=== PATIENT | female | born 1945 | race African-American/Black ===

== ENCOUNTER 2023-12-18 10:58 | Outpatient (AMB) | payer MEDICARE, MEDICAID, SELFPAY ==
--- NOTE | 2023-12-18 09:50 | HO.NEPHOV_ITS ---
Vital Signs 12/18/23 11:03 Height 5 ft 5 in Weight 140 lb BMI 23.3 BP 142/60 H Blood Pressure Location Lt brachial Position Sitting Pulse 60 Pulse Source Pulse Oximeter Pulse Oximetry (%) 96 Oxygen Delivery Method Room Air Intake Visit Reasons: CKD/ LVM Bottle Filler Required: No Accompanied by: Son Allergies No Known Allergies Allergy (Verified 12/18/23 11:06) HPI Comments Details: I had the pleasure of seeing Delaney in consultation and management of her history of hypokalemia and hypertension. She has had CVA with right hemiparesis. She has history of seizures and has been on Keppra. She has history of aortic stenosis and was evaluated for TAVR. She was deemed not to be a candidate for TAVR in the past. She regularly follows up cardiology. She has history of congestive heart failure. She is on multiple antihypertensive medications along with statins. She has history of adrenal hyperplasia seen on MRI and is going to be followed by an associate material handler. She has history of hemorrhagic shock with hemothorax. She has history of anemia and pancreatic cy st. She has had colonic polyps and is due colonoscopy in 2024. She also has history of to pancreatic cyst his which was deemed not to be high risk for malignancy and Gastroenterology is closely following it up. She denies any chest pain, shortness of breath, proximal nocturnal dyspnea, orthopnea or orthostatic symptoms. Her last serum creatinine has been normal. Her BP is not consistently at goal. [facility] Medical History (Updated 12/18/23 @ 09:57 by Marc Canales MD) Polyp of colon Aortic stenosis Essential (primary) hypertension History of radioactive iodine thyroid ablation DM (diabetes mellitus), type 2 with renal complications Chronic pain of both knees Stasis dermatitis of both legs Goiter Carpal tunnel syndrome, bilateral DM (diabetes mellitus), type 2 with neurological complications Microalbuminuria Hyperlipidemia CHF (congestive heart failure) Insomnia Aphasia Hemiparesis History of CVA with residual deficit Chronic kidney disease (CKD) Nonischemic cardiomyopathy History of [place] (myocardial infarction) Epileptic disorder Adrenal hyperplasia High plasma von Willebrand factor (vWF) Surgical History S/P cardiac cath Family History Son Hypertension Review of Systems Const All systems reviewed & are unremarkable except as noted in HPI and below Physical Exam Vital Signs: Last Vital Signs Pulse 60 12/18/23 11:03 BP 142/60 H 12/18/23 11:03 Pulse Ox 96 12/18/23 11:03 Oxygen Delivery Method Room Air 12/18/23 11:03 BMI result Body Mass Index 23.3 Const General: comfortable and no acute distress Orientation/consciousness: patient oriented x3 HEENT Head: Yes normocephalic Mouth: Normal oral and palatal mucosa present Eyes EOM: EOMs intact bilaterally Neck Neck: Yes supple Resp Auscultation: clear to auscultation bilaterally Cardio Jugular venous distension: no JVD Rate: regular rate Heart sounds: Murmur heart sound present GI Palpation (GI): Soft to palpation Auscultation: normal bowel sounds General: Yes no CVA tenderness Back/Spine/Pelvis Back: no CVA tenderness Skin General skin exam: no rashes or lesions noted Neuro General: patient oriented x3 Extrem General: Yes no pedal edema Results Reviewed Nephrology Results: No Data to Display Assessment & Plan Assessment & Plan (1) Hypokalemia: Code(s): E87.6 - Hypokalemia Category: Medical (2) Essential (primary) hypertension: Code(s): I10 - Essential (primary) hypertension Category: Medical (3) Adrenal hyperplasia: Code(s): E27.8 - Other specified disorders of adrenal gland Category: Medical (4) Cardiomyopathy: Code(s): I42.9 - Cardiomyopathy, unspecified Category: Medical Qualifiers: Cardiomyopathy type: other Qualified Code(s): I42.8 - Other cardiomyopathies (5) Hemiparesis affecting right side as late effect of cerebrovascular accident: Code(s): I69.351 - Hemiplegia and hemiparesis following cerebral infarction affecting right dominant side Category: Medical Plan Delaney has longstanding hypertension with cardiomyopathy and history of CVA with a residual right hemiparesis. She has a diabetic. She has history of hypokalemia. I reduced her amlodipine to 5 mg daily and started on spironolactone 12.5 mg daily which should control her serum potassium and blood pressure especially given history of cardiomyopathy. I shall maximize Spironolactone and D/C Amlodipine if her K permits. If her clinical status permits we need to explore whether she is a candidate for TAVR with a 2nd opinion in [place] ( if already turned down locally). She needs to follow-up with her associate material handler and needs labs to check for her adrenal issues. Her blood sugar needs to be maintained at goal. She needs to maintain good hydration and minimize salt in the diet. She should not take any nonsteroidal anti-inflammatories. All these have been discussed in detail. Time taken to review or her medical records from [place], patient encounter and documentation 61 minutes. Answered all questions. Follow-up appointment given. Orders: Orders Blood Urea Nitrogen Today E87.6 - Hypokalemia, I10 - Essential (primary) hypertension, I42.8 - Other cardiomyopathies Electrolytes Today E87.6 - Hypokalemia, I10 - Essential (primary) hypertension, I42.8 - Other cardiomyopathies Creatinine Today E87.6 - Hypokalemia, I10 - Essential (primary) hypertension, I42.8 - Other cardiomyopathies Medications: New spironolactone 12.5 mg (1/2 x 25 mg) PO DAILY 30 tabs 1RF Coding Level of Care Code New Pt Level 5 (78850) Diagnoses Hypokalemia E87.6 Essential (primary) hypertension I10 Adrenal hyperplasia E27.8 Other cardiomyopathy I42.8 Cardiomyopathy type: other Hemiparesis affecting right side as late effect of cerebrovascular accident I69.351
[2023-12-18 11:03] VITALS: BP 142/60; PULSE 60; O2SAT 96; BMI 23.3
== END 2023-12-18 11:34 | disposition home or self-care (01) ==
PROVIDERS: PCP Internal Medicine; Referring Provider Internal Medicine; Visit Provider Internal Medicine Nephrology
DX: E87.6 Hypokalemia (principal); I10 Essential (primary) hypertension; E27.8 Other specified disorders of adrenal gland; I42.8 Other cardiomyopathies; I69.351 Hemiplegia and hemiparesis following cerebral infarction affecting right dominant side
CPT/HCPCS: 99205; 99215

== ENCOUNTER → 2023-12-18 10:58 | Outpatient (BNVA) | payer MEDICARE, MEDICAID, SELFPAY | PROVIDERS: PCP Internal Medicine; Referring Provider Internal Medicine; Visit Provider Internal Medicine Nephrology | DX: E87.6 Hypokalemia (principal); E27.8 Other specified disorders of adrenal gland; I10 Essential (primary) hypertension; I69.351 Hemiplegia and hemiparesis following cerebral infarction affecting right dominant side; I42.8 Other cardiomyopathies | CPT/HCPCS: 99202 ==

== ENCOUNTER 2024-02-05 10:37 | Outpatient (REF) | payer MEDICARE, MEDICAID, SELFPAY ==
[2024-02-05 17:53] LABS: Anion Gap 14 (12-20); Blood Urea Nitrogen 15 mg/dL (9-16); Carbon Dioxide 25 mmol/L (22-29); Chloride 107 mmol/L (96-108); Estimated Glomerular Filt Rate 53; Potassium 3.1 mmol/L (3.3-5.1); Sodium 143 mmol/L (135-145)
== END 2024-02-05 10:38 | disposition home or self-care (01) ==
LOC: HO.HKASLDS 10:37
PROVIDERS: Visit Provider Internal Medicine Nephrology
DX: I42.8 Other cardiomyopathies (principal); E87.6 Hypokalemia; I10 Essential (primary) hypertension
CPT/HCPCS: 36415; 80051; 82565; 84520

== ENCOUNTER 2024-03-12 10:41 | Outpatient (AMB) | payer MEDICARE, MEDICAID, SELFPAY ==
--- NOTE | 2024-03-12 10:45 | MHC.OFFVIS ---
Vital Signs 03/12/24 10:49 Height 5 ft 5 in BP 138/70 Blood Pressure Location Lt brachial Position Sitting Pulse 56 Pulse Source Pulse Oximeter Pulse Oximetry (%) 98 Oxygen Delivery Method Room Air Intake Visit Reasons: ENP-Seizure and cva Intake Note: Patient presents in office for a new patient evaluation for seizures/stroke. Pt was being seen by [facility] neurology but was discharged 1 yr ago. Compression Molding Machine Setter Required: No Accompanied by: Son Allergies No Known Allergies Allergy (Verified 03/12/24 10:46) Medication List - Last Reconciled 03/12/24 by Cindy Bush MD amlodipine 5 mg PO DAILY aspirin-dipyridamole 25-200 mg 1 cap PO BID atorvastatin 80 mg PO DAILY hydralazine 100 mg PO TID labetalol mg PO TID levetiracetam 500 mg PO BID spironolactone 12.5 mg (1/2 x 25 mg) PO DAILY valsartan 160 mg PO DAILY HPI Comments Details: 78y/o Right handed female comes for further management of seizures. she is accompanied by her son who helps with history.Some history was also obtained from her PCP Dr. Harley's note.she had a CVA ( Hemorrhagic stroke )in November of 2021 when she presented with Right hemiparesis and aphasia. According to her son she was started on Aspirin /dipyridamol 25/200 and levetiracetam 500mg bid He has not witnessed a seizure but was told that her seizures were due to stroke and needs it life long. She is home , wheelchair and bed bound with 24 hr help. she has some speech and swallowing issues and weakness Right UE and LE. she denies any side effects form medications I don't have reports from her stroke admission she has sleep issues with snoring and hypersomnia. [facility] Medical History Seizure Hypersomnia Snoring Polyp of colon Aortic stenosis Essential (primary) hypertension History of radioactive iodine thyroid ablation DM (diabetes mellitus), type 2 with renal complications Chronic pain of both knees Stasis dermatitis of both legs Goiter Carpal tunnel syndrome, bilateral DM (diabetes mellitus), type 2 with neurological complications Microalbuminuria Hyperlipidemia CHF (congestive heart failure) Insomnia Aphasia Hemiparesis History of CVA with residual deficit Chronic kidney disease (CKD) Nonischemic cardiomyopathy History of [place] (myocardial infarction) Epileptic disorder Adrenal hyperplasia High plasma von Willebrand factor (vWF) Surgical History S/P cardiac cath Family History Son Hypertension Physical Exam Vital Signs: Last Vital Signs Pulse 56 03/12/24 10:49 BP 138/70 03/12/24 10:49 Pulse Ox 98 03/12/24 10:49 Oxygen Delivery Method Room Air 03/12/24 10:49 Const General: cooperative and comfortable Nutritional Appearance: overweight Orientation/consciousness: patient oriented x3 Eyes Pupils: Equal, round and reactive pupils present Neuro Other: Mild right facial weakness Speech- able to name , repeat , comprehend, dysarthria Mallampatti grade 4 Facial sensation - normal Motor- Left UE and LE 5/5 Tone - normal Right UE- 2-3/5 -spasticity in Right shoulder elbow wrist and fingers Left LE- 2-3/5 with increased tone wheel chair bound General: patient oriented x3 and Unable to assess gait Cranial nerves: Yes Equal, round and reactive pupils present, Yes Bilaterally intact EOM present, Yes Nystagmus not present and Yes Midline tongue present Cognition (Neuro): normal cognition Gait exam (Neuro): Unable to assess gait Deep tendon reflexes (DTR's): Right triceps reflex intensity grade: 3+, Left triceps reflex intensity grade: 2+, Rt Biceps (C5, C6): 3+, Left biceps reflex intensity grade: 2+, Right brachioradialis reflex intensity grade: 3+, Left brachioradialis reflex intensity grade: 2+, Right patellar reflex intensity grade: 3+ and Left patellar reflex intensity grade: 2+ Assessment & Plan Assessment & Plan (1) Seizure: Code(s): R56.9 - Unspecified convulsions Category: Medical (2) Hemiparesis affecting right side as late effect of cerebrovascular accident: Code(s): I69.351 - Hemiplegia and hemiparesis following cerebral infarction affecting right dominant side Category: Medical Plan Reviewed MRI brain from [place] Will repeat EEG Continue levetiracetam 500mg bid ASA/Dipyridamol 25/200 qd Risk factor reduction Home sleep test to r/o sleep apnea Will refer to Physiatry for treatment of spasticty with Botox. Orders: Orders RT home sleep study 03/12/24 G47.10 - Hypersomnia, unspecified, R06.83 - Snoring EEG electroencephalogram 03/12/24 R56.9 - Unspecified convulsions Referrals Physiatry Referral I69.351 - Hemiplegia and hemiparesis following cerebral infarction affecting right dominant side Medications: New levetiracetam 500 mg PO BID 60 tabs 6RF Coding Level of Care Code New Pt Level 4 (00109) Complex EM visit Add On G2211 Diagnoses Seizure R56.9 Hemiparesis affecting right side as late effect of cerebrovascular accident I69.351
[2024-03-12 10:49] VITALS: BP 138/70; PULSE 56; O2SAT 98
== END 2024-03-12 11:13 | disposition home or self-care (01) ==
PROVIDERS: PCP Internal Medicine; Visit Provider Psychiatry & Neurology Neurology
DX: R56.9 Unspecified convulsions (principal); I69.351 Hemiplegia and hemiparesis following cerebral infarction affecting right dominant side
CPT/HCPCS: 99204; G2211

== ENCOUNTER → 2024-03-12 10:41 | Outpatient (BNVA) | payer MEDICARE, MEDICAID, SELFPAY | PROVIDERS: PCP Internal Medicine; Visit Provider Psychiatry & Neurology Neurology | DX: I69.351 Hemiplegia and hemiparesis following cerebral infarction affecting right dominant side (principal); R56.9 Unspecified convulsions | CPT/HCPCS: 99202 ==

== ENCOUNTER 2024-03-18 10:38 | Outpatient (AMB) | payer MEDICARE, MEDICAID, SELFPAY ==
[2024-03-18 10:41] VITALS: BP 164/64; PULSE 65; O2SAT 99
--- NOTE | 2024-03-18 10:41 | HO.NEPHOV ---
Vital Signs 03/18/24 10:41 Height 5 ft 5 in BMI Reason not done Patient refused/unable BP 164/64 H Blood Pressure Location Lt brachial Position Sitting Pulse 65 Pulse Source Pulse Oximeter Pulse Oximetry (%) 99 Oxygen Delivery Method Room Air Intake Visit Reasons: 3 mon follow up-[facility] Rental Car Ferry Driver Required: No Accompanied by: Son Allergies No Known Allergies Allergy (Verified 03/18/24 10:43) HPI Comments Details: Delaney was seen for management of her history of CKD, hypokalemia and hypertension. She has had CVA with right hemiparesis. She has history of seizures and has been on Keppra. She has history of aortic stenosis and was evaluated for TAVR. She was deemed not to be a candidate for TAVR in the past. She regularly follows up cardiology. She has history of congestive heart failure. She is on multiple antihypertensive medications along with statins. She has history of adrenal hyperplasia seen on MRI and is going to be followed by an log inspector. She has history of anemia and pancreatic cyst. She has had colonic polyps and is due colonoscopy in 2024. She also has history of to pancreatic cyst his which was deemed not to be high risk for malignancy and Gastroenterology is closely following it up. She denies any chest pain, shortness of breath, proximal nocturnal dyspnea, orthopnea or orthostatic symptoms. Her last serum creatinine has been stable. Her BP is not consistently at goal. [facility] Medical History Seizure Hypersomnia Snoring Polyp of colon Aortic stenosis Essential (primary) hypertension History of radioactive iodine thyroid ablation DM (diabetes mellitus), type 2 with renal complications Chronic pain of both knees Stasis dermatitis of both legs Goiter Carpal tunnel syndrome, bilateral DM (diabetes mellitus), type 2 with neurological complications Microalbuminuria Hyperlipidemia CHF (congestive heart failure) Insomnia Aphasia Hemiparesis History of CVA with residual deficit Chronic kidney disease (CKD) Nonischemic cardiomyopathy History of MN (myocardial infarction) Epileptic disorder Adrenal hyperplasia High plasma von Willebrand factor (vWF) Surgical History S/P cardiac cath Family History Son Hypertension Review of Systems Const All systems reviewed & are unremarkable except as noted in HPI and below Physical Exam Vital Signs: Last Vital Signs Pulse 65 03/18/24 10:41 BP 164/64 H 03/18/24 10:41 Pulse Ox 99 03/18/24 10:41 Oxygen Delivery Method Room Air 03/18/24 10:41 Const General: comfortable and no acute distress Orientation/consciousness: patient oriented x3 HEENT Head: Yes normocephalic Mouth: Normal oral and palatal mucosa present Eyes EOM: EOMs intact bilaterally Neck Neck: Yes supple Resp Auscultation: clear to auscultation bilaterally Cardio Jugular venous distension: no JVD Rate: regular rate Heart sounds: Murmur heart sound present GI Palpation (GI): Soft to palpation Auscultation: normal bowel sounds General: Yes no CVA tenderness Back/Spine/Pelvis Back: no CVA tenderness Skin General skin exam: no rashes or lesions noted Neuro General: patient oriented x3 Extrem General: Yes no pedal edema Results Reviewed Nephrology Results: Sodium 143 mmol/L (135-145) 02/05/24 Potassium 3.1 mmol/L (3.3-5.1) L 02/05/24 Chloride 107 mmol/L (96-108) 02/05/24 Carbon Dioxide 25 mmol/L (22-29) 02/05/24 BUN 15 mg/dL (9-16) 02/05/24 Creatinine 1.02 mg/dL (0.5-1.4) 02/05/24 Assessment & Plan Assessment & Plan (1) Essential (primary) hypertension: Code(s): I10 - Essential (primary) hypertension Category: Medical (2) Hypokalemia: Code(s): E87.6 - Hypokalemia Category: Medical (3) CKD stage 3a, GFR 45-59 ml/min: Code(s): N18.31 - Chronic kidney disease, stage 3a Category: Medical Plan Delaney has longstanding hypertension with cardiomyopathy and history of CVA with a residual right hemiparesis. She has a diabetic. She has history of hypokalemia. I rincreased her spironolactone to 25 mg daily which should control her serum potassium and blood pressure especially given history of cardiomyopathy. I shall maximize Spironolactone and D/C Amlodipine if her K permits. If her clinical status permits we need to explore whether she is a candidate for TAVR with a 2nd opinion in [place] ( if already turned down locally). She needs to follow-up with her log inspector and needs labs to check for her adrenal issues. Her blood sugar needs to be maintained at goal. She needs to maintain good hydration and minimize salt in the diet. She should not take any nonsteroidal anti-inflammatories. All these have been discussed in detail. Answered all questions. Follow-up appointment given Orders: Orders Creatinine 6 Weeks E87.6 - Hypokalemia, I10 - Essential (primary) hypertension, N18.31 - Chronic kidney disease, stage 3a Electrolytes 6 Weeks E87.6 - Hypokalemia, I10 - Essential (primary) hypertension, N18.31 - Chronic kidney disease, stage 3a Blood Urea Nitrogen 6 Weeks E87.6 - Hypokalemia, I10 - Essential (primary) hypertension, N18.31 - Chronic kidney disease, stage 3a Medications: Changed From spironolactone 12.5 mg (1/2 x 25 mg) PO DAILY 30 tabs 1RF To spironolactone 25 mg PO DAILY 30 days 30 tabs 3RF Coding Level of Care Code Est Pt Level 4 (12337) Diagnoses Essential (primary) hypertension I10 Hypokalemia E87.6 CKD stage 3a, GFR 45-59 ml/min N18.31
== END 2024-03-18 11:08 | disposition home or self-care (01) ==
LOC: HO.HKAS 10:39
PROVIDERS: PCP Internal Medicine; Visit Provider Internal Medicine Nephrology
DX: I10 Essential (primary) hypertension (principal); E87.6 Hypokalemia; N18.31 Chronic kidney disease, stage 3a
CPT/HCPCS: 99214

== ENCOUNTER → 2024-03-18 10:38 | Outpatient (BNVA) | payer MEDICARE, MEDICAID, SELFPAY | PROVIDERS: PCP Internal Medicine; Visit Provider Internal Medicine Nephrology | DX: I12.9 Hypertensive chronic kidney disease with stage 1 through stage 4 chronic kidney disease, or unspecified chronic kidney disease (principal); E87.6 Hypokalemia; N18.31 Chronic kidney disease, stage 3a; I69.351 Hemiplegia and hemiparesis following cerebral infarction affecting right dominant side | CPT/HCPCS: 99212 ==

== ENCOUNTER 2024-04-29 10:37 | Outpatient (AMB) | payer MEDICARE, MEDICAID, SELFPAY ==
--- NOTE | 2024-04-29 10:56 | HO.NEPHOV_ITS ---
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 She has had CVA with right hemiparesis. She has history of seizures and has been on Keppra. She has history of aortic stenosis and was evaluated for TAVR. She was deemed not to be a candidate for TAVR in the past. She regularly follows up cardiology. She has history of congestive heart failure. She is on multiple antihypertensive medications along with statins. She has history of adrenal hyperplasia seen on MRI and is going to be followed by an coordinator of health services. She has history of anemia and pancreatic cyst. She has had colonic polyps and is due colonoscopy in 2024. She also has history of to pancreatic cyst his which was deemed not to be high risk for malignancy and Gastroenterology is closely following it up. She denies any chest pain, shortness of breath, proximal nocturnal dyspnea, orthopnea or orthostatic symptoms. Her last serum creatinine has been stable. Her BP is not consistently at goal, but better. [facility] Medical History (Updated 04/02/24 @ 14:57 by Marc Canales MD) Seizure Hypersomnia Snoring Polyp of colon Aortic stenosis Essential (primary) hypertension History of radioactive iodine thyroid ablation DM (diabetes mellitus), type 2 with renal complications Chronic pain of both knees Stasis dermatitis of both legs Goiter Carpal tunnel syndrome, bilateral DM (diabetes mellitus), type 2 with neurological complications Microalbuminuria Hyperlipidemia CHF (congestive heart failure) Insomnia Aphasia Hemiparesis History of CVA with residual deficit Chronic kidney disease (CKD) Nonischemic cardiomyopathy History of [place] (myocardial infarction) Epileptic disorder Adrenal hyperplasia High plasma von Willebrand factor (vWF) Surgical History S/P cardiac cath Family History Son Hypertension Review of Systems Const All systems reviewed & are unremarkable except as noted in HPI and below Physical Exam Vital Signs: Last Vital Signs Pulse 65 04/29/24 10:57 BP 150/62 H 04/29/24 10:57 Pulse Ox 99 04/29/24 10:57 Oxygen Delivery Method Room Air 04/29/24 10:57 Const General: comfortable and no acute distress Orientation/consciousness: patient oriented x3 HEENT Head: Yes normocephalic Mouth: Normal oral and palatal mucosa present Eyes EOM: EOMs intact bilaterally Neck Neck: Yes supple Resp Auscultation: clear to auscultation bilaterally Cardio Jugular venous distension: no JVD Rate: regular rate Heart sounds: Murmur heart sound present GI Palpation (GI): Soft to palpation Auscultation: normal bowel sounds General: Yes no CVA tenderness Back/Spine/Pelvis Back: no CVA tenderness Skin General skin exam: no rashes or lesions noted Neuro General: patient oriented x3 Extrem General: Yes no pedal edema Assessment & Plan Assessment & Plan (1) CKD stage 3a, GFR 45-59 ml/min: Code(s): N18.31 - Chronic kidney disease, stage 3a Category: Medical (2) Hypokalemia: Code(s): E87.6 - Hypokalemia Category: Medical (3) Essential (primary) hypertension: Code(s): I10 - Essential (primary) hypertension Category: Medical (4) Adrenal hyperplasia: Code(s): E27.8 - Other specified disorders of adrenal gland Category: Medical Plan Delaney has longstanding hypertension with cardiomyopathy and history of CVA with a residual right hemiparesis. She has a diabetic. She has history of hypokalemia. I increased her spironolactone to 50 mg daily which should control her serum potassium and blood pressure especially given history of cardiomyopathy. I shall maximize Spironolactone and D/C Amlodipine if her K permits. If her clinical status permits we need to explore whether she is a candidate for TAVR with a 2nd opinion in [place] ( if already turned down locally). She needs to follow-up with her coordinator of health services and needs labs to check for her adrenal issues. Her blood sugar needs to be maintained at goal. She needs to maintain good hydration and minimize salt in the diet. She should not take any nonsteroidal anti-inflammatories. All these have been discussed in detail. Answered all questions. Follow-up appointment given Orders: Orders Creatinine 4 Months N18.31 - Chronic kidney disease, stage 3a Electrolytes 4 Months N18.31 - Chronic kidney disease, stage 3a Blood Urea Nitrogen 4 Months N18.31 - Chronic kidney disease, stage 3a Medications: Changed From amlodipine 5 mg PO DAILY 90 tabs 1RF To amlodipine 10 mg PO DAILY 90 tabs 3RF 90 days From spironolactone 25 mg PO DAILY 30 days 30 tabs 3RF To spironolactone 50 mg PO DAILY 90 tabs 3RF 90 days Coding Level of Care Code Est Pt Level 4 (19657) Diagnoses CKD stage 3a, GFR 45-59 ml/min N18.31 Hypokalemia E87.6 Essential (primary) hypertension I10 Adrenal hyperplasia E27.8
[2024-04-29 10:57] VITALS: BP 150/62; PULSE 65; O2SAT 99
== END 2024-04-29 11:18 | disposition home or self-care (01) ==
PROVIDERS: PCP Internal Medicine; Visit Provider Internal Medicine Nephrology
DX: N18.31 Chronic kidney disease, stage 3a (principal); E87.6 Hypokalemia; I10 Essential (primary) hypertension; E27.8 Other specified disorders of adrenal gland
CPT/HCPCS: 99214

== ENCOUNTER → 2024-04-29 10:37 | Outpatient (BNVA) | payer MEDICARE, MEDICAID, SELFPAY | PROVIDERS: PCP Internal Medicine; Visit Provider Internal Medicine Nephrology | DX: I12.9 Hypertensive chronic kidney disease with stage 1 through stage 4 chronic kidney disease, or unspecified chronic kidney disease (principal); E27.8 Other specified disorders of adrenal gland; N18.31 Chronic kidney disease, stage 3a; E87.6 Hypokalemia | CPT/HCPCS: 99212 ==

== ENCOUNTER 2024-05-30 10:43 | Outpatient (AMB) | payer MEDICARE, MEDICAID, SELFPAY ==
--- NOTE | 2024-05-30 10:45 | MHC.OFFVIS ---
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 Bush. Allergies No Known Allergies Allergy (Verified 05/30/24 10:46) HPI Comments Details: Patient referred from Neurology Dr. Bush for spasticity management, possible botulinum toxin injection. Here with Davie, son. History of hemorrhagic stroke 08/2020 with residual right hemiparesis. History of CKD 3, aortic stenosis, adrenal hyperplasia, CHF, HTN, anemia and pancreatic cyst. Patient is on aspirin and Plavix. No oral spasticity medication listed on record. Son aware about spasticity. PT has been working on it. Tight on the elbow and wrist flexor, some on the right knee flexion. Has not tried baclofen. She had Botox once to right leg while she was in short term rehab but none since. Aphasia has improved since stroke. WC level, aliya transfer. Assistance with dressing, meal prep, dressing. Uses left hand to eat. Uses briefs, does not use toilet or commode. Bed baths only. Reports pain on right hand and right knee pain. History of right knee xray, had CT done for right knee. Does not complain of shoulder pain. Just started outpatient PT at [facility]. ON LICENSE OF [facility] Medical History (Updated 05/30/24 @ 11:48 by Ashley Contreras MD) Seizure Hypersomnia Snoring Polyp of colon Aortic stenosis Essential (primary) hypertension History of radioactive iodine thyroid ablation DM (diabetes mellitus), type 2 with renal complications Chronic pain of both knees Stasis dermatitis of both legs Goiter Carpal tunnel syndrome, bilateral DM (diabetes mellitus), type 2 with neurological complications Microalbuminuria Hyperlipidemia CHF (congestive heart failure) Insomnia Aphasia Hemiparesis History of CVA with residual deficit Chronic kidney disease (CKD) Nonischemic cardiomyopathy History of [place] (myocardial infarction) Epileptic disorder Adrenal hyperplasia High plasma von Willebrand factor (vWF) Surgical History S/P cardiac cath Family History Son Hypertension Social History Current occupational status: disabled Current occupation: rt handed Review of Systems Const All systems reviewed & are unremarkable except as noted in HPI and below Physical Exam Vital Signs: BMI result Body Mass Index 23.3 Constitutional: Patient appears to be in no acute distress, well nourished and well developed. Able to appropriately respond to questions. Neurological: Right elbow flexion Tio 2 only, but has cogwheeling at end range towards full extension Right wrist flexion Tio 3 Fingers are not flex, straight on IP but slightly flexed on MCP joints Right knee flexion Tio 1-2 Right dorsiflexion Tio 0, foot not inverted Results Reviewed Results Reviewed: I reviewed records from the following: Neurology Nephrology Assessment & Plan Assessment & Plan (1) Spastic hemiparesis affecting dominant side: Code(s): G81.10 - Spastic hemiplegia affecting unspecified side Category: Medical (2) Hemiparesis affecting right side as late effect of cerebrovascular accident: Code(s): I69.351 - Hemiplegia and hemiparesis following cerebral infarction affecting right dominant side Category: Medical Plan Patient?s abnormal muscle tone in the setting of right spastic hemiparesis secondary stroke is interfering with functional ability, and is expected to result in joint contracture without adequate intervention. Standard medical treatments such as PT have failed. Surgical intervention is considered to be the last option. Therefore chemodenervation using botulinum is deemed necessary to enhance function and allow additional therapeutic modalities to be employed. After a long discussion with the patient and son, we have decided to go ahead and do botulinum toxin injection into right upper and lower extremities. A total of 300 units of Botox is anticipated. The procedure will being scheduled after prior authorization. Muscles to be injected: Right brachialis 50 units Right brachioradialis 50 units Right biceps or FCU 50 units? Right FCR 50 units Right medial hamstrings 50 units Right lateral hamstrings 50 units Aiming for injection on June 25, Sunday. Assessment and plan discussed with patient, and patient was agreeable. All questions were answered thoroughly. Ashley Contreras MD, BIRDIE Board Certified, [place] Board [employer] and Rehabilitation (ABPMR) Board Certified, [place] Board [employer] Electrodiagnostic Medicine (ABEM) Coding Level of Care Code New Pt Level 4 (58872) Complex EM visit Add On G2211 Diagnoses Spastic hemiparesis affecting dominant side G81.10 Hemiparesis affecting right side as late effect of cerebrovascular accident I69.351
[2024-05-30 10:46] VITALS: BMI 23.3
--- OUTSIDE RECORDS SUMMARY | 2024-05-30 10:55 | XMS_ITS | Continuity of Care Document ---
Author Organization [facility] Address [address] [place] [id number]- Care Team Providers Care Director Of Patient Safety Name Role Phone Cricket SOLIS, Isaiah Primary Care Physician ( [phone] Encounter [facility] Date(s): 04/11/24 - 05/11/24 [facility] [address] [place] [id number] Encounter Type: Triage Allergies, Adverse Reactions, Alerts No Known Allergies Immunizations Given and Recorded Vaccine Date Status Refusal Reason SARS-CoV-2 (COVID-19) Ad26 vaccine 09/14/21 Given Medications acetaminophen 325 mg oral tablet 650 mg, By Mouth, Every 4 hours, PRN, Temperature Greater than 100.5, Refills 0, Maintenance, Pain , Mild, 09/14/21 9:33:00 AM EDT, Partial fill upon patient request if the prescription is for a schedule II opioid drug. Start Date: 09/14/21 Status: Ordered Repeat number: 1 Aggrenox ER Capsule 1 capsule, By Mouth, 2 times a day, 0 Refills, Maintenance, 11/12/22 12:31:00 PM EDT, ER Capsule, Partial fill upon patient request if the prescription is for a schedule II opioid drug. Start Date: 11/12/22 Status: Ordered Repeat number: 1 amLODIPine 10 mg oral tablet 10 mg, By Mouth, Daily, # 30 tablet, Refills 0, Tot. Refills 0, Soft Stop, 04/23/23 2:13:00 PM EST, Route to Pharmacy Electronically, [facility]/pharmacy #[id number], Partial fill upon patient request if the prescription is for a schedule II opioid drug., 164, cm, 11/12/22 11:29:00 EDT, Height, 65.9, kg, 11/09/22 5:22:00 EDT, Dry Weight Start Date: 04/23/23 Stop Date: 05/23/23 Status: Ordered Quantity: 30.0 Unit: tablet Repeat number: 1 atorvastatin 80 mg oral tablet 1 tablet = 80 mg, By Mouth, Daily, # 90 tablet, 0 Refills, Maintenance, 08/24/21 3:10:00 PM EDT, Tablet, Partial fill upon patient request if the prescription is for a schedule II opioid drug. Start Date: 08/24/21 Status: Ordered Quantity: 90.0 Unit: tablet Repeat number: 1 bisacodyl 10 mg rectal suppository 1 supp = 10 mg, Rectally, 2 times a day, PRN Constipation, 0 Refills, Maintenance, 11/12/22 12:31:00PM EDT, Suppository, Partial fill upon patient request if the prescription is for a schedule II opioid drug. Start Date: 11/12/22 Status: Ordered Repeat number: 1 hydrALAZINE 25 mg oral tablet 100 mg, 4, tablet, By Mouth, 3 times a day, Refills 0, Maintenance, 11/25/21 12:59:00 PM EDT, Partialfill upon patient request if the prescription is for a schedule II opioid drug. Start Date: 11/25/21 Status: Ordered Repeat number: 1 labetalol 100 mg oral tablet 3 tablet = 300 mg, By Mouth, Every 8 hours, 0 Refills, Maintenance, 11/25/21 1:00:00 PM EDT, Tablet, Partial fill upon patient request if the prescription is for a schedule II opioid drug. Start Date: 11/25/21 Status: Ordered Repeat number: 1 levETIRAcetam 500 mg oral tablet 1 tablet, By Mouth, 2 times a day, # 180 tablet, 0 Refills, Maintenance, 07/30/23 9:13:00 AM EDT, [facility], 178, cm, 05/17/23 3:27:00 EST, Height, 64, kg, 05/17/23 3:27:00 EST, Dry Weight Start Date: 07/30/23 Status: Ordered Quantity: 180.0 Unit: tablet Repeat number: 1 lidocaine 5% topical film Topically, Daily, 0 Refills, Maintenance, 11/11/22 12:45:00 PM EDT, Patch, Partial fill upon patientrequest if the prescription is for a schedule II opioid drug. Start Date: 11/11/22 Status: Ordered Repeat number: 1 magnesium oxide 400 mg oral tablet = 400 mg, By Mouth, 2 times a day, 0 Refills, Maintenance, 11/11/22 12:59:00 PM EDT, Tablet, Partialfill upon patient request if the prescription is for a schedule II opioid drug. Start Date: 11/11/22 Status: Ordered Repeat number: 1 metFORMIN 500 mg oral tablet 1 tablet = 500 mg, By Mouth, 2 times a day, with meals Start Date: 10/29/22 Status: Ordered Repeat number: 1 metFORMIN 500 mg oral tablet 0 Refills, Maintenance, 05/17/23 3:21:00 AM EST, Partial fill upon patient request if the prescription is for a schedule II opioid drug. Start Date: 05/17/23 Status: Ordered Repeat number: 1 MiraLax Powder 1 pack/packet = 17 Gm, By Mouth, Daily, PRN Constipation, 0 Refills, Maintenance, 11/11/22 12:45:00 PM EDT, Powder, Partial fill upon patient request if the prescription is for a schedule II opioid drug. Start Date: 11/11/22 Status: Ordered Repeat number: 1 omeprazole 20 mg oral enteric coated capsule 1 capsule = 20 mg, By Mouth, Daily Start Date: 10/29/22 Status: Ordered Repeat number: 1 valsartan 160 mg oral tablet 160 mg, 1, tablet, By Mouth, Daily Start Date: 10/29/22 Status: Ordered Repeat number: 1 Patient Care team information Care Team Personnel Name: Joshua Schmid Position: [facility] Associate Professional Member Role: Lifetime Consulting Provider Address: [address] [place], [place] [id number] [facility] [place], [place] [address] Telecom: Name: Yanique Carrero RN Position: [facility] RN Member Role: Primary Care Nurse Name: Tito Guido MD Position: [facility] Physician - Oncology Member Role: Lifetime Consulting Physician Address: [address] [place] [address] Hem/Onc [place], [place] [address] Telecom: Name: Janet Durham RN Position: [facility] RN Supv Member Role: Primary Care Nurse Name: Cathy Quesada RN Position: [facility] RN Member Role: Primary Care Nurse Name: Aliza Martinez RN Position: S RN Member Role: Primary Care Nurse Name: Isaiah Harley MD Position: [facility] Outreach Member Role: PCP Address: [address] [place] [address]- Telecom: Name: Linda Gonzalez RN Position: S RN Member Role: Primary Care Nurse Name: Kylee Do RN Position: [facility] RN Member Role: Primary Care Nurse Name: Yanelis Cabrera RN Position: [facility] RN Supv Member Role: Primary Care Nurse Name: Kayleigh Rojo RN Position: [facility] RN Member Role: Primary Care Nurse Name: Jina Donald RN Position: [facility] RN Member Role: Primary Care Nurse Name: Pinky Knisey RN Position: [facility] RN Member Role: Primary Care Nurse Name: Malena Fajardo RN Position: [facility] RN Member Role: Primary Care Nurse Name: Jeff James MD Position: [facility] Outreach Member Role: Lifetime Consulting Physician Address: [address] [facility] [address] [facility] [place] [address]- Telecom: Name: Yoseph Faye RN Position: [facility] RN Member Role: Primary Care Nurse Name: Zuleika Ruelas RN Position: [facility] RN Member Role: Primary Care Nurse Name: Lore Cabrera RN Position: [facility] RN Member Role: Primary Care Nurse Name: Noman Avitia Position: S RN Member Role: Primary Care Nurse Care Team Related Persons Name: NERISSA NELSON Insurance Providers Guarantor name: LUCIANO NELSON Health Plan Information #: 1 Payer: MEDICARE PART B OUTPT Member Number: NA Policy Number: NA Group Number: NA Health Plan Information #: 2 Payer: [place] Member Number: NA Policy Number: NA Group Number: NA
== END 2024-05-30 15:24 | disposition home or self-care (01) ==
PROVIDERS: PCP Internal Medicine; Visit Provider Physical Medicine & Rehabilitation
DX: I69.351 Hemiplegia and hemiparesis following cerebral infarction affecting right dominant side (principal)
CPT/HCPCS: 99204; G2211

== ENCOUNTER → 2024-05-30 10:43 | Outpatient (BNVA) | payer MEDICARE, MEDICAID, SELFPAY | PROVIDERS: PCP Internal Medicine; Visit Provider Physical Medicine & Rehabilitation | DX: I69.351 Hemiplegia and hemiparesis following cerebral infarction affecting right dominant side (principal); Z79.01 Long term (current) use of anticoagulants; Z79.82 Long term (current) use of aspirin | CPT/HCPCS: 99202 ==

== ENCOUNTER → 2024-06-04 11:22 | Outpatient (BNV) | payer MEDICARE, MEDICAID, SELFPAY | PROVIDERS: PCP Internal Medicine; Visit Provider Psychiatry & Neurology Neurology | DX: R06.83 Snoring (principal); G47.10 Hypersomnia, unspecified | CPT/HCPCS: 95806 ==

== ENCOUNTER → 2024-07-23 12:30 | Outpatient (BNV) | payer MEDICARE, MEDICAID, SELFPAY | PROVIDERS: PCP Internal Medicine; Visit Provider Physical Medicine & Rehabilitation | DX: G81.10 Spastic hemiplegia affecting unspecified side (principal) | CPT/HCPCS: 64642; 64643; 95874 ==

== ENCOUNTER 2024-07-23 14:33 | Outpatient (REF) | payer MEDICARE, MEDICAID, SELFPAY ==
--- NOTE | 2024-07-23 12:30 | EMG_ITS ---
PROCEDURE PERFORMED: Botulinum toxin chemodenervation DIAGNOSIS:? Spastic hemiparesis affecting dominant side? G81.10 Hemiparesis affecting right side as late effect of cerebrovascular accident? I69.351 INDICATION: spastic muscles? PREVIOUS TREATMENT AND RESPONSE: Oral antispasticity medications and physical therapy without response EXAM ON DAY OF PROCEDURE: 05/30/24 Right elbow flexion Tio 2 only, but has cogwheeling at end range towards full extension Right wrist flexion Tio 3 Fingers are not flex, straight on IP but slightly flexed on MCP joints Right knee flexion Tio 1-2 Right dorsiflexion Tio 0, foot not inverted TOXIN USED: Botox PROCEDURE: The procedure was explained to the patient/caregiver, and informed consent was obtained. The patient laid down on bed. Right arm and leg were cleansed with betadine in the usual sterile manner. A 2 inch 25 gauge needle electrode was used.? Muscle Units per site Number of sites Units per muscle Right brachialis 50 1 50 Right brachioradialis 50 1 50 Right biceps 50 1 50 Right FCR 50 1 50 Right MH 25 2 50 Right LH 25 2 50 ? EMG-guidance was used during the injection. A total of 300 units injected.? 0 units wastage. Vial size: 100 units per vial 1 200 units per vial 1 Dilution: 100 units per 1 ml of preservative free saline for RUE; 100 units per 1 ml for RLE The patient tolerated the procedure well without complications. The patient was observed for 30 minutes, before being discharged with post procedure instructions. CODING: CPT code: 16406 1 ext, 1-4 muscles? 39483 each add?l limb, 1-4 muscles Wastage: none Guidance code: 46384 EMG guidance for chemodenervation J code: Botox J0585? [facility] code: 0341-6727-90 and [id number] Lot #: [id number], [id number] Expiration date: [facility]
--- OUTSIDE RECORDS SUMMARY | 2024-07-23 17:34 | XMS_ITS | Clinical Summary ---
Author Organization [facility] Address [address] [place] [address] Care Team Providers Care Rv Service Technician Name Role Phone Isaiah Harley MD Primary Care Provider [phone] Allergies No known active allergies Medications Medication Sig Dispensed Refills Start Date End Date Status amLODIPine (NORVASC) tablet 10 mg Take 1 tablet (10 mg total) by mouth daily. 0 05/24/2023 Active dipyridamole-aspirin (AGGRENOX) 200-25 MG per 12 hr capsule Take 1 capsule by mouth 2 (two) times a day. 0 06/22/2023 Active atorvastatin (LIPITOR) tablet 80 mg Take 1 tablet (80 mg total) by mouth daily. 0 02/28/2023 Active hydrALAZINE (APRESOLINE) 100 MG tablet Take 1 tablet (100 mg total) by mouth 3 (three) times a day. 0 07/06/2023 Active labetalol (NORMODYNE) 300 MG tablet Take 1 tablet (300 mg total) by mouth 3 (three) times a day. 0 07/14/2013 Active levETIRAcetam (KEPPRA) 500 MG tablet Take 1 tablet (500 mg total) by mouth. 0 Active metFORMIN (GLUCOPHAGE) tablet 1000 mg Take 1 tablet (1,000 mg total) by mouth. 0 06/19/2021 Active Klor-Con M20 20 MEQ tablet Take 1 tablet (20 mEq total) by mouth 2 (two) times a day. for 7 days 0 06/26/2023 Active valsartan (DIOVAN) tablet 160 mg Take 1 tablet (160 mg total) by mouth daily. 0 07/31/2023 Active Active Problems No known active problems Social History Tobacco Use Types Packs/Day Years Used Date Smoking Tobacco: Never Smokeless Tobacco: Never Tobacco Cessation:Counseling Given: Not Answered Alcohol Use Standard Drinks/Week Comments Never 0 (1 standard drink = 0.6 oz pur e alcohol) Sex and Gender Information Value Date Recorded Sex Assigned at Not on file Gender Identity Not on file Sexual Orientation Not on file Job Start Date Occupation Industry Not on file Not on file Not on file Last Filed Vital Signs Vital Sign Reading Time Taken Comments Blood Pressure 159/50 03/21/2024 10:56 AM EDT Pulse 65 03/21/2024 10:56 AM EDT Temperature 37.1 ??C (98.7 ??F) 03/21/2024 10:56 AM E DT Respiratory Rate - - Oxygen Saturation 100% 03/21/2024 10:56 AM EDT Inhaled Oxygen Concentration - - Weight - - Height - - Body Mass Index - - Plan of Treatment Health Maintenance Due Date Last Done Comments Hepatitis C Screening 1946 Depression Screening 1958 Preventative Health Evaluation 1964 DTap / Tdap / Td (1 - Tdap) 1965 Shingrix-Zoster Vaccine (1 of 2) 1996 Fall Risk Assessment 2011 Osteoporosis Screening (DEXA Scan) 2011 Pneumococcal Vaccine (1 of 1 - PCV) 2011 RSV Adult > 60+ Yrs or (1 - 1-dose 75+ series) 2021 COVID-19 Vaccine ( season) 2024 03/27/2022, 09/14/2021, 10/09/2020, Additional history exists Influenza Vaccine (#1) 2024 Hepatitis B Vaccines Aged Out No long er eligible based on patient's age to complete this topic RSV Ped < 20 months Aged Out No longe r eligible based on patient's age to complete this topic Care Teams Rv Service Technician Relationship Specialty Start Date End Date Isaiah Harley MD [address] [place] [id number] PCP - General Internal Medicine 07/27/23
--- OUTSIDE RECORDS SUMMARY | 2024-07-23 17:34 | XMS_ITS | Clinical Summary ---
Author Organization [facility] Address [address] [address] Phone Care Team Providers Care Industrial Retrofit Designer Name Role Phone Isaiah Bradley Primary Care Provider [phone] Allergies No known active allergies Medications benazepril (LOTENSIN) 40 MG tablet TAKE 1 TABLET BY MOUTH EVERY DAY 90 tablet 1 1 Active labetalol (NORMODYNE) 200 MG tablet TAKE 3 TABLETS (600 MG TOTAL) BY MOUTH 3 (THREE) TIMES A DAY 810 tablet 1 1 Active Additional Information Patient taking differently: 300 mgOral 3 times daily, Reported on 03/06/2023 glipiZIDE (GLUCOTROL) 5 MG tablet Take 5 mg by mouth 1 (one) time each day 2 Active metFORMIN (GLUCOPHAGE) 1000 MG tablet Take 1,000 mg by mouth in the morning and 1,000 mg in the evening. 2 Active atorvastatin (LIPITOR) 80 MG tablet Take 80 mg by mouth 1 (one) time each day Active levETIRAcetam (KEPPRA) 500 MG tablet Take 500 mg by mouth in the morning and 500 mg in the evening. Active Aspirin Buf,AlHyd-MgHyd -CaCar, (ASPIRIN AD/ANTACID PO) Take by mouth A ctive hydrALAZINE 100 MG tablet Take 100 mg by mouth in the morning and 100 mg in the evening. Active valsartan (DIOVAN) 160 MG tablet Take 160 mg by mouth 1 (one) time each day Active Active Problems Problem Noted Date Diagnosed Date Chronic kidney disease, stage 2 (mild) 3 Chronic kidney disease, stage 2 (mild) 3 Dysphagia following cerebral infarction 12/20/19 23 03/06/2023 Stage 3 pressure ulcer of sacral region 11/29/19 23 03/06/2023 Stage 3 chronic kidney disease 11/13/2022 1 Diastolic congestive heart failure 11/12/2022 03/06/2023 Anemia 11/12/2022 03/06/2023 Abnormal posture 11/12/2022 03/06/2023 Generalized muscle weakness 11/12/202202/18 Hemiplegia and hemiparesis f ollowing cerebral infarction affecting right dominant side 11/12/2022 03/06/2023 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 03/06/2023 Other lack of coordination 11/12/202203/06 Presence of other specified functional implant 0 11/12/2022 03/06/2023 Elevation of levels of liver transaminase levels 11/11/2022 03/06/2023 Cerebral infarction 11/11/2022 03/06/2023 Hemiplegia affecting right dominant side 023 03/06/2023 Pleural effusion 11/11/2022 03/06/2023 Hyperlipidemia 11/11/2022 03/06/2023 Nonrheumatic aortic valve stenosis 11/11/2022 03/06/2023 Metabolic encephalopathy 11/11/2022 023 Pain in right knee 11/11/2022 03/06/2023 Type 2 diabetes mellitus without complication 03/06/2023 Hypertension 08/02/2021 Edema 08/01/2021 Proteinuria 08/01/2021 Renal disorder due to type 2 diabetes mellitus 0 08/01/2021 Diabetes mellitus 01/15/2013 Essential hypertension 01/15/2013 Vitamin D deficiency 01/15/2013 Resolved Problems Problem Noted Date Diagnosed Date Resolved Date Dyslipidemia 05/19/2013 08/01/2021 Low back pain 04/04/2013 08/01/2021 Multinodular goiter 01/16/2013 08/02/19 22 Screening for unspecified malignant neoplasms 01/17/20 13 08/01/2021 Arthritis 01/15/2013 08/01/2021 Immunizations Name Administration Dates Next Due Nethub SARS-COV-2 09/14/2021 Pfizer SARS-COV-2 03/27/2022,10/09/2020,09/19/19 21 Family History Medical History Relation Comments Diabetes Father Cancer Mother Relation Status Comments Father Mother Social History Tobacco Use Types Packs/Day Years Used Date Smoking Tobacco: Never Smokeless Tobacco: Never Tobacco Cessation:Counseling Given: No Alcohol Use Standard Drinks/Week Comments No 0 (1 standard drink = 0.6 oz pur e alcohol) Comments Unknown Sex and Gender Information Value Date Recorded Sex Assigned at Not on file Legal Sex Female 5:01 PM EST Gender Identity Not on file Sexual Orientation Not on file Last Filed Vital Signs Vital Sign Reading Time Taken Comments Blood Pressure 113/59 03/06/2023 2:06 PM EDT Pulse 62 03/06/2023 2:06 PM EDT Temperature - - Respiratory Rate - - Oxygen Saturation 98% 03/06/2023 2:06 PM EDT Inhaled Oxygen Concentration - - Weight 55.3 kg (122 lb) 03/06/2023 2:06 PM EDT Height 162.6 cm (5' 4 ) 09/11/2019 12:00 PM EDT Body Mass Index 20.94 09/11/2019 12:00 PM EDT Plan of Treatment Health Maintenance Due Date Last Done Comments Pneumococcal Vaccine: 65+ Years (1 of 2 - PCV) 1951 Diabetes: Ophthalmology Exam 06/18/2020 Diabetes: Pedal Pulse Checked 06/18/2020 Diabetes: Sensory Foot Exam 06/18/2020 Diabetes: Visual Foot Exam 06/18/2020 Influenza Vaccine (#1) 2024 Diabetes: Hemoglobin A1C 08/20/2024 025, 09/05/2023, 11/12/2020, Additional history exists Hepatitis B Vaccine Aged Out No longe r eligible based on patient's age to complete this topic Procedures Procedure Name Priority Date/Time Associated Diagnosis Comments EXT RESULT ENTRY Routine 11/12/2020 from Last 3 Months or Most Recently Relevant to Health Maintenance Results * (ABNORMAL) EXT RESULT ENTRY (11/12/2020) Sodium 143 137 - 147 Potassium 3.5 3.4 - 5.5 Chloride 107 99 - 108 Bicarbonate (CO2) 31(A) 22 - 30 mmol/L Anion Gap 5 <=30 MMOL/L Glucose 130 60 - 200 BUN 19 4 - 21 mg/dL Creatinine 0.92 0.50 - 1.10 mg/dL Calcium 9.2 8.7 - 10.7 mg/dL eGFR Non-Afr Marshallese 60 Hemoglobin A1C 7.6(A) 4.0 - 6.0 Triglycerides 75 40 - 160 Cholesterol 218(A) 0 - 200 HDL 75(A) 35 - 70 MG/DL LDL Calculated 128 0 - 160 mg/dL 11/12/2020 Historical Provider LAB BLOOD ORDERABLES Dorothea l Result from Last 3 Months or Most Recently Relevant to Health Maintenance [place] Care Teams Industrial Retrofit Designer Relationship Specialty Start Date End Date Isaiah Bradley [address] [place] [id number] PCP - General Internal Medicine 08/02/21
--- OUTSIDE RECORDS SUMMARY | 2024-07-23 17:34 | XMS_ITS | Encounter Summary ---
Author Organization [facility] Address [address] [place] [address] Care Team Providers Care Rehabilitation Program Manager Name Role Phone Unavailable Primary Care Provider Unavailabl e Encounter Details Date Type Department Care Team (Late st Contact Info) Description 02/06/2020 Pharmacist Visit [facility] [address] [place] [id number] Katia Thapa, JAC [address] [place] [address] Tooth infection (Primary Dx); Gingival swelling Social History Tobacco Use Types Packs/Day Years Used Date Smoking Tobacco: Never Smokeless Tobacco: Never Alcohol Use Standard Drinks/Week Comments No 0 (1 standard drink = 0.6 oz pur e alcohol) Social Connections Answer Date Recorded Social Connections and Isolation 0 02/04/2020 Financial Resource Strain Answer Date R ecorded Financial Resource Strain 0 2019 Stress Answer Date Recorded Stress 0 02/04/2020 Physical Activity Answer Date Recorded Physical Activity 0 02/04/2020 Food Insecurity Answer Date Recorded Food 0 02/04/2020 Transportation Needs Answer Date Record ed Transportation 0 02/04/2020 Housing Stability Answer Date Recorded Housing 0 02/04/2020 Safety and Environment Answer Date Melo rded Safety 0 02/04/2020 Utilities Answer Date Recorded Utilities 0 02/04/2020 Employment Answer Date Recorded Employment 0 02/04/2020 Comments No Sex and Gender Information Value Date Recorded Sex Assigned at Not on file Legal Sex Female 11:36 AM PDT Gender Identity Not on file Sexual Orientation Not on file COVID-19 Exposure Response Date Recorded In the last month, have you been in contact with someone who was confirmed or suspected to have Coronavirus / COVID-19? No / Unsure 02/04/2020 9:13 AM PDT documented as of this encounter Plan of Treatment Not on file documented as of this encounter Visit Diagnoses Diagnosis Tooth infection- Primary Acute apical periodontitis of pulpal origin Gingival swelling Swelling, mass, or lump in head and neck documented in this encounter
--- OUTSIDE RECORDS SUMMARY | 2024-07-23 17:34 | XMS_ITS | Encounter Summary ---
Author Organization [facility] Address [address] [place] [address] Care Team Providers Care Corporate Legal Secretary Name Role Phone Isaiah Harley MD Primary Care Provider [phone] Reason for Referral * Consultation (Routine) - Authorized Specialty Diagnoses / Procedures Referred By Contact Referred To Contact Occupational Therapy Diagnoses Hemiparesis, right (CMS/HCC) Isaiah Harley MD [address] [place] [phone] Phone: tel: fax: [facility] [address] [place] [address], Floor [address] [place], [place] Referral ID Status Reason Start Date Expiration Date Visits Requested Visits Authorized [id number] Authorized Specialty Services Required 06/24/2024 06/24/2025 1 1 Reason for Visit * Reason Onset Date Comments Referral 06/23/2024 Encounter Details Date Type Department Care Team (Late st Contact Info) Description 06/23/2024 Telephone [facility] [address] [place] [address] Isaiah Harley MD [address] [place] [phone] Referral Social History Tobacco Use Types Packs/Day Years [...] for your loved ones. For example, children's book author or elderly care for an older adult? [...] on file documented as of this encounter Progress Notes * Gloria Trinh MA - 06/25/2024 3:52 PM EST Spoke to meme Broderick ( VR) and relayed message. He had no questions at this time. * George Marin - 06/25/2024 12:17 PM EST Pt returning call * Fermin Castillo - 06/24/2024 2:47 PM EST Pt Son Davie calling back. Pls call [phone] * Trisha Dobbins MA - 06/24/2024 10:14 AM EST Lmtcb. Please transfer call to ext : [phone] thanks . MATTHEW RMA * Isaiah Harley MD - 06/24/2024 6:39 AM EST Referral to OT signed. * Pinky Zambrano RN - 06/23/2024 12:14 PM EST Okay to wait until PCP's returns to the office tomorrow Last appt 05/26/24 with PCP * Abiola Vargas - 06/23/2024 11:14 AM EST Referral Request: What insurance does the patient have today? Medicare and medicaid Referrals cannot be processed if the insurance is not accurate. If the insurance listed above in red is NO BILLING INFORMATION FOUND FOR THIS ENCOUTNER The patients correct insurance must be obtained and registered in [facility] or their referral can not be processed. Is this a retro request? no. If yes for what date of service do you need the retro referral? not applicable Who is calling to request this referral? Davie hinton If the caller is not the patient, what is their name? Her son Ask the patient WHO referred them to this specialty: Patient saw at [facility] for the problem and was told if symptoms did not resolve or worsen they would refer them to this specialty FIRST and LAST NAME [facility] SPECIALIST [facility] What specialty is this? occupational therapy DIAGNOSIS Patient is being seen for (Not a body part or a procedure): stroke. Motor function and help with daily tasks Have you seen this SPECIALIST for this PROBLEM/DX before? If YES, when? Yes. Last fall Have you checked REVIEW or the APPT DESK to see if this referral has already been done or has visits left? yes Is this visit: Follow Up Address of Specialist: [address] [place] Phone # of Specialist: [phone] Fax #: (if applicable): [phone] Does patient have an appointment scheduled?: no Date of appointment- (including a retro-request): Is this appointment related to: Not MVA, worker compensation, or surgery related documented in this encounter Plan of Treatment Upcoming Encounters Date Type Department Care Team (Late st Contact Info) Description 08/01/2024 10:30 AM EDT Office Visit Internal Medicine - [address] [phone] Isaiah Harley MD [address] [place] [phone] 10/07/2024 10:30 AM EDT Office Visit Orthopedic Surgery - [place] [address] [place] [address] [address] [place] [address] Andreas Smith DPM [address] [facility] [address] [place] [address] Scheduled Referrals Name Type Priority Associated Diagnoses Order Schedule Ambulatory referral to Occupational Therapy Outpatient Referral Routine Hemiparesis, right (CMS/HCC) 1 Occurrences starting 06/24/2024 until 06/23/2025 documented as of this encounter Visit Diagnoses Diagnosis Hemiparesis, right (CMS/HCC)- Primary Unspecified hemiplegia affecting unspecified side documented in this encounter Additional Health Concerns Assessment Noted Time PHQ-9 Depression Total Score: 0 05/05/20 24 10:44 AM EST documented as of this encounter Care Teams Corporate Legal Secretary Relationship Specialty Start Date End Date Isaiah Harley MD [address] [place] [id number] PCP - General Internal Medicine 05/03/20 documented as of this encounter
--- OUTSIDE RECORDS SUMMARY | 2024-07-23 17:34 | XMS_ITS | Clinical Summary ---
Author Organization [address] Address [address] [place] [phone] Phone Care Team Providers Care Dog Food Dough Mixer Name Role Phone Isaiah Harley MD Primary Care Provider [phone] Allergies No known active allergies Medications levETIRAcetam (KEPPRA) 500 mg tablet Take 1 tablet (500 mg total) by mouth 2 (two) times a day. 07/30/19 24 Active atorvastatin (LIPITOR) 80 mg tablet Take 1 tablet (80 mg total) by mouth 1 (one) time each day. 08/25/19 22 Active amLODIPine (NORVASC) 10 mg tablet Take 1 tablet (10 mg total) by mouth 1 (one) time each day. 05/24/19 24 Active valsartan (DIOVAN) 160 mg tablet Take 1 tablet (160 mg total) by mouth 1 (one) time each day. 10/30/19 23 Active protectives, O.U. (SKIN PROTECTANTS, MISC. TOP) Apply 1 Film topically daily. 03/07/20 24 Active nutren 2.0 liquid Take 1 Each by mouth 2 times daily as needed (as needed for nutrition). 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), 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] CKD (chronic kidney disease) [N18.9] History of CVA with residual deficit [I69.30] Hemiparesis, right (HCC) [G81.91] Aphasia [R47.01] CHF (congestive heart failure) (HCC) [I50.9] Epileptic disorder (HCC) [G40.909] History of NC (myocardial infarction) [I25.2] 06/11/19 24 Active incontinence pad, liner, disp pad Bed Liners #240 with 11 refills Indefinite Use Dx: Incontinence [R32] DM (diabetes mellitus), 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 Active hydrALAZINE (APRESOLINE) 100 mg tabletIndication s:Essential (primary) hypertension TAKE 1 TABLET BY MOUTH THREE TIMES A DAY 270 tablet 1 05/23/19 25 Active spironolactone (ALDACTONE) 50 mg tablet Take 1.5 tablets (75 mg total) by mouth 1 (one) time each day. 05/26/19 25 Active aspirin-dipyrida mole (AGGRENOX) 25-200 mg per 12 hr capsule Take 1 capsule by mouth 2 (two) times a day. 180 capsule 1 06/06/19 25 Active Active Problems Problem Noted Date Diagnosed Date Non-proliferative diabetic retinopathy, mild, deven th eyes 09/13/2023 Overview (03/31/2024): Dr. Gamez Type 2 diabetes mellitus with eye manifestations 09/13/2023 Adrenal hyperplasia 09/05/2023 Assessment & Plan (05/05/2024 10:51 AM EST): She is scheduled to see with her secretarial stenographer for adrenal hyperplasia and multinodular goiter. High plasma von Willebrand factor (vWF) 09/05/19 24 Chronic kidney disease, stage 2 (mild) 3 History of NC (myocardial infarction) 02/08/2023 Overview (01/03/2024): 2/2 hemorrhagic shock 10/2022 Epileptic disorder 02/08/2023 Overview (03/31/2024): EEG with epileptiform changes after CVA 08/2021. Keppra 500 mg bid per [facility] neurology lifelong Dysphagia following cerebral infarction 12/20/19 23 Pressure ulcer of sacral region, stage 3 023 Stage 3 chronic kidney disease 11/13/2022 Abnormal posture 11/12/2022 Anemia 11/12/2022 Diastolic congestive heart failure 11/12/2022 Generalized muscle weakness 11/12/2022 Hemiplegia and hemiparesis f ollowing cerebral infarction affecting right dominant side 11/12/2022 Assessment & Plan (05/05/2024 10:51 AM EST): She followed up with her neurologist, . She is currently on Aggrenox and atorvastatin. She is also on Keppra for seizures. No recent seizure episodes. 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 Diagnostic coronary angiogram in the past did show 50% RCA lesion. Currently she denies any clinical symptoms of heart failure and appears euvolemic on physical examination. No changes to present medical therapies. Continue with medications as prescribed. Patient advised to seek emergency medical attention by calling 911 if they were to develop severe dyspnea, chest pain that did not resolve with rest or nitroglycerin, or if they were to faint. I've asked the patient to call if they develop worsening symptoms of heart failure such as increased shortness of breath, new or worsening cough, increased swelling in the legs or ankles, or weight gain of more than 2 pounds in one day or 4 pounds in one week. Aphasia 10/06/2021 CHF (congestive heart failure) 10/06/2021 CKD (chronic kidney disease) 10/06/2021 Hemiparesis, right 10/06/2021 History of CVA with residual deficit 10/06/2021 Overview (01/03/2024): 08/2021; Aphasia, right hemiparesis Multiple acute and subacute bilateral anterior and posterior embolic strokes Last Assessment & Plan: Patient is off of Eliquis now even though there was an indication that this was an embolic stroke in the past. She is off the Eliquis because of the hemothorax. Which was spontaneous from what I can tell. She is on Aggrenox now which unfortunately is probably not therapeutic enough to stop a stroke. This was a decision made during her last hospitalization. Insomnia 10/06/2021 Edema 08/01/2021 Diabetic nephropathy associa jason with type 2 diabetes mellitus 08/01/2021 Assessment & Plan (05/05/2024 10:51 AM EST): Will monitor A1c levels. Diabetic diet discussed. She will continue follow-up with nephrology for her CKD. Orders: Hemoglobin A1c; Future Proteinuria 08/01/2021 Hyperlipidemia 07/21/2021 Overview (01/03/2024): Last Assessment & Plan: Last LDL cholesterol was 15. This is at goal. Continue with atorvastatin 80 mg once a day as prescribed. Assessment & Plan (05/05/2024 10:51 AM EST): Will monitor lipid panel, AST, ALT. Continue atorvastatin 80 mg daily. Orders: Aspartate aminotransferase; Future Alanine aminotransferase; Future Lipid panel with reflex to direct LDL; Future Carpal tunnel syndrome, bilateral 05/03/2020 Goiter 05/03/2020 Microalbuminuria 05/03/2020 Overview (01/03/2024): [facility] Stasis dermatitis of both legs 05/03/2020 Pain in right knee 11/17/2019 Nonrheumatic aortic valve stenosis 03/20/2017 Overview (01/03/2024): Severe, ? TAVR not a candidate for open surgery Last Assessment & Plan: Patient has history of severe aortic stenosis and TAVR has been discussed in the past and it was felt that she was not a candidate for TAVR at that time. Patient is wheelchair-bound and suffered a significant stroke. She is at home with her family and is not active or complaining of any symptoms of heart failure. Assessment & Plan (05/05/2024 10:51 AM EST): She is seeing [facility] cardiology and is scheduled to see them in July for her aortic stenosis. Polyp of colon 03/20/2017 Dyslipidemia 05/19/2013 Low back pain 04/04/2013 Multinodular goiter 01/16/2013 Assessment & Plan (05/05/2024 10:51 AM EST): We will follow-up on thyroid levels. Continue follow-up with endocrinology. Orders: Thyroid stimulating hormone with reflex to free t4 and free t3; Future Arthritis 01/15/2013 Essential hypertension 01/15/2013 Overview (01/03/2024): Last Assessment & Plan: Blood pressure under excellent control with a reading today of 112/70. Continue with amlodipine, valsartan, hydralazine and labetalol as prescribed. Assessment & Plan (07/01/2024 11:21 AM EST): Blood pressure stable today. She will follow low-sodium diet. Continue regimen of amlodipine, hydralazine, labetalol, spironolactone, valsartan. Potassium levels are normal now. She will follow-up with nephrology as well. Assessment & Plan (05/05/2024 10:51 AM EST): Her blood pressure is not controlled at all but patient has not taking any of her blood pressure medication today. Patient's son will monitor blood pressure daily as he does have let me know what her blood pressure readings at home. In the meantime, she will continue her current regimen of amlodipine 10 mg daily, hydralazine 100 mg 3 times a day, labetalol 300 mg 3 times a day, spironolactone 50 mg daily and valsartan 160 mg daily. If blood pressure still elevated in 1 week, he will let her cosmetic sales advisor know but we could increase her spironolactone dose to 100 mg daily or valsartan dose to 320 mg daily. Will monitor patient's electrolytes. Orders: Basic metabolic panel; Future Diabetes mellitus 01/15/2013 Type 2 diabetes mellitus without complication Vitamin D deficiency 01/15/2013 Encounters Date Type Department Care Team Description 07/[facility]2024 [facility] [place] [phone] Isaiah Harley MD provider call back (Copy of referral) 07/01/2024 10:30 AM EST [facility] [place] [phone] Isaiah Harley MD Essential hypertension (Primary Dx) 06/23/2024 [facility] [address] [place], [place] [address] [phone] Isaiah Harley MD Referral 05/26/2024 9:45 AM EST [facility] [address] [facility] [place] [phone] Isaiah Harley MD Hypertension, unspecified type (Primary Dx); Hypokalemia 05/16/2024 Telephone Internal Medicine - [address] [phone] Isaiah Harley MD DME Request ([employer] ) 05/07/2024 10:15 AM EST Office Visit Orthopedic Surgery - [place] [address] [facility] [address] [place] [phone] Andreas Smith DPM Primary osteoarthritis of both feet (Primary Dx); Foot pain, bilateral; Dermatophytosis of nail; Pain in toe of right foot; Pain in toe of left foot; Type II diabetes mellitus with peripheral circulatory disorder (CMS/HCC) 05/05/2024 10:00 AM EST Clinical Support Aviation Technician[address] [phone] Medicare annual wellness visit, subsequent (Primary Dx) 05/05/2024 9:45 AM EST Office Visit Internal Medicine [address] [phone] Isaiah Harley MD Essential hypertension (Primary Dx); Hyperlipidemia, unspecified hyperlipidemia type; Hemiplegia and hemiparesis following cerebral infarction affecting right dominant side (CMS/HCC); Adrenal hyperplasia (CMS/HCC); Multinodular goiter; Nonrheumatic aortic valve stenosis; Diabetic nephropathy associated with type 2 diabetes mellitus ([facility]/HCC) 05/01/2024 Telephone Aviation Technician [address] [phone] Abiola Jang, RN Medicare Annual Wellness Visit Subsequent from Last 3 Months Immunizations Name Administration Dates Next Due [employer] SARS-CoV-2 COVID -19, vector-nr, [id number], preservative free 09/14/2021,09/11/2021 Pfizer (ages 12 & older) Bivalent, COVID-19 0 11/2021 Pfizer SARS-CoV-2 COVID-19, mRNA, LNP-S, preservative free 10/09/2020,09/18/2020 Medical History Medical History Date Comments Polyp of colon 03/20/2017 DX:Polyp of colo n Obesity (BMI 30-39.9) 03/20/2017 DX:Obesity (BMI 30-39.9) DM (diabetes mellitus), type 2 with renal complications (CMS/HCC) 03/20/2017 DX:DM (diabetes mellitus ), type 2 with renal complications (HCC) DM (diabetes mellitus), type 2 with neurological complications (CMS/HCC) 05/03/2020 DX:DM (diabetes m ellitus), type 2 with neurological complications (HCC) Carpal tunnel syndrome, bilateral 05/03/2020 DX:Carpal tunnel syndrome, bilateral Goiter 05/03/2020 DX:Goiter Stasis dermatitis of both legs 05/03/2020 D X:Stasis dermatitis of both legs Epileptic disorder (CMS/HCC) 02/08/2023 DX: Epileptic disorder ([facility]); COMMENT: EEG with epileptiform changes after CVA 08/2021. Keppra 500 mg bid per [facility] neurology lifelong Stroke ([facility]) DX:Stroke (HCC) Adrenal hyperplasia ([facility]/HCC) 09/05/2023 DX :Adrenal hyperplasia (HCC) Non-proliferative diabetic retinopathy, mild, both eyes (CMS/HCC) 09/13/2023 DX:Non-proliferative diabeti c retinopathy, mild, both eyes ([facility]); COMMENT: Dr. Gamez Type 2 diabetes mellitus wit h eye manifestations ([facility]) 09/13/2023 DX: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[facility]) Family History Medical History Relation Name Comments No Known Problems Brother x2 1deceased No Known Problems Father No Known Problems Mother Hypertension Son Relation Name Status Comments Brother x2 1deceased Alive Father Mother Son Alive Social History Tobacco Use Types Packs/Day Years [...] your loved ones. For example, child care development specialist or elderly care for an older adult? [...] on file Sexual Orientation Not on file Obstetrics History Last Filed Vital Signs Vital Sign Reading Time Taken Comments Blood Pressure 136/54 07/01/2024 10:35 AM EST Pulse 56 07/01/2024 10:35 AM EST Temperature - - Respiratory Rate - - Oxygen Saturation - - Inhaled Oxygen Concentration - - Weight 76.7 kg (169 lb) 07/01/2024 10:35 AM EST Height 170.2 cm (5' 7 ) 07/01/2024 10:35 AM EST Body Mass Index 26.47 07/01/2024 10:35 AM EST Plan of Treatment Upcoming Encounters Date Type Department Care Team (Late st Contact Info) Description 08/01/2024 10:30 AM EDT Office Visit Internal Medicine - [facility] [address] [place] [phone] Isaiah Harley MD [address] [place] [phone] 10/07/2024 10:30 AM EDT Office Visit Orthopedic Surgery - [place] [address] [phone] Andreas Smith, DPM [address] [address] Health Maintenance Due Date Last Done Comments Diabetes: Annual Foot Exam 1955 DTaP,Tdap,and Td Vaccines (1 - Tdap) 1965 Pneumococcal Vaccine: 50+ Years (1 of 2 - PCV) 1965 Zoster Vaccines (1 of 2) 1996 RSV Immunization Patients 60+ Years Old (1 - 1-dose 75+ series) 2021 Diabetes: Annual Urine Albumin-Creatinine Ratio (uACR) 05/05/2022 Colorectal Cancer Screening: Colonoscopy 12/03/2023 12/02/2013 COVID-19 Vaccine ( season) 2024 03/27/2022, 09/14/2021, 09/11/2021, Additional history exists Influenza Vaccine (#1) 2024 Diabetes: Annual Retina Eye Exam 09/11/2024 09/12/2023 Diabetes: Blood Sugar Control Test (HGBA1C) 11/19/2024 2024, 09/05/2023 Depression Screening 05/05/2025 05/05/2024, 03/01/20 Falls Risk Assessment 05/05/2025 05/05/2024 Medicare Annual Wellness Visit 05/05/2025 05/05/2024 Social Influencers of Health Screening 05/05/2025 05/05/2024 Diabetes: Annual GFR (Glomerular Filtration Rate) 2025 2024, 09/05/2023 Hypertension/CHF/CAD Annual BMP Blood Test 2025 2024, 09/05/2023 Osteoporosis Screening (Bone Density Screening) 05/17/2027 05/17/2017 Cholesterol Screening (Lipid Panel) 2029 2024, 02/13/2023 Hepatitis C Screening Completed 02/13/2023 HIB Vaccines Aged Out No longer eligi ble based on patient's age to complete this topic HPV Vaccines Aged Out No longer eligi ble based on patient's age to complete this topic Hepatitis A Vaccines Aged Out No long er eligible based on patient's age to complete this topic Hepatitis B Vaccines Aged Out No long er eligible based on patient's age to complete this topic IPV Vaccines Aged Out No longer eligi ble based on patient's age to complete this topic MMR Vaccines Aged Out No longer eligi ble based on patient's age to complete this topic Meningococcal ACWY Vaccine Aged Out N o longer eligible based on patient's age to complete this topic Meningococcal B Vacine Aged Out No lo nger eligible based on patient's age to complete this topic RSV Immunization Patients Under 20 months Aged Out No longer eligible based on patient's age to complete this topic Varicella Vaccines Aged Out No longer eligible based on patient's age to complete this topic Procedures Procedure Name Priority Date/Time Associated Diagnosis Comments POTASSIUM Routine 06/18/2024 11:13 AM EST Hypokalemia TRIIODOTHYRONINE FREE Routine 2024 10:49 AM EST Multinodular goiter FREE THYROXINE WITH REFLEX TO FREE TRIIODOTHYRONINE Routine 2024 10:49 AM EST Multinodular goiter HEMOGLOBIN A1C Routine 2024 10:49 AM EST Diabetic nephropathy associated with type 2 diabetes mellitus (CMS/HCC) THYROID STIMULATING HORMONE WITH REFLEX TO FREE T4 AND FREE T3 Routine 2024 10:49 AM EST Multinodular goiter BASIC METABOLIC PANEL Routine 2024 10:49 AM EST Essential hypertension ASPARTATE AMINOTRANSFERASE Routine 2024 10:49 AM EST Hyperlipidemia, unspecified hyperlipidemia type ALANINE AMINOTRANSFERASE Routine 2024 10:49 AM EST Hyperlipidemia, unspecified hyperlipidemia type LIPID PANEL WITH REFLEX TO DIRECT LDL Routine 2024 10:49 AM EST Hyperlipidemia, unspecified hyperlipidemia type XR FOOT 3+ VIEWS BILAT Routine 10:32 AM EST Foot pain, bilateral DIABETES EYE EXAM Routine 09/12/2023 DEPRESSION SCREENING Routine 03/01/2023 HEPATITIS C SCREENING Routine 02/13/2023 DXA BONE DENSITY STUDY 1+ SITS AXIAL SKEL Routine 05/17/2017 9:20 AM EST Asymptomatic menopausal state COLONOSCOPY Routine 12/02/2013 from Last 3 Months or Most Recently Relevant to Health Maintenance Results * Potassium (06/18/2024 11:13 AM EST) Potassium 3.8 3.5 - 5.5 mmol/L LAB CHEMISTRY METHOD 06/18/2024 2:26 PM EST [facility] Blood Venous blood specimen / Unknown Venipuncture / Unknown 06/18/2024 11:13 AM EST 06/18/2024 11:13 AM EST us Isaiah Harley MD LAB BLOOD ORDERABLES Dorothea l Result [facility] [address] [place] [address], [place] [phone] * (ABNORMAL) Thyroid stimulating hormone with reflex to free t4 and free t3 (2024 10:49 AM EST) Pathologist [facility] TSH 4.46(H) 0.40 - 4.00 mcIU/mL LAB CHEMISTRY METHOD 2024 3:05 PM EST [facility] Blood Venous blood specimen / Unknown Venipuncture / Unknown 2024 10:49 AM EST 2024 10:49 AM EST Isaiah Harley MD LAB BLOOD ORDERABLES Dorothea l Result Performing Organization Address City/[facility]/ZIP Co de Phone Number [facility] [address] [place] [address], [place] [phone] * Free thyroxine with reflex to free triiodothyronine (2024 10:49 AM EST) [facility] Free T4 1.13 0.70 - 1.80 ng/dL LAB CHEMISTRY METHOD 2024 3:31 PM EST [facility] Blood Venous blood specimen / Unknown Venipuncture / Unknown 2024 10:49 AM EST 2024 10:49 AM EST Isaiah Harley MD LAB BLOOD ORDERABLES Dorothea l Result [facility] [address] [place] [address], [place] [phone] * Lipid panel with reflex to direct LDL (2024 10:49 AM EST) [facility] Cholesterol 180 0 - 200 mg/dL LAB CHEMISTRY METHOD 2024 3:03 PM [facility] Triglycerides 73 0 - 150 mg/dL LAB CHEMISTRY METHOD 2024 3:03 PM [facility] HDL 65 >=40 mg/dL LAB CHEMISTRY METHOD 2024 3:03 PM [facility] LDL Calculated 100 0 - 100 mg/dL LAB CHEMISTRY METHOD 2024 3:03 PM [facility] VLDL Cholesterol Pavel 14.6 mg/dL LAB CHEMISTRY METHOD 2024 3:03 PM [facility] Non HDL Chol. (LDL+VLDL) 115 <145 mg/dL LAB CHEMISTRY METHOD 2024 3:03 PM [facility] Chol/HDL Ratio 2.8 0.0 - 4.4 LAB CHEMISTRY METHOD 2024 3:03 PM [facility] Blood Venous blood specimen / Unknown Venipuncture / Unknown 2024 10:49 AM EST 2024 10:49 AM EST Isaiah Harley MD LAB BLOOD ORDERABLES Dorothea l Result Performing Organization Address City/[facility]/ZIP Co de Phone Number [facility] [address] [place] [address], [place] [phone] * Triiodothyronine free (2024 10:49 AM EST) Pathologist [facility] T3, Free 250 230 - 420 pcg/dL LAB CHEMISTRY METHOD 2024 3:57 PM [facility] Blood Venous blood specimen / Unknown Venipuncture / Unknown 2024 10:49 AM EST 2024 10:49 AM EST us Isaiah Harley MD LAB BLOOD ORDERABLES Dorothea l Result [facility] [address] [place] [address], [place] [phone] * Alanine aminotransferase (2024 10:49 AM EST) ALT (SGPT) 14 10 - 60 unit/L LAB CHEMISTRY METHOD 2024 2:58 PM EST [facility] Blood Venous blood specimen / Unknown Venipuncture / Unknown 2024 10:49 AM EST 2024 10:49 AM EST Isaiah Harley MD LAB BLOOD ORDERABLES Dorothea l Result Performing Organization Address City/[facility]/ZIP Co de Phone Number [facility] [address] [place] [address], [place] [phone] * Aspartate aminotransferase (2024 10:49 AM EST) [facility] AST (SGOT) 15 10 - 42 unit/L LAB CHEMISTRY METHOD 2024 2:58 PM EST [facility] Blood Venous blood specimen / Unknown Venipuncture / Unknown 2024 10:49 AM EST 2024 10:49 AM EST Isaiah Harley MD LAB BLOOD ORDERABLES Dorothea l Result Performing Organization Address City/[facility]/ZIP Co de Phone Number [facility] [address] [place] [address], [place] [phone] * Hemoglobin A1c (2024 10:49 AM EST) [facility] Hemoglobin A1C 5.9 <6.5 % LAB CHEMISTRY METHOD 2024 9:17 PM EST [facility] Mean Bld Glu Estim. 123 mg/dL LAB CHEMISTRY METHOD 2024 9:17 PM EST [facility] Blood Venous blood specimen / Unknown Venipuncture / Unknown 2024 10:49 AM EST 2024 10:49 AM EST Isaiah Harley MD LAB BLOOD ORDERABLES Dorothea l Result [facility] [address] [place] [address], * (ABNORMAL) Basic metabolic panel (2024 10:49 AM EST) Sodium 140 133 - 145 mmol/L LAB CHEMISTRY METHOD 2024 2:58 PM [facility] Potassium 3.2(L) 3.5 - 5.5 mmol/L LAB CHEMISTRY METHOD 2024 2:58 PM [facility] Chloride 107 96 - 110 mmol/L LAB CHEMISTRY METHOD 2024 2:58 PM [facility] CO2 28 21 - 32 mmol/L LAB CHEMISTRY METHOD 2024 2:58 PM [facility] Anion Gap 5 3 - 11 LAB CHEMISTRY METHOD 2024 2:58 PM [facility] Glucose 140(H) 70 - 100 mg/dL LAB CHEMISTRY METHOD 2024 2:58 PM [facility] BUN 13 5 - 25 mg/dL LAB CHEMISTRY METHOD 2024 2:58 PM [facility] Creatinine 1.07 0.50 - 1.10 mg/dL LAB CHEMISTRY METHOD 2024 2:58 PM [facility] eGFR 53(L) >=60 mL/min/1. 73m2 LAB CHEMISTRY METHOD 2024 2:58 PM [facility] Comment:Calculation based on the??Chronic Kidney Disease Epidemiology Collaboration (CKD-EPI) equation refit??without adjustment for race. BUN/Creatinine Ratio 12.1 LAB CHEMISTRY METHOD 2024 2:58 PM [facility] Calcium 8.8 8.5 - 10.5 mg/dL LAB CHEMISTRY METHOD 2024 2:58 PM EST [facility] Blood Venous blood specimen / Unknown Venipuncture / Unknown 2024 10:49 AM EST 2024 10:49 AM EST Isaiah Harley MD LAB BLOOD ORDERABLES Dorothea l Result [facility] [address] [place] [address], * XR Foot 3+ Views bilat (05/07/2024 10:32 AM EST) Anatomical Region Laterality Modality Lower Extremities, Foot Bilateral Computed Radiography Narrative 05/07/2024 12:11 PM EST Left foot 3 views Diffuse osteoporosis osteopenia and osteoarthritis without acute findings Right ??foot 3 views Diffuse osteoporosis osteopenia and osteoarthritis without acute findings Andreas Smith DPM IMG XR PROCEDURES Final R esult * Diabetes Eye Exam (09/12/2023) [facility] Diabetes: Annual Retina Eye Exam abstracted Historical Provider HEALTH MAINTENANCE Final Result * Depression Screening (03/01/2023) [facility] Depression Screening completed Historical Provider HEALTH MAINTENANCE Final Result * Hepatitis C Screening (02/13/2023) [facility] Hepatitis C Screening negatibve Historical Provider HEALTH MAINTENANCE Final Result * DXA BONE DENSITY STUDY 1+ SITS AXIAL SKEL (05/17/2017 9:20 AM EST) Anatomical Region Laterality Modality Bone Densitometr y 03/20/2017 4:12 PM EDT Narrative 05/17/2017 2:52 PM EST BONE DENSITY ? Lumbar Spine T-score is +2.0 ?? (SD relative to 20-29 y/o adult) Z-score is +3.4 ??(SD relative to age matched peers) This is normal by criteria defined by the WHO. Left Hip T-score is -1.8 Z-score is -0.6 This is consistent with osteopenia by criteria defined by the WHO. Impression: Based on the World Health Organization criteria, Delaney Hinton should be classified as having osteopenia. This patient has a 4.4% risk of major osteoporotic fracture and a 0.7% risk of hip fracture over the next 10 years. (World Health Organization Fracture Risk Assessment) [facility] Department of Internal Medicine recommends using National Osteoporosis Foundation (NOF) guidelines in treatment decisions related to osteoporosis. NOF guidelines suggest considering treatment for postmenopausal women and men aged 50 or older presenting with the following: History of hip or vertebral fracture. T-score less than or equal to -2.5 (DXA) at the femoral neck, total hip, or spine, after appropriate evaluation to exclude secondary causes. Low bone mass (T-score between -1.0 and -2.5 at the femoral neck or spine) AND a 10-year probability of a hip fracture greater than or equal to 3% OR a 10-year probability of a major osteoporosis-related fracture greater than or equal to 20% based on the [place]-adapted WHO algorithm Please note that all treatment decisions require clinical judgment and consideration of individual patient factors, including patient preferences, co-morbidities, previous drug use, risk factors not captured in the FRAX model (e.g., frailty, falls, vitamin D deficiency, increased bone turnover, interval significant decline in bone density) and possible under- or over-estimation of fracture risk by FRAX. Procedure Note Clari Hatfield MD - 06/22/2023 BONE DENSITY Lumbar Spine T-score is +2.0 (SD relative to 20-29 y/o adult) Z-score is +3.4 (SD relative to age matched peers) This is normal by criteria defined by the WHO. Left Hip T-score is -1.8 Z-score is -0.6 This is consistent with osteopenia by criteria defined by the WHO. Impression: Based on the World Health Organization criteria, Delaney Hinton shouldbe classified as having osteopenia. This patient has a 4.4% risk of majorosteoporotic fracture and a 0.7% risk of hip fracture over the next 10years. (World Health Organization Fracture Risk Assessment) [facility] Department of Internal Medicine recommendsusing National Osteoporosis Foundation (NOF) guidelines in treatmentdecisions related to osteoporosis. NOF guidelines suggest consideringtreatment for postmenopausal women and men aged 50 or older presentingwith the following: History of hip or vertebral fracture. T-score less than or equal to -2.5 (DXA) at the femoral neck, total hip,or spine, after appropriate evaluation to exclude secondary causes. Low bone mass (T-score between -1.0 and -2.5 at the femoral neck or spine)AND a 10-year probability of a hip fracture greater than or equal to 3% ORa 10-year probability of a major osteoporosis-related fracture greaterthan or equal to 20% based on the [place]-adapted WHO algorithm Please note that all treatment decisions require clinical judgment andconsideration of individual patient factors, including patientpreferences, co-morbidities, previous drug use, risk factors not capturedin the FRAX model (e.g., frailty, falls, vitamin D deficiency, increasedbone turnover, interval significant decline in bone density) and possibleunder- or over-estimation of fracture risk by FRAX. Simona Vega MD IM DXA PROCEDURES Final Re sult * Colonoscopy (12/02/2013) Colonoscopy abnormal Anatomical Region Laterality Modality Other Historical Provider HEALTH MAINTENANCE Final Result from Last 3 Months or Most Recently Relevant to Health Maintenance Insurance [place] - [place] MEDIC[place] Advance Directives Documents on File Type Date Recorded Patient Hyperion Developer Expl anation Health Care Decision (hx) 09/14/2021 AD COFFMAN DIRECTIVE Health Care Decision (hx) 09/14/2021 AD COFFMAN DIRECTIVE Health Care Decision (hx) 09/14/2021 AD COFFMAN DIRECTIVE Health Care Decision (hx) 09/14/2021 AD COFFMAN DIRECTIVE Health Care Decision (hx) 09/14/2021 AD COFFMAN DIRECTIVE Health Care Decision (hx) 09/14/2021 AD COFFMAN DIRECTIVE Health Care Decision (hx) 08/19/2021 AD COFFMAN DIRECTIVE Health Care Decision (hx) 08/19/2021 AD COFFMAN DIRECTIVE Health Care Decision (hx) 08/19/2021 AD COFFMAN DIRECTIVE Health Care Decision (hx) 08/19/2021 AD COFFMAN DIRECTIVE Health Care Decision (hx) 08/19/2021 AD COFFMAN DIRECTIVE Health Care Decision (hx) 08/19/2021 AD COFFMAN DIRECTIVE Health Care Decision (hx) 08/19/2021 AD COFFMAN DIRECTIVE Health Care Decision (hx) 08/19/2021 AD COFFMAN DIRECTIVE Care Teams Dog Food Dough Mixer Relationship Specialty Start Date End Date Isaiah Harley MD [address] [place] [id number] PCP - General Internal Medicine 05/03/20
--- OUTSIDE RECORDS SUMMARY | 2024-07-23 17:34 | XMS_ITS | Encounter Summary ---
Author Organization [facility] Address [address] [place] [address] Care Team Providers Care Oil Operator Name Role Phone Isaiah Harley MD Primary Care Provider [phone] Reason for Visit * Reason Onset Date Comments provider call back 07/15/2024 Copy of refer ral Encounter Details Date Type Department Care Team (Late st Contact Info) Description 07/15/2024 Telephone Internal Medicine - [facility] [address] [place] [address] Isaiah Harley MD [address] [place] [phone] provider call back (Copy of referral) Social History Tobacco Use Types Packs/Day Years [...] for your loved ones. For example, child welfare social worker or elderly care for an older [...] as of this encounter Progress Notes * Gabriela Padilla MA - 07/15/2024 1:28 PM EST Order printed and placed in pt pepper picker. Son informed. * Rubina Kaur - 07/15/2024 11:15 AM EST Pt's son requesting a copy of referral for OT for pt. He would like to pick it up and requesting a call when it's ready for pepper picker. Any questions, he can be reached at [phone]. Thank you. documented in this encounter Plan of Treatment Upcoming Encounters Date Type Department Care Team (Late st Contact Info) Description 08/01/2024 10:30 AM EDT Office Visit Internal Medicine - [address] [phone] Isaiah Harley MD [address] [place] [address] 10/07/2024 10:30 AM EDT Office Visit Orthopedic Surgery - [place] [address] [phone] Andreas Smith DPM [address] [address] documented as of this encounter Visit Diagnoses Not on filedocumented in this encounter Additional Health Concerns Assessment Noted Time PHQ-9 Depression Total Score: 0 05/05/20 24 10:44 AM EST documented as of this encounter Care Teams Oil Operator Relationship Specialty Start Date End Date Isaiah Harley MD [address] [place] [address] PCP - General Internal Medicine 05/03/20 documented as of this encounter
--- OUTSIDE RECORDS SUMMARY | 2024-07-23 17:34 | XMS_ITS | Encounter Summary ---
Author Organization [facility] Address [address] [place] [address] Care Team Providers Care Sheet Rock Layer Name Role Phone Isaiah Harley MD Primary Care Provider [phone] Reason for Visit * Reason Comments Follow-up Encounter Details Date Type Department Care Team (Late st Contact Info) Description 07/01/2024 10:30 AM EST [facility] [address] [place] [phone] Isaiah Harley MD [address] [place] [phone] Essential hypertension (Primary Dx) Social History Tobacco Use Types Packs/Day Years [...] care for your loved ones. For example, special needs child caregiver or elderly care for an older adult? [...] Mass Index 26.47 07/01/2024 10:35 AM EST documented in this encounter Progress Notes * Isaiah Harley MD - 07/01/2024 10:30 AM ESTAssociated Problem(s): Essential hypertension Blood pressure stable today. She will follow low-sodium diet. Continue regimen of amlodipine, hydralazine, labetalol, spironolactone, valsartan. Potassium levels are normal now. She will follow-up with nephrology as well. * Isaiah Harley MD - 07/01/2024 10:30 AM EST CHIEF COMPLAINT: Chief Complaint Patient presents with Follow-up IDENTIFIER: Delaney Hinton is a 79 y.o. old female. HPI Patient is a 79-year-old woman who presents to the office today for blood pressure follow-up. Please see my last note from 05/26/2024. She is compliant with her blood pressure regimen now. She denies any blurry vision double vision, dizziness. She has been seen by her health outreach worker on 04/29/2024 for her history of CKD, hypokalemia, hypertension, adrenal hyperplasia. Her spironolactone dose was increased to 50 mg daily due to her hypokalemia. The plan is to maximize spironolactone and eventually amlodipine if potassium permits. She is advised to follow-up with room service clerk to check her adrenal issues. She has follow-up appointments scheduled with cardiology, nephrology, neurology plan in the next few months. ROS: GENERAL: No malaise, significant weight loss or fever HEENT: No changes in hearing or vision, nose bleeds or other nasal problems RESPIRATORY: No cough, wheezing or shortness of breath CARDIOVASCULAR: No chest pain, leg swelling or palpitations GI: No abdominal discomfort, blood in stools or black stools NECK: No lumps, goiter, pain or significant neck swelling : No dysuria, frequency or incontinence MUSCULOSKELETAL: Right side hemiplegia SKIN: No lesions, rash or itching NEURO: Right-sided hemiplegia PAST MEDICAL HISTORY: Patient Active Problem List Diagnosis Date Noted Non-proliferative diabetic retinopathy, mild, both eyes (CMS/HCC) 09/13/2023 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[facility]) 09/13/2023 Adrenal hyperplasia ([facility]) 09/05/2023 High plasma von Willebrand factor (vWF) 09/05/2023 Chronic kidney disease, stage 2 (mild) 03/06/2023 History of ME (myocardial infarction) 02/08/2023 Epileptic disorder ([facility]) 02/08/2023 Dysphagia following cerebral infarction 12/19/2022 Pressure ulcer of sacral region, stage 3 ([facility]) 11/28/2022 Stage 3 chronic kidney disease ([facility]) 11/13/2022 Abnormal posture 11/12/2022 Anemia 11/12/2022 Diastolic congestive heart failure ([facility]) 11/12/2022 Generalized muscle weakness 11/12/2022 Hemiplegia and hemiparesis following cerebral infarction affecting right dominant side ([facility]) 11/12/2022 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 Other lack of coordination 11/12/2022 Presence of other specified functional implants 11/12/2022 Cerebral infarction ([facility]) 11/11/2022 Hemiplegia affecting right dominant side ([facility]) 11/11/2022 Elevation of levels of liver transaminase levels 11/11/2022 Metabolic encephalopathy 11/11/2022 Pleural effusion 11/11/2022 Nonischemic cardiomyopathy ([facility]) 03/02/2022 Aphasia 10/06/2021 CHF (congestive heart failure) ([facility]) 10/06/2021 CKD (chronic kidney disease) 10/06/2021 Hemiparesis, right ([facility]) 10/06/2021 History of CVA with residual deficit 10/06/2021 Insomnia 10/06/2021 Edema 08/01/2021 Diabetic nephropathy associated with type 2 diabetes mellitus ([facility]) 08/01/2021 Proteinuria 08/01/2021 Hyperlipidemia 07/21/2021 Carpal tunnel syndrome, bilateral 05/03/2020 Goiter 05/03/2020 Microalbuminuria 05/03/2020 Stasis dermatitis of both legs 05/03/2020 Pain in right knee 11/17/2019 Nonrheumatic aortic valve stenosis 03/20/2017 Polyp of colon 03/20/2017 Dyslipidemia 05/19/2013 Low back pain 04/04/2013 Multinodular goiter 01/16/2013 Arthritis 01/15/2013 Essential hypertension 01/15/2013 Diabetes mellitus ([facility]) 01/15/2013 Type 2 diabetes mellitus without complication ([facility]) 01/15/2013 Vitamin D deficiency 01/15/2013 No past surgical history on file. SOCIAL HISTORY: Social History Tobacco Use Smoking status: Never Smokeless tobacco: Never Substance Use Topics Alcohol use: Never FAMILY HISTORY: Family History Problem Relation Name Age of Onset No Known Problems Father No Known Problems Mother Hypertension Son No Known Problems Brother x2 1deceased Family Status Relation Name Status Father Mother Son Alive Brother x2 1deceased Alive No partnership data on file MEDICATIONS DISCONTINUED/REORDERED: There are no discontinued medications. ACTIVE MEDICATIONS: Outpatient Medications Marked as Taking for the 07/01/24 encounter (Office Visit) with Isaiah Harley MD Medication Sig Dispense Refill amLODIPine (NORVASC) 10 mg tablet Take 1 tablet (10 mg total) by mouth 1 (one) time each day. aspirin-dipyridamole (AGGRENOX) 25-200 mg per 12 hr capsule Take 1 capsule by mouth 2 (two) times aday. 180 capsule 1 atorvastatin (LIPITOR) 80 mg tablet Take 1 tablet (80 mg total) by mouth 1 (one) time each day. diaper,brief,adult, disposable (FITTED BRIEFS LARGE MISC) Large Briefs with Tabs #240/ month 11 refills Dx: Incontinence [R32] DM (diabetes mellitus), type 2 with renal complications ([facility]) [E11.29] DM (diabetes mellitus), type 2 with neurological complications ([facility]) [E11.49] CKD (chronic kidney disease) [N18.9] History of CVA with residual deficit [I69.30] Hemiparesis, right ([facility]) [G81.91] Aphasia [R47.01] CHF (congestive heart failure) ([facility]) [I50.9] Epileptic disorder ([facility]) [G40.909] History of ME (myocardial infarction) [I25.2] hydrALAZINE (APRESOLINE) 100 mg tablet TAKE 1 TABLET BY MOUTH THREE TIMES A DAY 270 tablet 1 incontinence pad, liner, disp pad Bed Liners [...] [I42.8] Epileptic disorder (HCC) [G40.909] History of ME (myocardial infarction) [I25.2] labetaloL (NORMODYNE) 300 mg tablet TAKE 1 TABLET BY MOUTH THREE TIMES A DAY levETIRAcetam (KEPPRA) 500 mg tablet Take 1 tablet (500 mg total) by mouth 2 (two) times a day. nutren 2.0 liquid Take 1 Each by mouth 2 times daily as needed (as needed for nutrition). #60 / month , 11 refills Indefinite Use Dx: I69.30, G81.91, I50.9, R47.01, E11.29, E11.49, N18.90 protectives, O.U. (SKIN PROTECTANTS, MISC. TOP) Apply 1 Film topically daily. spironolactone (ALDACTONE) 50 mg tablet Take 1.5 tablets (75 mg total) by mouth 1 (one) time each day. valsartan (DIOVAN) 160 mg tablet Take 1 tablet (160 mg total) by mouth 1 (one) time each day. wound dressings (Triad Wound Dressing) paste Apply topically. ALLERGIES: No Known Allergies PHYSICAL EXAM: Visit Vitals BP 136/54 Pulse 56 Ht 1.702 m (67 ) Wt 76.7 kg (169 lb) BMI 26.47 kg/m?? OB Status Postmenopausal Smoking Status Never BSA 1.88 m?? EYES: PERRL, conjunctiva and sclera normal NOSE/SINUS: negative MOUTH/THROAT: no erythema or exudates NECK: negative HEART: regular rate, regular rhythm and no murmur LUNG: clear to auscultation LYMPH NODES: grossly normal ABDOMEN: Bowel sounds normoactive, no bruits, soft, non-tender, without organomegaly or palpable masses EXTREMITIES: No edema bilaterally. NEURO: Awake, alert and oriented x 3 SKIN: negative Assessment & Plan Essential hypertension Blood pressure stable today. She will follow low-sodium diet. Continue regimen of amlodipine, hydralazine, labetalol, spironolactone, valsartan. Potassium levels are normal now. She will follow-up with nephrology as well. Today's documentation was made using voice recognition software.This note may contain grammatical errors secondary to this software. documented in this encounter Plan of Treatment Upcoming Encounters Date Type Department Care Team (Late st Contact Info) Description 08/01/2024 10:30 AM EDT Office Visit Internal Medicine - [address] [phone] Isaiah Harley MD [address] [place] [address] 10/07/2024 10:30 AM EDT Office Visit Orthopedic Surgery - [place] [address] [phone] Andreas Smith, DPM [address] [address] documented as of this encounter Visit Diagnoses Diagnosis Essential hypertension- Primary Unspecified essential hypertension documented in this encounter Additional Health Concerns Assessment Noted Time PHQ-9 Depression Total Score: 0 05/05/20 24 10:44 AM EST documented as of this encounter Care Teams Sheet Rock Layer Relationship Specialty Start Date End Date Isaiah Harley MD [address] [place] [address] PCP - General Internal Medicine 05/03/20 documented as of this encounter
--- OUTSIDE RECORDS SUMMARY | 2024-07-23 17:34 | XMS_ITS | Clinical Summary ---
Author Organization [facility] Address [address] [place] [address] Care Team Providers Care Tile And Marble Installer Name Role Phone Unavailable Primary Care Provider Unavailabl e Source Comments PLEASE NOTE, if this patient is a minor, it may be UNLAWFUL to discuss sensitive information that is contained in these records (such as FAMILY PLANNING, MENTAL HEALTH or SUBSTANCE ABUSE) with the minor patient's parent or other person without the patient's specific authorization.[facility] Allergies No known active allergies Medications amLODIPine (NORVASC) 10 mg tabletIndicatio ns:hypertension Take 10 mg by mouth once daily. Indications: Hypertension Active metFORMIN (GLUCOPHAGE) 500 mg tabletIndicatio ns:type 2 diabetes mellitus Take 1,000 mg by mouth 2 (two) times daily with a meal. Indications: Type 2 Diabetes Mellitus Active glyBURIDE (DIABETA) 5 mg tabletIndicatio ns:type 2 diabetes mellitus Take 10 mg by mouth 2 (two) times daily with a meal. Indications: Type 2 Diabetes Mellitus Active calcitRIOL (ROCALTROL) 0.25 mcg capsuleIndicati ons:Vitamin D deficiency Take 1 Cap by mouth once daily. 30 Cap 1 3 Active traMADol (ULTRAM) 50 mg tabletIndicatio ns:Back pain Take 1 Tab by mouth 3 (three) times daily as needed for pain. 30 Tab 2 3 Active baclofen (LIORESAL) 10 mg tabletIndicatio ns:Back pain Take 1 Tab by mouth nightly at bedtime. 30 Tab 0 3 Active furosemide (LASIX) 20 mg tablet Take 1 Tab by mouth once daily. 60 Tab 0 3 Active braceIndication s:Low back pain Dx- low back pain use with standing,walking and activity 1 Each 0 3 Active linagliptin (TRADJENTA) 5 mg tabIndications: Diabetes mellitus Take 1 Tab by mouth once daily before lunch. 30 Tab 2 3 Active simvastatin (ZOCOR) 10 mg tabletIndicatio ns:Dyslipidemia Take 1 Tab by mouth nightly at bedtime. 30 Tab 2 3 Active labetalol (NORMODYNE) 300 mg tablet TAKE 1 TABLET BY MOUTH TWICE DAILY 60 Tab 0 4 Active benazepril (LOTENSIN) 40 mg tablet TAKE 1 TABLET BY MOUTH EVERY DAY 30 Tab 0 5 Active amoxicillin (AMOXIL) 500 mg capsuleIndicati ons:Tooth infection Take 1 Cap by mouth 3 (three) times daily 21 Cap 0 Active chlorhexidine gluconate (PERIDEX) 0.12 % solutionIndicat ions:Gingival swelling Swish and spit 15 mL 2 (two) times daily 473 mL 2 0 Active Active Problems Problem Noted Date Diagnosed Date Dyslipidemia 05/19/2013 Low back pain 04/04/2013 Multinodular goiter 01/16/2013 Cancer screening 01/16/2013 HTN (hypertension) 01/15/2013 Diabetes mellitus 01/15/2013 Arthritis 01/15/2013 Vitamin D deficiency 01/15/2013 Resolved Problems Problem Noted Date Diagnosed Date Resolved Date Back pain 04/03/2013 04/04/2013 Nontoxic multinodular goiter 01/16/2013 01/16/2013 Social History Tobacco Use Types Packs/Day Years [...] Sign Reading Time Taken Comments Blood Pressure 158/100 04/10/2013 3:51 PM EST Pulse 82 04/10/2013 3:51 PM EST Temperature 37.1 ??C (98.8 ??F) 04/10/2013 3:51 PM ES T Respiratory Rate 20 04/10/2013 3:51 PM EST Oxygen Saturation - - Inhaled Oxygen Concentration - - Weight 92.1 kg (203 lb) 04/10/2013 3:51 PM EST Height 160 cm (5' 3 ) 04/10/2013 3:51 PM EST Body Mass Index 35.96 04/10/2013 3:51 PM EST Plan of Treatment [place] on file [place] [facility]
--- OUTSIDE RECORDS SUMMARY | 2024-07-23 17:34 | XMS_ITS | Encounter Summary ---
Author Organization [facility] Address [address] [place] [address] Care Team Providers Care Mental Health Nurse Name Role Phone Isaiah Harley MD Primary Care Provider [phone] [phone] Encounter Details Date Type Department Care Team (Late st Contact Info) Description 02/20/2024 10:49 AM EDT Hospital Encounter TH HISTORIC ENCOUNTERS [facility] CONVERSION ONLY Katherine Moya MD [address] [place] [phone] Social History Tobacco Use Types Packs/Day Years [...] for your loved ones. For example, children's librarian or elderly care for an older adult? [...] is a 78 y.o. female. HPI: 78-year-old -Bulgar[place] female who has multiple medical issues, I [...] unspecified type ANEMIA Patient is a 78-year-old -Bulgarian female who has multiple medical issues, I [...] AM EDT Office Visit Internal Medicine - [facility] [address] [place] [address] Isaiah Harley MD [address] [place] [address] 10/07/2024 10:30 AM EDT Office Visit Orthopedic Surgery - [place] [address] [phone] Andreas Smith DPChau [address] [address] documented as of this encounter Visit Diagnoses Not on filedocumented in this encounter Care Teams Mental Health Nurse Relationship Specialty Start Date End Date Isaiah Harley MD [address] [place] [phone] PCP - General Internal Medicine 05/03/20 documented as of this encounter
--- OUTSIDE RECORDS SUMMARY | 2024-07-23 17:34 | XMS_ITS | Encounter Summary ---
Author Organization [facility] [address] Address [address] [place] [address] Care Team Providers Care Check Viewer Name Role Phone Isaiah Harley MD Primary Care Provider [phone] [phone] Encounter Details Date Type Department Care Team (Late st Contact Info) Description 03/21/2024 10:21 AM EDT Hospital Encounter TH HISTORIC ENCOUNTERS EASTERN CONVERSION ONLY Katherine Moya MD [address] [place] [phone] Social History Tobacco Use Types Packs/Day Years [...] your loved ones. For example, early childhood worker or elderly care for an older [...] HPI: Patient is a very pleasant 78-year-old -Trinid[place] female who has multiple medical problem including [...] history physical laboratory data this 78-year-old - Trinidadian female does not have any significant hematological [...] AM EDT Office Visit Internal Medicine - [address] [phone] Isaiah Harley MD [address] [place] [address] 10/07/2024 10:30 AM EDT Office Visit Orthopedic Surgery - [place] 250 [address] [facility] [address] [place] [phone] Andreas Smith DPM 175 [facility] [address] [place] [address] documented as of this encounter Procedures Procedure [...] on filedocumented in this encounter Care Teams Check Viewer Relationship Specialty Start Date End Date Isaiah Harley MD [address] [place] [address] PCP - General Internal Medicine 05/03/20 documented as of this encounter
== END 2024-07-23 14:34 | disposition home or self-care (01) ==
LOC: HO.NEURO 14:33
PROVIDERS: PCP Internal Medicine; Visit Provider Physical Medicine & Rehabilitation
DX: G81.11 Spastic hemiplegia affecting right dominant side (principal)
CPT/HCPCS: 64642; 64643; 95874; J0585

== ENCOUNTER 2024-08-19 10:33 | Outpatient (REF) | payer MEDICARE, MEDICAID, SELFPAY ==
--- OUTSIDE RECORDS SUMMARY | 2024-08-19 12:34 | XMS_ITS ---
Author Organization [facility] Care Team Providers Care Transport Aide Name Role Phone Megha Ng Unavailable Unavailable Jenny Fraire Unavailable Unavailable Sandra Ugalde Unavailable Unavailable Jackson Dangelo Unavailable Unavailable Josie Yu Unavailable Unavailable Allergies and adverse reactions No Known Allergies Care Team Name Role Address Phone Organization Dates Jenny Fraire PCP [address] [facility] [address], [place], [address], [facility] (Office): [facility] 11/12/2022 - 01/31/2023 Megha Ng Attending Physician [address] [place] [address], [address], [place] (Office): [facility] 11/12/2022 - 01/31/2023 Sandra Ugalde Attending Physician [address], [address], [place] (Office): [facility] 11/12/2022 - 01/31/2023 Jackson Dangelo Attending Physician [address] [place], [address], [facility] (Office): [facility] 11/12/2022 - 01/31/2023 Josie Yu Attending Physician [address] [place], [address], [place] (Office): [facility] 11/12/2022 - 01/31/2023 Immunizations Immunization Status Vaccine Details Vaccine Code CodeSystem Date Notes TDAP( Tetanus/Diptheria /Perutssis) completed SARS-COV-2 (COVID-19) vaccine, mRNA, spike protein, LNP, bivalent, preservative free, 30 mcg/0.3 mL dose, fara-sucrose formulation Mfg: [employer] Bivalent Booster 300 CVX created date: 11/13/2022 administere d date: 03/27/2022 SARS-COV-2 (COVID-19) completed SARS-COV-2 (COVID-19) vaccine, mRNA, spike protein, LNP, preservative free, 30 mcg/0.3mL dose Mfg: [employer] Step 2 of Multi-step with next step required 208 CVX created date: 11/13/2022 administere d date: 10/09/2020 SARS-COV-2 (COVID-19) completed SARS-COV-2 (COVID-19) vaccine, mRNA, spike protein, LNP, preservative free, 30 mcg/0.3mL dose Mfg: [employer] Step 1 of Multi-step with next step required 208 CVX created date: 11/13/2022 administere d date: 09/18/2020 SARS-COV-2 (COVID-19 BOOSTER) completed SARS-COV-2 (COVID-19) vaccine, vector non-replicating, recombinant spike protein-Ad26, preservative free, 0.5 mL Mfg: [employer] 212 CVX created date: 11/13/2022 administere d date: 09/14/2021 per [facility] Mental Status Section Date Assessment Total Score Description 01/31/2023 CAM 0 No delirium ind icated 11/16/2022 BIMS 08 moderate cognit shara impairment CAM 0 No delirium ind icated PHQ-9 03 minimal depress ion Problems Problem # Description Date of onset Resolved Date Code CodeSystem Concern Status 1 DYSPHAGIA FOLLOWING CEREBRAL INFARCTION 12/20/[address] active 2 PRESSURE ULCER OF SACRAL REGION, STAGE 3 11/29/[address] active 3 CHRONIC KIDNEY DISEASE, STAGE 3 UNSPECIFIED 11/14/[address] active 4 ABNORMAL POSTURE 11/13/[address] active 5 ANEMIA, UNSPECIFIED 11/13/[address] active 6 DYSPHAGIA, ORAL PHASE 11/13/[address] active 7 HEMIPLEGIA AND HEMIPARESIS FOLLOWING CEREBRAL INFARCTION AFFECTING RIGHT DOMINANT SIDE 11/13/[address] active 8 LYMPHOID INTERSTITIAL PNEUMONIA 11/13/[address] active 9 MUSCLE WEAKNESS (GENERALIZED) 11/13/[address] active 10 OTHER LACK OF COORDINATION 11/13/[address] active 11 OTHER SHOCK 11/13/19 23 12/19/[address] completed 12 PRESENCE OF OTHER SPECIFIED FUNCTIONAL IMPLANTS 11/13/[address] active 13 SEVERE SEPSIS WITH SEPTIC SHOCK 11/13/19 23 12/19/[address] completed 14 UNSPECIFIED DIASTOLIC (CONGESTIVE) HEART FAILURE 11/13/[address] active 15 CEREBRAL INFARCTION, UNSPECIFIED 11/12/[address] active 16 DISEASE OF PANCREAS, UNSPECIFIED 11/12/[address] active 17 ELEVATION OF LEVELS OF LIVER TRANSAMINASE LEVELS 11/12/[address] active 18 ESSENTIAL (PRIMARY) HYPERTENSION 11/12/[address] active 19 HEMIPLEGIA, UNSPECIFIED AFFECTING RIGHT DOMINANT SIDE 11/12/[address] active 20 HEMOTHORAX 11/12/[address] active 21 HYPERLIPIDEMIA, UNSPECIFIED 11/12/[address] active 22 METABOLIC ENCEPHALOPATHY 11/12/[address] active 23 NON-ST ELEVATION (NSTEMI) MYOCARDIAL INFARCTION 11/12/[address] active 24 NONRHEUMATIC AORTIC (VALVE) STENOSIS 11/12/[address] active 25 PAIN IN RIGHT KNEE 11/12/[address] active 26 PLEURAL EFFUSION, NOT ELSEWHERE CLASSIFIED 11/12/[address] active 27 TYPE 2 DIABETES MELLITUS WITHOUT COMPLICATIONS 11/12/[address] active Reason for Referral No Reasons for Referral Entered Social History Social History Observation Description Start Date End Date Code Code System Current Smoking Status Tobacco smoking consumption unknown 918522833 SNOMED CT Sex Assigned At Female 1945 [address]-6 [facility] Vital Signs Code Code System Vitals Name Values and Units Timing Information 93766-5 [facility] Pain Level Value=0.0 01/31/2023 2339-0 [facility] Blood Sugar Value=90.0 Units=mg/dL 01/31/2023 9279-1 [facility] Respiratory Rate Value=18.0 Units=/m in 01/31/2023 8462-4 [facility] Blood Pressure-Diastolic Value=66 Un its=mmHg 01/31/2023 8480-6 [facility] Blood Pressure-Systolic Yjueh=297 Un its=mmHg 01/31/2023 8310-5 [facility] Body Temperature Value=98.2 Units=?? F 01/31/2023 8867-4 [facility] Heart rate Value=72.0 Units=/min 49233-7 [facility] O2 % BldC Oximetry Value=98.0 Units= % 01/31/2023 79535-0 [facility] Weight Dofem=752.2 Units=Lbs 03/2023 8302-2 [facility] Height Value=67.0 Units=Inches 11/14/2022
--- OUTSIDE RECORDS SUMMARY | 2024-08-19 12:34 | XMS_ITS | Encounter Summary ---
Author Organization [facility] Address [address] [place] [address] Care Team Providers Care Transportation Dispatcher Name Role Phone Unavailable Primary Care Provider Unavailabl e Encounter Details Date Type Department Care Team (Late st Contact Info) Description 02/06/2020 Pharmacist Visit Dental [address] [place] [phone] Katia Thapa, JAC [address] [place] [address] Tooth infection (Primary Dx); Gingival swelling Social [...]
--- OUTSIDE RECORDS SUMMARY | 2024-08-19 12:34 | XMS_ITS | Clinical Summary ---
Author Organization [address] [facility] Address [address] [place] [phone] Phone Care Team Providers Care Machine Staker Name Role Phone Isaiah Harley MD Primary Care Provider [phone] [phone] Allergies No known active allergies Medications levETIRAcetam (KEPPRA) 500 mg tablet Take 1 tablet (500 mg total) by mouth 2 (two) times a day. 024 Active atorvastatin (LIPITOR) 80 mg tablet Take 1 tablet (80 mg total) by mouth 1 (one) time each day. 022 Active amLODIPine (NORVASC) 10 mg tablet Take 1 tablet (10 mg total) by mouth 1 (one) time each day. 024 Active protectives, O.U. (SKIN PROTECTANTS, MISC. TOP) Apply 1 Film topically daily. 024 Active nutren 2.0 liquid Take 1 Each by mouth 2 times daily as needed (as needed for nutrition). #60 / month , 11 refills Indefinite Use Dx: I69.30, G81.91, I50.9, R47.01, E11.29, E11.49, N18.90 024 Active diaper,brief,ad ult, disposable (FITTED BRIEFS LARGE MISC) Large Briefs [...] [I50.9] Epileptic disorder (HCC) [G40.909] History of IN (myocardial infarction) [I25.2] 024 Active incontinence pad, liner, disp pad Bed [...] [I42.8] Epileptic disorder (HCC) [G40.909] History of IN (myocardial infarction) [I25.2] 023 Active wound dressings (Triad Wound Dressing) paste Apply topically. Active hydrALAZINE (APRESOLINE) 100 mg tabletIndicatio ns:Essential (primary) hypertension TAKE 1 TABLET BY MOUTH THREE TIMES A DAY 270 tablet 1 025 Active spironolactone (ALDACTONE) 50 mg tablet Take 1.5 tablets (75 mg total) by mouth 1 (one) time each day. 025 Active aspirin-dipyrid amole (AGGRENOX) 25-200 mg per 12 hr capsule Take 1 capsule by mouth 2 (two) times a day. 180 capsule 1 025 Active valsartan (DIOVAN) 160 mg tablet Take 1 tablet (160 mg total) by mouth 1 (one) time each day. 90 tablet 1 025 Active labetaloL (NORMODYNE) 300 mg tabletIndicatio ns:Essential (primary) hypertension TAKE 1 TABLET BY MOUTH THREE TIMES A DAY 270 tablet 1 025 Active valsartan (DIOVAN) 160 mg tablet Take 1 tablet (160 mg total) by mouth 1 (one) time each day. 023 2024 Discontinued(R eorder) labetaloL (NORMODYNE) 300 mg tablet TAKE 1 TABLET BY MOUTH THREE TIMES A DAY 024 2024 Discontinued Active Problems Problem Noted Date Diagnosed Date Non-proliferative diabetic retinopathy, mild, deven th eyes 09/13/2023 Overview (03/31/2024): Dr. Gamez Type 2 diabetes mellitus with eye manifestations 09/13/2023 Adrenal hyperplasia 09/05/2023 Assessment & Plan (05/05/2024 10:51 AM EST): She is scheduled to see with her clerical specialist for adrenal hyperplasia and multinodular goiter. High plasma von Willebrand factor (vWF) 09/05/19 24 Chronic kidney disease, stage 2 (mild) 3 History of IN (myocardial infarction) 02/08/2023 Overview (01/03/2024): 2/2 hemorrhagic shock 10/2022 Epileptic disorder 02/08/2023 Overview (03/31/2024): EEG with epileptiform changes after CVA 08/2021. Keppra 500 mg bid per [facility] neurology lifelong Dysphagia following cerebral infarction 12/20/19 [...] (05/05/2024 10:51 AM EST): She is seeing [facility] cardiology and is scheduled to see [...] in 1 week, he will let her supervisor wood crew know but we could increase her spironolactone dose to 100 mg daily or valsartan dose to 320 mg daily. Will monitor patient's electrolytes. Orders: Basic metabolic panel; Future Diabetes mellitus 01/15/2013 Type 2 diabetes mellitus without complication Vitamin D deficiency 01/15/2013 Encounters Date Type Department Care Team Description 07/31/2024 Telephone [facility] [address] [facility] [address] [place] [address] Jose C Coles MD 07/15/2024 Telephone Internal Medicine - [facility] [address] [place] [address] Isaiah Harley MD provider call back (Copy of referral) 07/01/2024 10:30 AM EST Office Visit Internal Medicine - [place] [address] [place], [place] [phone] Isaiah Harley MD Essential hypertension (Primary Dx) 06/23/2024 Telephone Internal Medicine - [address] [place] [phone] Isaiah Harley MD Referral 05/26/2024 9:45 AM EST Office Visit Internal Medicine - [address] [place] [place] [phone] Isaiah Harley MD Hypertension, unspecified type (Primary Dx); Hypokalemia from Last 3 Months Immunizations Name Administration Dates Next Due [address] [employer] SARS-CoV-2 COVID -19, vector-nr, rS-Ad26, preservative free 09/14/2021,09/11/2021 Pfizer (ages 12 & older) Bivalent, COVID-19 11/0 11/2021 Pfizer SARS-CoV-2 COVID-19, mRNA, LNP-S, preservative [...] X:Stasis dermatitis of both legs Epileptic disorder 02/08/2023 DX:Epileptic disorder (HCC); COMMENT: EEG with epileptiform changes after CVA 08/2021. Keppra 500 mg bid per [facility] neurology lifelong Stroke (CMS/HCC) DX:Stroke (HCC) Adrenal hyperplasia (CMS/HCC) 09/05/2023 DX :Adrenal hyperplasia (HCC) Non-proliferative diabetic retinopathy, mild, both eyes 09/13/2023 DX:Non-proliferative diab etic retinopathy, mild, both eyes (HCC); COMMENT: Dr. Gamez Type 2 diabetes mellitus wit h eye manifestations (CMS/HCC) 09/13/2023 DX: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HCC) Family History Medical History Relation Name Comments [...] for your loved ones. For example, child custody evaluator or elderly care for an older adult? [...] Care Team (Late st Contact Info) Description 10/07/2024 10:30 AM EDT Office Visit Orthopedic Surgery - [place] [address] [phone] Andreas Smith, DPM [address] [address] Health Maintenance Due Date Last Done Comments [...] 10:49 AM EST Hyperlipidemia, unspecified hyperlipidemia type DIABETES EYE EXAM Routine 09/12/2023 DEPRESSION SCREENING Routine 03/01/2023 HEPATITIS C SCREENING Routine 02/13/2023 DXA BONE DENSITY STUDY 1+ SITS AXIAL SKEL Routine 05/17/2017 9:20 AM EST Asymptomatic menopausal state COLONOSCOPY Routine 12/02/2013 from Last 3 Months or Most Recently Relevant to Health Maintenance Results * Potassium (06/18/2024 11:13 AM EST) [facility] Potassium 3.8 3.5 - 5.5 mmol/L LAB CHEMISTRY METHOD 06/18/2024 2:26 PM EST [facility] Blood Venous blood specimen / Unknown Venipuncture / Unknown 06/18/2024 11:13 AM EST 06/18/2024 11:13 AM EST Isaiah Harley MD LAB BLOOD ORDERABLES Dorothea l Result Performing Organization Address City/[facility]/ZIP Co de Phone Number [facility] [address] [place] [address], [place] [phone] * (ABNORMAL) Thyroid stimulating hormone with reflex to free t4 and free t3 (2024 10:49 AM EST) TSH 4.46(H) 0.40 - 4.00 mcIU/mL LAB CHEMISTRY METHOD 2024 3:05 PM EST [facility] Blood Venous blood specimen / Unknown Venipuncture / Unknown 2024 10:49 AM EST 2024 10:49 AM EST Isaiah Harley MD LAB BLOOD ORDERABLES Dorothea l Result Performing Organization Address [facility]/ZIP Co de Phone Number [facility] [address] [place] [address], [place] [phone] * Free thyroxine with reflex to free triiodothyronine (2024 10:49 AM EST) Free T4 1.13 0.70 - 1.80 ng/dL LAB CHEMISTRY METHOD 2024 3:31 PM EST [facility] Blood Venous blood specimen / Unknown Venipuncture / Unknown 2024 10:49 AM EST 2024 10:49 AM EST us Isaiah Harley MD LAB BLOOD ORDERABLES Dorothea l Result [facility] [address] [place] [address], [place] [phone] * Lipid panel with reflex to direct LDL (2024 10:49 AM EST) Cholesterol 180 0 - 200 mg/dL LAB CHEMISTRY METHOD 2024 3:[address] [facility] Triglycerides 73 0 - 150 mg/dL LAB CHEMISTRY METHOD 2024 3:[address] [facility] HDL 65 >=40 mg/dL LAB CHEMISTRY METHOD 2024 3:[address] [facility] LDL Calculated 100 0 - 100 mg/dL LAB CHEMISTRY METHOD 2024 3:[address] [facility] VLDL Cholesterol Pavel 14.6 mg/dL LAB CHEMISTRY METHOD 2024 3:[address] [facility] Non HDL Chol. (LDL+VLDL) 115 <145 mg/dL LAB CHEMISTRY METHOD 2024 3:[address] [facility] Chol/HDL Ratio 2.8 0.0 - 4.4 LAB CHEMISTRY METHOD 2024 3:[address] [facility] Blood Venous blood specimen / Unknown Venipuncture / Unknown 2024 10:49 AM EST 2024 10:49 AM EST Isaiah Harley MD LAB BLOOD ORDERABLES Dorothea l Result [facility] [address] [place] [address], [place] [phone] * Triiodothyronine free (2024 10:49 AM EST) T3, Free 250 230 - 420 pcg/dL LAB CHEMISTRY METHOD 2024 3:[address] [facility] Blood Venous blood specimen / Unknown Venipuncture / Unknown 2024 10:49 AM EST 2024 10:49 AM EST Isaiah Harley MD LAB BLOOD ORDERABLES Dorothea l Result Performing Organization Address [facility]/ZIP Co de Phone Number [facility] [address] [place] [address], [place] [phone] * Alanine aminotransferase (2024 10:49 AM EST) ALT (SGPT) 14 10 - 60 unit/L LAB CHEMISTRY METHOD 2024 2:58 PM EST [facility] Blood Venous blood specimen / Unknown Venipuncture / Unknown 2024 10:49 AM EST 2024 10:49 AM EST Isaiah Harlye MD LAB BLOOD ORDERABLES Dorothea l Result Performing Organization Address [facility]/ZIP Co de Phone Number [facility] [address] [place] [address], [place] [phone] * Aspartate aminotransferase (2024 10:49 AM EST) AST (SGOT) 15 10 - 42 unit/L LAB CHEMISTRY METHOD 2024 2:58 PM EST [facility] Blood Venous blood specimen / Unknown Venipuncture / Unknown 2024 10:49 AM EST 2024 10:49 AM EST us Isaiah Harley MD LAB BLOOD ORDERABLES Dorothea l Result [facility] [address] [place] [address], [place] [phone] * Hemoglobin A1c (2024 10:49 AM EST) Hemoglobin A1C 5.9 <6.5 % LAB CHEMISTRY METHOD 2024 9:[address] [facility] Mean Bld Glu Estim. 123 mg/dL LAB CHEMISTRY METHOD 2024 9:[address] [facility] Blood Venous blood specimen / Unknown Venipuncture / Unknown 2024 10:49 AM EST 2024 10:49 AM EST us Isaiah Harley MD LAB BLOOD ORDERABLES Dorothea l Result [facility] [address] [place] [address], [place] [phone] * (ABNORMAL) Basic metabolic panel (2024 10:49 AM EST) Pathologist [facility] Sodium 140 133 - 145 mmol/L LAB CHEMISTRY METHOD 2024 2:[address] [facility] Potassium 3.2(L) 3.5 - 5.5 mmol/L LAB CHEMISTRY METHOD 2024 2:[address] [facility] Chloride 107 96 - 110 mmol/L LAB CHEMISTRY METHOD 2024 2:[address] [facility] CO2 28 21 - 32 mmol/L LAB CHEMISTRY METHOD 2024 2:[address] [facility] Anion Gap 5 3 - 11 LAB CHEMISTRY METHOD 2024 2:[address] [facility] Glucose 140(H) 70 - 100 mg/dL LAB CHEMISTRY METHOD 2024 2:[address] [facility] BUN 13 5 - 25 mg/dL LAB CHEMISTRY METHOD 2024 2:[address] [facility] Creatinine 1.07 0.50 - 1.10 mg/dL LAB CHEMISTRY METHOD 2024 2:58 PM EST [facility] eGFR 53(L) >=60 mL/min/1. 73m2 LAB CHEMISTRY METHOD 2024 2:58 PM EST [facility] Comment:Calculation based on the??Chronic Kidney Disease Epidemiology Collaboration (CKD-EPI) equation refit??without adjustment for race. BUN/Creatinine Ratio 12.1 LAB CHEMISTRY METHOD 2024 2:58 PM EST [facility] Calcium 8.8 8.5 - 10.5 mg/dL LAB CHEMISTRY METHOD 2024 2:58 PM EST [facility] Blood Venous blood specimen / Unknown Venipuncture / Unknown 2024 10:49 AM EST 2024 10:49 AM EST Isaiah Harley MD LAB BLOOD ORDERABLES Dorothea l Result [facility] [address] [place] [address], * Diabetes Eye Exam (09/12/2023) [facility] Diabetes: Annual Retina Eye Exam abstracted Historical Provider HEALTH MAINTENANCE Final Result * Depression Screening (03/01/2023) [facility] Depression Screening completed Historical Provider HEALTH MAINTENANCE Final Result * Hepatitis C Screening (02/13/2023) [facility] Hepatitis C Screening negatibve Historical Provider HEALTH [...] (World Health Organization Fracture Risk Assessment) [facility] of [facility] Medicine recommends using National [...] (World Health Organization Fracture Risk Assessment) [facility] of Internal Medicine recommendsusing National Osteoporosis [...] fracture risk by FRAX. Simona Vega MD [facility] [place] PROCEDURES Final Re sult * Colonoscopy (12/02/2013) [facility] Colonoscopy abnormal Anatomical Region Laterality Modality Other Historical Provider HEALTH MAINTENANCE Final Result from Last 3 Months or Most Recently Relevant to Health Maintenance Insurance MEDICA[place] - [place] MEDICARE Advance Directives Documents on File Type Date Recorded Patient Passenger Solicitor Expl anation Health Care Decision (hx) 09/14/2021 [...] (hx) 08/19/2021 AD COFFMAN DIRECTIVE Care Teams Machine Staker Relationship Specialty Start Date End Date Isaiah Harley MD [address] [place] [address] PCP - General Internal Medicine 05/03/20
--- OUTSIDE RECORDS SUMMARY | 2024-08-19 12:34 | XMS_ITS | Clinical Summary ---
Author Organization [facility] Address [address] [place] [address] Care Team Providers Care Palletizer Name Role Phone Isaiah Harley MD Primary Care Provider +1 [phone] Allergies No known active allergies Medications Medication [...] age to complete this topic Care Teams Palletizer Relationship Specialty Start Date End Date Isaiah Harley MD [address] [place] [address] PCP - General Internal Medicine 07/27/23
--- OUTSIDE RECORDS SUMMARY | 2024-08-19 12:34 | XMS_ITS | Encounter Summary ---
Author Organization [facility] Address [address] [place] [address] Care Team Providers Care Podiatry Professor Name Role Phone Isaiah Harley MD Primary Care Provider [phone] Encounter Details Date Type Department Care Team (Late st Contact Info) Description 02/20/2024 10:49 AM EDT Hospital Encounter TH HISTORIC ENCOUNTERS EASTERN CONVERSION ONLY Katherine Moya MD [address] [place] [phone] Social History Tobacco Use Types Packs/Day Years [...] for your loved ones. For example, child watch attendant or elderly care for an older adult? [...] is a 78 y.o. female. HPI: 78-year-old -Niuean female who has multiple medical issues, I [...] unspecified type ANEMIA Patient is a 78-year-old -[place] female who has multiple medical issues, I [...] AM EDT Office Visit Orthopedic Surgery - [place] [address] [phone] Andreas Smith DPChau [address] [address] documented as of this encounter Visit Diagnoses Not on filedocumented in this encounter Care Teams Podiatry Professor Relationship Specialty Start Date End Date Isaiah Harley MD [address] [place] [address] PCP - General Internal Medicine 05/03/20 documented as of this encounter
--- OUTSIDE RECORDS SUMMARY | 2024-08-19 12:34 | XMS_ITS | Encounter Summary ---
Author Organization [facility] Address [address] [place] [address] Care Team Providers Care Assembler Dry Cell And Battery Name Role Phone Isaiah Harley MD Primary Care Provider [phone] Encounter Details Date Type Department Care Team (Late st Contact Info) Description 03/21/2024 10:21 AM EDT Hospital Encounter TH HISTORIC ENCOUNTERS EASTERN CONVERSION ONLY Katherine Moya MD [address] [place] [address] Social History Tobacco Use Types Packs/Day Years [...] for your loved ones. For example, child life therapist or elderly care for an older [...] HPI: Patient is a very pleasant 78-year-old -Senegalese female who has multiple medical problem including [...] history physical laboratory data this 78-year-old - Senegalese female does not have any significant hematological [...] AM EDT Office Visit Orthopedic Surgery - [place] [address] [address] Andreas Smith DPM [address] [address] documented as of this encounter Procedures Procedure [...] on filedocumented in this encounter Care Teams Assembler Dry Cell And Battery Relationship Specialty Start Date End Date Isaiah Harley MD [address] [place] [address] PCP - General Internal Medicine 05/03/20 documented as of this encounter
--- OUTSIDE RECORDS SUMMARY | 2024-08-19 12:34 | XMS_ITS | Clinical Summary ---
Author Organization [facility] Address [address] [address] Phone Care Team Providers Care Inside Sales Account Executive Name Role Phone Isaiah Bradley Primary Care Provider [phone] Allergies No known active allergies Medications benazepril [...] 08/01/2021 Immunizations Name Administration Dates Next Due [employer] SARS-COV-2 09/14/2021 Pfizer SARS-COV-2 03/27/2022,10/09/2020,09/19/19 21 Family [...] 9.2 8.7 - 10.7 mg/dL eGFR Non-Afr Honduran 60 Hemoglobin A1C 7.6(A) 4.0 - 6.0 Triglycerides 75 40 - 160 Cholesterol 218(A) 0 - 200 HDL 75(A) 35 - 70 MG/DL LDL Calculated 128 0 - 160 mg/dL 11/12/2020 Historical Provider LAB BLOOD ORDERABLES Dorothea l Result from Last 3 Months or Most Recently Relevant to Health Maintenance [place] Care Teams Inside Sales Account Executive Relationship Specialty Start Date End Date Isaiah Bradley [address] [place] [address] PCP - General Internal Medicine 08/02/21
--- OUTSIDE RECORDS SUMMARY | 2024-08-19 12:34 | XMS_ITS | Clinical Summary ---
Author Organization [facility] Address [address] [place] [address] Care Team Providers Care Body Maker Machine Setter Name Role Phone Unavailable Primary Care Provider [...] Plan of Treatment [place] on file [place] [facility]
[2024-08-19 18:54] LABS: Anion Gap 13 (12-20); Blood Urea Nitrogen 19 mg/dL (9-16); Carbon Dioxide 24 mmol/L (22-29); Chloride 108 mmol/L (96-108); Estimated Glomerular Filt Rate 55; Potassium 3.3 mmol/L (3.3-5.1); Sodium 142 mmol/L (135-145)
== END 2024-08-19 10:34 | disposition home or self-care (01) ==
LOC: HO.HKASLDS 10:33
PROVIDERS: Visit Provider Internal Medicine Nephrology
DX: N18.31 Chronic kidney disease, stage 3a (principal)
CPT/HCPCS: 36415; 80051; 82565; 84520

== ENCOUNTER 2024-08-21 11:44 | Outpatient (AMB) | payer MEDICARE, MEDICAID, SELFPAY ==
[2024-08-21 11:47] VITALS: BMI 23.3
--- NOTE | 2024-08-21 11:47 | MHC.OFFVIS ---
Vital Signs 08/21/24 11:47 Height 5 ft 5 in Weight 140 lb BMI 23.3 Intake Visit Reasons: OV- R Spastic Hemiplegia 1 month s/p Botox Intake Note: Delaney 79 yr old female presents today for her botox follow up visit for her right side spastic hemiplegia. States she noticed her arm is a little less loose than usual however she continues to have tightness in her right leg. 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 History of CKD 3, aortic stenosis, adrenal hyperplasia, CHF, HTN, anemia and pancreatic cyst. Patient is on aspirin and Plavix. No oral spasticity medication listed on record. Tight on the elbow and wrist flexor, some on the right knee flexion. Has not tried baclofen. She had Botox once to right leg while she was in short term rehab but none since. Aphasia has improved since stroke. WC level, aliya transfer. Assistance with dressing, meal prep, dressing. Uses left hand to eat. Uses briefs, does not use toilet or commode. Bed baths only. Reports pain on right hand and right knee pain. History of right knee xray, had CT done for right knee per [facility]. Does not complain of shoulder pain. Recently had outpatient PT at [facility]. 07/23/24 PROCEDURE PERFORMED: Botulinum toxin chemodenervation - Today 08/21/24 is a post Botox follow up DIAGNOSIS:? Spastic hemiparesis affecting dominant side? G81.10 Hemiparesis affecting right side as late effect of cerebrovascular accident? I69.351 Total 300 units used. [facility]ie says there has been improvement on elbow and knee tightness. No complications. Muscle Units per site Number of sites Units per muscle Right brachialis 50 1 50 Right brachioradialis 50 1 50 Right biceps 50 1 50 Right FCR 50 1 50 Right MH 25 2 50 Right LH 25 2 50 ? PFSH Medical History (Updated 05/30/24 @ 11:48 by Ashley Contreras MD) Seizure Hypersomnia Snoring Polyp of colon Aortic stenosis Essential (primary) hypertension History of radioactive iodine thyroid ablation DM (diabetes mellitus), type 2 with renal complications Chronic pain of both knees Stasis dermatitis of both legs Goiter Carpal tunnel syndrome, bilateral DM (diabetes mellitus), type 2 with neurological complications Microalbuminuria Hyperlipidemia CHF (congestive heart failure) Insomnia Aphasia Hemiparesis History of CVA with residual deficit Chronic kidney disease (CKD) Nonischemic cardiomyopathy History of NH (myocardial infarction) Epileptic disorder Adrenal hyperplasia High plasma von Willebrand factor (vWF) Surgical History S/P cardiac cath Family History Son Hypertension Social History Current occupational status: disabled Current occupation: rt handed Physical Exam Vital Signs: BMI result Body Mass Index 23.3 05/30/24: Right elbow flexion Tio 2 only, but has cogwheeling at end range towards full extension Right wrist flexion Tio 3 Fingers are not flex, straight on IP but slightly flexed on MCP joints Right knee flexion Tio 1-2 Right dorsiflexion Tio 0, foot not inverted Today 08/21/24: No more cogwheeling on right elbow, up to -20 degrees extension lag now, Tio 1 Right wrist flexion - still -30 degrees from neutral. Tio 2. Noted more pronation. 2nd and 4th PIP joints tend to flex. Right knee can fu lly extend, Tio 0. Right knee crepitus and patient complains of pain on right knee. Assessment & Plan Assessment & Plan (1) Spastic hemiparesis affecting dominant side: Code(s): G81.10 - Spastic hemiplegia affecting unspecified side Category: Medical (2) Hemiparesis affecting right side as late effect of cerebrovascular accident: Code(s): I69.351 - Hemiplegia and hemiparesis following cerebral infarction affecting right dominant side Category: Medical Plan 1. Very good improvement from first Botox injections from [facility] 07/23/24. They would like to continue. Slight adjustments will be made. Next injection October 22. Will add Rectus 25 units, PT 25 units, remove biceps and put the 50 units to brachialis. increase to 100 units to bracioradialis, add 50 units to FDS. Total 450 units. 2. We will check for right knee x-ray. 3. They are interested in referral to PT for gait training. Assessment and plan discussed with patient, and patient was agreeable. All questions were answered thoroughly. Ashley Contreras MD, BIRDIE Board Certified, [employer] Board of Physical Medicine and Rehabilitation (ABPMR) Board Certified, [place] Board of Electrodiagnostic Medicine (ABEM) Orders: Orders PT Evaluation and Treatment Today G81.10 - Spastic hemiplegia affecting unspecified side, I69.351 - Hemiplegia and hemiparesis following cerebral infarction affecting right dominant side XR knee RT 3V Today G81.10 - Spastic hemiplegia affecting unspecified side, I69.351 - Hemiplegia and hemiparesis following cerebral infarction affecting right dominant side Coding Level of Care Code Est Pt Level 4 (91299) Complex EM visit Add On G2211 Diagnoses Spastic hemiparesis affecting dominant side G81.10 Hemiparesis affecting right side as late effect of cerebrovascular accident I69.351
--- OUTSIDE RECORDS SUMMARY | 2024-08-21 13:06 | XMS_ITS | Encounter Summary ---
Author Organization [facility] Address [address] [place] [address] Care Team Providers Care Temperature Inspector Name Role Phone Isaiah Harley MD Primary Care Provider [phone] Encounter Details Date Type Department Care Team (Late st Contact Info) Description 02/20/2024 10:49 AM EDT Hospital Encounter TH HISTORIC ENCOUNTERS EASTERN CONVERSION ONLY Katherine Moya MD [address] [place] [address] Social History Tobacco Use Types Packs/Day Years [...] is a 78 y.o. female. HPI: 78-year-old -Hungarian female who has multiple medical issues, I [...] unspecified type ANEMIA Patient is a 78-year-old -Hungarian female who has multiple medical issues, I [...] AM EDT Office Visit Orthopedic Surgery - [place] [address] [phone] Andreas Smith DPChau [address] [address] documented as of this encounter Visit Diagnoses Not on filedocumented in this encounter Care Teams Temperature Inspector Relationship Specialty Start Date End Date Isaiah Harley MD [address] [place] [address] PCP - General Internal Medicine 05/03/20 documented as of this encounter
--- OUTSIDE RECORDS SUMMARY | 2024-08-21 13:06 | XMS_ITS | Encounter Summary ---
Author Organization [facility] Address [address] [place] [address] Care Team Providers Care Office Support Assistant Name Role Phone Isaiah Harley MD Primary Care Provider [phone] Encounter Details Date Type Department Care Team (Late st Contact Info) Description 03/21/2024 10:21 AM EDT Hospital Encounter TH HISTORIC ENCOUNTERS EASTERN CONVERSION ONLY Katherine Moya MD [address] [place] [address] Social History Tobacco Use Types Packs/Day Years [...] your loved ones. For example, child care director or elderly care for an older adult? [...] HPI: Patient is a very pleasant 78-year-old -Polish female who has multiple medical problem including [...] history physical laboratory data this 78-year-old - Polish female does not have any significant hematological [...] AM EDT Office Visit Orthopedic Surgery - [place] [address] [phone] Andreas Smith DPM [address] [address] documented as of this encounter Procedures Procedure [...] on filedocumented in this encounter Care Teams Office Support Assistant Relationship Specialty Start Date End Date Isaiah Harley MD [address] [place] [address] PCP - General Internal Medicine 05/03/20 documented as of this encounter
--- OUTSIDE RECORDS SUMMARY | 2024-08-21 13:06 | XMS_ITS | Encounter Summary ---
Author Organization [facility] Address [address] [place] [address] Care Team Providers Care Business Intelligence Reporting Analyst Name Role Phone Unavailable Primary Care Provider Unavailabl e Encounter Details Date Type Department Care Team (Late st Contact Info) Description 02/06/2020 Pharmacist Visit [facility] [address] [place] [id number] Katia Thapa, JAC [address] [place] [address] Tooth infection (Primary Dx); Gingival swelling Social [...]
--- OUTSIDE RECORDS SUMMARY | 2024-08-21 13:06 | XMS_ITS | Clinical Summary ---
Author Organization [facility] Address [address] [address] Phone Care Team Providers Care Traffic Routing Engineer Name Role Phone Isaiah Bradley Primary Care Provider [phone] Allergies No known active allergies Medications benazepril [...] 08/01/2021 Immunizations Name Administration Dates Next Due [employer] SARS-COV-2 09/14/2021 Pfizer SARS-COV-2 03/27/2022,10/09/2020,09/19/19 21 Family [...] 9.2 8.7 - 10.7 mg/dL eGFR Non-Afr Kittitian 60 Hemoglobin A1C 7.6(A) 4.0 - 6.0 Triglycerides 75 40 - 160 Cholesterol 218(A) 0 - 200 HDL 75(A) 35 - 70 MG/DL LDL Calculated 128 0 - 160 mg/dL 11/12/2020 Historical Provider LAB BLOOD ORDERABLES Dorothea l Result from Last 3 Months or Most Recently Relevant to Health Maintenance [place] Care Teams Traffic Routing Engineer Relationship Specialty Start Date End Date Isaiah Bradley [address] [place] [address] PCP - General Internal Medicine 08/02/21
--- OUTSIDE RECORDS SUMMARY | 2024-08-21 13:06 | XMS_ITS ---
Author Organization [facility] Care Team Providers Care Nuclear Operations Specialist Name Role Phone Megha Ng Unavailable Unavailable Jenny Fraire Unavailable Unavailable Sandra Ugalde Unavailable Unavailable Jackson Dangelo Unavailable Unavailable Josie Yu Unavailable Unavailable Allergies and adverse reactions No Known Allergies Care Team Name Role Address Phone Organization Dates Jenny Fraire PCP [address] [facility] [address], [place], [address], [facility] (Office): [facility] 11/12/2022 - 01/31/2023 Megha Ng Attending Physician [address] [place] [address], [address], [place] (Office): [facility] 11/12/2022 - 01/31/2023 Sandra Ugalde Attending Physician [address], [address], [place] (Office): [facility] 11/12/2022 - 01/31/2023 Jackson Dangelo Attending Physician [address] [place], [address], [facility] (Office): [facility] 11/12/2022 - 01/31/2023 Josie Yu Attending Physician [address] [place], [address], [place] (Office): [facility] 11/12/2022 - 01/31/2023 Immunizations Immunization Status Vaccine Details Vaccine Code CodeSystem Date Notes TDAP( Tetanus/Diptheria /Perutssis) completed SARS-COV-2 (COVID-19) vaccine, mRNA, spike protein, LNP, bivalent, preservative free, 30 mcg/0.3 mL dose, fara-sucrose formulation Mfg: [employer] Bivalent Booster 300 CVX created date: 11/13/2022 administere d date: 03/27/2022 SARS-COV-2 (COVID-19) completed SARS-COV-2 (COVID-19) vaccine, mRNA, spike protein, LNP, preservative free, 30 mcg/0.3mL dose Mfg: [employer] Step 2 of Multi-step with next step required 208 CVX created date: 11/13/2022 administere d date: 10/09/2020 SARS-COV-2 (COVID-19) completed SARS-COV-2 (COVID-19) vaccine, mRNA, spike protein, LNP, preservative free, 30 mcg/0.3mL dose Mfg: [employer] Step 1 of Multi-step with next step required 208 CVX created date: 11/13/2022 administere d date: 09/18/2020 SARS-COV-2 (COVID-19 BOOSTER) completed SARS-COV-2 (COVID-19) vaccine, vector non-replicating, recombinant spike protein-Ad26, preservative free, 0.5 mL Mfg: [employer] 212 CVX created date: 11/13/2022 administere d date: 09/14/2021 per [facility] Mental Status Section Date Assessment Total Score Description 01/31/2023 CAM 0 No delirium ind icated 11/16/2022 BIMS 08 moderate cognit shara impairment CAM 0 No delirium ind icated PHQ-9 03 minimal depress ion Problems Problem # Description Date of onset Resolved Date Code CodeSystem Concern Status 1 DYSPHAGIA FOLLOWING CEREBRAL INFARCTION 12/20/[address] active 2 PRESSURE ULCER OF SACRAL REGION, STAGE 3 11/29/[address] active 3 CHRONIC KIDNEY DISEASE, STAGE 3 UNSPECIFIED 11/14/[address] active 4 ABNORMAL POSTURE 11/13/[address] active 5 ANEMIA, UNSPECIFIED 11/13/[address] active 6 DYSPHAGIA, ORAL PHASE 11/13/[address] active 7 HEMIPLEGIA AND HEMIPARESIS FOLLOWING CEREBRAL INFARCTION AFFECTING RIGHT DOMINANT SIDE 11/13/[address] active 8 LYMPHOID INTERSTITIAL PNEUMONIA 11/13/[address] active 9 MUSCLE WEAKNESS (GENERALIZED) 11/13/[address] active 10 OTHER LACK OF COORDINATION 11/13/[address] active 11 OTHER SHOCK 11/13/19 23 12/19/[address] completed 12 PRESENCE OF OTHER SPECIFIED FUNCTIONAL IMPLANTS 11/13/[address] active 13 SEVERE SEPSIS WITH SEPTIC SHOCK 11/13/19 23 12/19/[address] completed 14 UNSPECIFIED DIASTOLIC (CONGESTIVE) HEART FAILURE 11/13/[address] active 15 CEREBRAL INFARCTION, UNSPECIFIED 11/12/[address] active 16 DISEASE OF PANCREAS, UNSPECIFIED 11/12/[address] active 17 ELEVATION OF LEVELS OF LIVER TRANSAMINASE LEVELS 11/12/[address] active 18 ESSENTIAL (PRIMARY) HYPERTENSION 11/12/[address] active 19 HEMIPLEGIA, UNSPECIFIED AFFECTING RIGHT DOMINANT SIDE 11/12/[address] active 20 HEMOTHORAX 11/12/[address] active 21 HYPERLIPIDEMIA, UNSPECIFIED 11/12/[address] active 22 METABOLIC ENCEPHALOPATHY 11/12/[address] active 23 NON-ST ELEVATION (NSTEMI) MYOCARDIAL INFARCTION 11/12/[address] active 24 NONRHEUMATIC AORTIC (VALVE) STENOSIS 11/12/[address] active 25 PAIN IN RIGHT KNEE 11/12/[address] active 26 PLEURAL EFFUSION, NOT ELSEWHERE CLASSIFIED 11/12/[address] active 27 TYPE 2 DIABETES MELLITUS WITHOUT COMPLICATIONS 11/12/[address] active Reason for Referral No Reasons for Referral Entered Social History Social History Observation Description Start Date End Date Code Code System Current Smoking Status Tobacco smoking consumption unknown 967574211 SNOMED CT Sex Assigned At Female 1945 45527-6 [facility] Vital Signs Code Code System Vitals Name Values and Units Timing Information 67854-2 [facility] Pain Level Value=0.0 01/31/2023 2339-0 [facility] Blood Sugar Value=90.0 Units=mg/dL 01/31/2023 9279-1 [facility] Respiratory Rate Value=18.0 Units=/m in 01/31/2023 8462-4 [facility] Blood Pressure-Diastolic Value=66 Un its=mmHg 01/31/2023 8480-6 [facility] Blood Pressure-Systolic Qkjjs=603 Un its=mmHg 01/31/2023 8310-5 [facility] Body Temperature Value=98.2 Units=?? F 01/31/2023 8867-4 [facility] Heart rate Value=72.0 Units=/min 79679-5 [facility] O2 % BldC Oximetry Value=98.0 Units= % 01/31/2023 51255-0 [facility] Weight Zbifs=516.2 Units=Lbs 03/2023 8302-2 [facility] Height Value=67.0 Units=Inches 11/14/2022
--- OUTSIDE RECORDS SUMMARY | 2024-08-21 13:06 | XMS_ITS | Clinical Summary ---
Author Organization [address] [facility] Address [address] [place] [phone] Phone Care Team Providers Care Dam Tender Assistant Name Role Phone Isaiah Harley MD Primary Care Provider [phone] [phone] Allergies No known active allergies Medications levETIRAcetam [...] [I50.9] Epileptic disorder (HCC) [G40.909] History of [place] (myocardial infarction) [I25.2] 024 Active incontinence pad, [...] [I42.8] Epileptic disorder (HCC) [G40.909] History of VA (myocardial infarction) [I25.2] 023 Active wound dressings [...] She is scheduled to see with her field artillery radar operator for adrenal hyperplasia and multinodular goiter. High plasma von Willebrand factor (vWF) 09/05/19 24 Chronic kidney disease, stage 2 (mild) 3 History of [place] (myocardial infarction) 02/08/2023 Overview (01/03/2024): 2/2 hemorrhagic shock 10/2022 Epileptic disorder 02/08/2023 Overview (03/31/2024): EEG with epileptiform changes after CVA 08/2021. Keppra 500 mg bid per [facility] neurology lifelong Dysphagia following cerebral [...] (05/05/2024 10:51 AM EST): She is seeing [facility] cardiology and is scheduled to see [...] in 1 week, he will let her mixing operator know but we could increase her spironolactone dose to 100 mg daily or valsartan dose to 320 mg daily. Will monitor patient's electrolytes. Orders: Basic metabolic panel; Future Diabetes mellitus 01/15/2013 Type 2 diabetes mellitus without complication Vitamin D deficiency 01/15/2013 Encounters Date Type Department Care Team Description 07/31/2024 Telephone [facility] [address] [facility] [address] [place] [address] Jose C Coles MD 07/15/2024 Telephone [facility] [address] [place] [phone] Isaiah Harley MD provider call back (Copy of referral) 07/01/2024 10:30 AM EST Office Visit [facility] - [facility] [address] [place], [place] [phone] Isaiah Harley MD Essential hypertension (Primary Dx) 06/23/2024 Telephone Internal Medicine - [address] [place] [phone] Isaiah Harley MD Referral 05/26/2024 9:45 AM EST Office Visit Internal Medicine - [address] [place] [phone] Isaiah Harley MD Hypertension, unspecified type (Primary Dx); Hypokalemia from Last 3 Months Immunizations Name Administration Dates Next Due [employer] SARS-CoV-2 COVID -19, vector-nr, rS-Ad26, preservative free [...] CVA 08/2021. Keppra 500 mg bid per [facility] neurology lifelong Stroke (CMS/HCC) DX:Stroke (HCC) Adrenal [...] for your loved ones. For example, child daycare worker or elderly care for an older [...] AM EDT Office Visit Orthopedic Surgery - [place] [address] [phone] Andreas Smith, DPM [address] [address] Health Maintenance Due Date Last Done Comments Diabetes: Annual Foot Exam 1955 DTaP,Tdap,and Td Vaccines (1 - Tdap) 1965 Pneumococcal Vaccine: 50+ Years (1 of 2 - PCV) 1965 Zoster Vaccines (1 of 2) 1996 RSV Immunization Adult Patients (1 - 1-dose 75+ series) 2021 Diabetes: Annual Urine Albumin-Creatinine Ratio (uACR) 05/05/2022 Colorectal Cancer Screening: Colonoscopy 12/03/2023 12/02/2013 COVID-19 Vaccine ( season) 2024 03/27/2022, 09/14/2021, 09/11/2021, Additional history exists Diabetes: Annual Retina Eye Exam 09/11/2024 09/12/2023 Diabetes: Blood Sugar Control Test (HGBA1C) 11/19/2024 2024, 09/05/2023 Influenza Vaccine (Season Ended) 2025 Depression Screening 05/05/2025 05/05/2024, 03/01/20 Falls Risk [...] POTASSIUM Routine 06/18/2024 11:13 AM EST Hypokalemia BASIC METABOLIC PANEL Routine 2024 10:49 AM EST Essential hypertension HEMOGLOBIN A1C Routine 2024 10:49 AM EST Diabetic nephropathy associated with type 2 diabetes mellitus (CMS/HCC) LIPID PANEL WITH REFLEX TO DIRECT LDL [...] LAB CHEMISTRY METHOD 06/18/2024 2:26 PM EST [facility] Blood Venous blood specimen / Unknown Venipuncture / Unknown 06/18/2024 11:13 AM EST 06/18/2024 11:13 AM EST us Isaiah Harley MD LAB BLOOD ORDERABLES [facility] Result [facility] [address] [place] [address], * Lipid panel with reflex to direct LDL (2024 10:49 AM EST) Cholesterol 180 0 - 200 mg/dL LAB CHEMISTRY METHOD 2024 3:03 PM [facility] Triglycerides 73 0 - 150 mg/dL LAB CHEMISTRY METHOD 2024 3:03 PM [facility] HDL 65 >=40 mg/dL LAB CHEMISTRY METHOD 2024 3:03 PM [facility] LDL Calculated 100 0 - 100 mg/dL LAB CHEMISTRY METHOD 2024 3:03 PM [facility] VLDL Cholesterol Pavel 14.6 mg/dL LAB CHEMISTRY METHOD 2024 3:03 PM [facility] Non HDL Chol. (LDL+VLDL) 115 <145 mg/dL LAB CHEMISTRY METHOD 2024 3:03 PM [facility] Chol/HDL Ratio 2.8 0.0 - 4.4 LAB CHEMISTRY METHOD 2024 3:03 PM [facility] Blood Venous blood specimen / Unknown Venipuncture / Unknown 2024 10:49 AM EST 2024 10:49 AM EST Isaiah Harley MD LAB BLOOD ORDERABLES [facility] Result [facility] [address] [place] [address], [place] [phone] * Hemoglobin A1c (2024 10:49 AM EST) Hemoglobin A1C 5.9 <6.5 % LAB CHEMISTRY METHOD 2024 9:17 PM [facility] Mean Bld Glu Estim. 123 mg/dL LAB CHEMISTRY METHOD 2024 9:17 PM [facility] Blood Venous blood specimen / Unknown Venipuncture / Unknown 2024 10:49 AM EST 2024 10:49 AM EST Isaiah Harley MD LAB BLOOD ORDERABLES [facility] l Result [facility] [address] [place] [address], * (ABNORMAL) Basic metabolic panel (2024 10:49 AM EST) Sodium 140 133 - 145 mmol/L LAB CHEMISTRY METHOD 2024 2:58 PM [facility] Potassium 3.2(L) 3.5 - 5.5 mmol/L LAB CHEMISTRY METHOD 2024 2:58 PM [facility] Chloride 107 96 - 110 mmol/L LAB CHEMISTRY METHOD 2024 2:58 PM [facility] CO2 28 21 - 32 mmol/L LAB CHEMISTRY METHOD 2024 2:58 PM [facility] Anion Gap 5 3 - 11 LAB CHEMISTRY METHOD 2024 2:58 PM [facility] Glucose 140(H) 70 - 100 mg/dL LAB CHEMISTRY METHOD 2024 2:58 PM [facility] BUN 13 5 - 25 mg/dL LAB CHEMISTRY METHOD 2024 2:58 PM [facility] Creatinine 1.07 0.50 - 1.10 mg/dL LAB CHEMISTRY METHOD 2024 2:58 PM [facility] eGFR 53(L) >=60 mL/min/1. 73m2 LAB CHEMISTRY METHOD 2024 2:58 PM [facility] Comment:Calculation based on the??Chronic Kidney Disease Epidemiology Collaboration (CKD-EPI) equation refit??without adjustment for race. BUN/Creatinine Ratio 12.1 LAB CHEMISTRY METHOD 2024 2:58 PM [facility] Calcium 8.8 8.5 - 10.5 mg/dL LAB CHEMISTRY METHOD 2024 2:58 PM EST [facility] Blood Venous blood specimen / Unknown Venipuncture / Unknown 2024 10:49 AM EST 2024 10:49 AM EST Isaiah Harley MD LAB BLOOD ORDERABLES [facility]a l Result [facility] [address] [place] [address], * Diabetes Eye Exam (09/12/2023) Pathologist [facility] Diabetes: Annual Retina Eye Exam abstracted Historical Provider MD HEALTH MAINTENANCE Final Result * Depression Screening (03/01/2023) [facility] Depression Screening completed Historical Provider HEALTH MAINTENANCE Final Result * Hepatitis C Screening (02/13/2023) [facility] Hepatitis C Screening negatibve Historical Provider MD HEALTH MAINTENANCE Final Result * DXA BONE [...] (World Health Organization Fracture Risk Assessment) [facility] Department of Internal Medicine recommends using National [...] (World Health Organization Fracture Risk Assessment) [facility] Department of Internal Medicine recommendsusing National Osteoporosis [...] PROCEDURES Final Re sult * Colonoscopy (12/02/2013) [facility] Colonoscopy abnormal Anatomical Region Laterality Modality Other Historical Provider HEALTH MAINTENANCE Final Result from Last 3 Months or Most Recently Relevant to Health Maintenance Insurance MEDICAID - [place] MEDICARE Advance Directives Documents on File Type Date Recorded Patient Knotter Expl anation Health Care Decision (hx) 09/14/2021 [...] (hx) 08/19/2021 AD COFFMAN DIRECTIVE Care Teams Dam Tender Assistant Relationship Specialty Start Date End Date Isaiah Harley MD [address] [place] [id number] PCP - General Internal Medicine 05/03/20
--- OUTSIDE RECORDS SUMMARY | 2024-08-21 13:06 | XMS_ITS | Clinical Summary ---
Author Organization [facility] Address [address] [place] [address] Care Team Providers Care Field Marketing Lead Name Role Phone Unavailable Primary Care Provider [...] Plan of Treatment [place] [facility] [place]
--- OUTSIDE RECORDS SUMMARY | 2024-08-21 13:06 | XMS_ITS | Clinical Summary ---
Author Organization [facility] Address [address] [place] [address] Care Team Providers Care Microsoft Windows Engineer Name Role Phone Isaiah Harley MD Primary Care Provider [phone] [phone] Allergies No known active allergies Medications Medication [...] age to complete this topic Care Teams Microsoft Windows Engineer Relationship Specialty Start Date End Date Isaiah Harley MD [address] [place] [id number] PCP - General Internal Medicine 07/27/23
== END 2024-08-21 12:29 | disposition home or self-care (01) ==
LOC: HO.HOS 11:44
PROVIDERS: PCP Internal Medicine; Visit Provider Physical Medicine & Rehabilitation
DX: G81.11 Spastic hemiplegia affecting right dominant side (principal); I69.351 Hemiplegia and hemiparesis following cerebral infarction affecting right dominant side
CPT/HCPCS: 99213; G2211

== ENCOUNTER → 2024-08-21 11:44 | Outpatient (BNVA) | payer MEDICARE, MEDICAID, SELFPAY | PROVIDERS: PCP Internal Medicine; Visit Provider Physical Medicine & Rehabilitation | DX: I69.351 Hemiplegia and hemiparesis following cerebral infarction affecting right dominant side (principal); N18.30 Chronic kidney disease, stage 3 unspecified; Z79.01 Long term (current) use of anticoagulants; Z79.82 Long term (current) use of aspirin | CPT/HCPCS: 99212 ==

== ENCOUNTER 2024-09-02 10:34 | Outpatient (AMB) | payer MEDICARE, MEDICAID, SELFPAY ==
--- NOTE | 2024-09-02 10:58 | HO.NEPHOV ---
Vital Signs 09/02/24 10:59 Height 5 ft 5 in BMI Reason not done Patient refused/unable BP 122/60 Blood Pressure Location Lt brachial Position Sitting Pulse 67 Pulse Source Pulse Oximeter Pulse Oximetry (%) 97 Oxygen Delivery Method Room Air Intake Visit Reasons: 4mon follow up w/labs Manager Of Allied Health Services Required: No Accompanied by: Son Allergies No Known Allergies Allergy (Verified 09/02/24 10:59) HPI Comments Details: Delaney was seen for management of her history of CKD and hypertension. She has had CVA with right hemiparesis. She has history of seizures and has been on Keppra. She has history of aortic stenosis and was evaluated for TAVR. She was deemed not to be a candidate for TAVR in the past. She regularly follows up cardiology. She has history of congestive heart failure. She is on multiple antihypertensive medications along with statins. She has history of adrenal hyperplasia seen on MRI and is going to be followed by an internal communications writer. She has history of anemia and pancreatic cyst. She has had colonic polyps and is due colonoscopy in 2024. She also has history of to pancreatic cyst his which was deemed not to be high risk for malignancy and Gastroenterology is closely following it up. She denies any chest pain, shortness of breath, proximal nocturnal dyspnea, orthopnea or orthostatic symptoms. Her last serum creatinine has been stable. Her BP is consistently at goal [facility] Medical History (Updated 05/30/24 @ 11:48 by Ashley Contreras MD) Seizure Hypersomnia Snoring Polyp of colon Aortic stenosis Essential (primary) hypertension History of radioactive iodine thyroid ablation DM (diabetes mellitus), type 2 with renal complications Chronic pain of both knees Stasis dermatitis of both legs Goiter Carpal tunnel syndrome, bilateral DM (diabetes mellitus), type 2 with neurological complications Microalbuminuria Hyperlipidemia CHF (congestive heart failure) Insomnia Aphasia Hemiparesis History of CVA with residual deficit Chronic kidney disease (CKD) Nonischemic cardiomyopathy History of [place] (myocardial infarction) Epileptic disorder Adrenal hyperplasia High plasma von Willebrand factor (vWF) Surgical History S/P cardiac cath Family History Son Hypertension Social History Current occupational status: disabled Current occupation: rt handed Review of Systems Const All systems reviewed & are unremarkable except as noted in HPI and below Physical Exam Vital Signs: Last Vital Signs Pulse 67 09/02/24 10:59 BP 122/60 09/02/24 10:59 Pulse Ox 97 09/02/24 10:59 Oxygen Delivery Method Room Air 09/02/24 10:59 Const General: comfortable and no acute distress Orientation/consciousness: patient oriented x3 HEENT Head: Yes normocephalic Mouth: Normal oral and palatal mucosa present Eyes EOM: EOMs intact bilaterally Neck Neck: Yes supple Resp Auscultation: clear to auscultation bilaterally Cardio Jugular venous distension: no JVD Rate: regular rate GI Palpation (GI): Soft to palpation Auscultation: normal bowel sounds General: Yes no CVA tenderness Back/Spine/Pelvis Back: no CVA tenderness Skin General skin exam: no rashes or lesions noted Neuro General: patient oriented x3 Extrem General: Yes no pedal edema Results Reviewed Nephrology Results: Sodium 142 mmol/L (135-145) 08/19/24 Potassium 3.3 mmol/L (3.3-5.1) 08/19/24 Chloride 108 mmol/L (96-108) 08/19/24 Carbon Dioxide 24 mmol/L (22-29) 08/19/24 BUN 19 mg/dL (9-16) H 08/19/24 Creatinine 0.98 mg/dL (0.5-1.4) 08/19/24 Assessment & Plan Assessment & Plan (1) CKD stage 3a, GFR 45-59 ml/min: Code(s): N18.31 - Chronic kidney disease, stage 3a Category: Medical (2) Essential (primary) hypertension: Code(s): I10 - Essential (primary) hypertension Category: Medical Plan Delaney has longstanding hypertension with cardiomyopathy and history of CVA with a residual right hemiparesis. She has a diabetic. She has history of hypokalemia which is better after I increased her spironolactone to 50 mg daily which should control her serum potassium and blood pressure especially given history of cardiomyopathy. I shall maximize Spironolactone and D/C Amlodipine if her K permits, with time . She needs to follow-up with her internal communications writer and needs labs to check for her adrenal issues. Her blood sugar needs to be maintained at goal. She needs to maintain good hydration and minimize salt in the diet. She should not take any nonsteroidal anti-inflammatories. All these have been discussed in detail. Answered all questions. Follow-up appointment given Orders: Orders Blood Urea Nitrogen 3 Months I10 - Essential (primary) hypertension, N18.31 - Chronic kidney disease, stage 3a Creatinine 3 Months I10 - Essential (primary) hypertension, N18.31 - Chronic kidney disease, stage 3a Electrolytes 3 Months I10 - Essential (primary) hypertension, N18.31 - Chronic kidney disease, stage 3a Coding Level of Care Code Est Pt Level 4 (96290) Diagnoses CKD stage 3a, GFR 45-59 ml/min N18.31 Essential (primary) hypertension I10
[2024-09-02 10:59] VITALS: BP 122/60; PULSE 67; O2SAT 97
--- OUTSIDE RECORDS SUMMARY | 2024-09-02 12:41 | XMS_ITS | Encounter Summary ---
Author Organization [facility] Address [address] [place] [address] Care Team Providers Care Soft Work Wrapper Examiner Name Role Phone Isaiah Harley MD Primary Care Provider [phone] Encounter Details Date Type Department Care Team (Late st Contact Info) Description 03/21/2024 10:21 AM EDT Hospital Encounter TH HISTORIC ENCOUNTERS [facility]ASTERN CONVERSION ONLY Katherine Moya MD [address] [place] [id number] Social History Tobacco Use Types Packs/Day Years [...] for your loved ones. For example, child nurse or elderly care for an older adult? [...] HPI: Patient is a very pleasant 78-year-old -[place] female who has multiple medical problem including [...] times a day., Disp: , Rfl: ??? Klor-Con M20 20 [...] history physical laboratory data this 78-year-old - [place] female does not have any significant hematological [...] AM EDT Office Visit Orthopedic Surgery - [place] [address] [phone] Andreas Smith DPM [address] [address] documented as of this encounter Procedures Procedure [...] on filedocumented in this encounter Care Teams Soft Work Wrapper Examiner Relationship Specialty Start Date End Date Isaiah Harley MD [address] [place] [id number] PCP - General Internal Medicine 05/03/20 documented as of this encounter
--- OUTSIDE RECORDS SUMMARY | 2024-09-02 12:41 | XMS_ITS | Clinical Summary ---
Author Organization [facility] Address [address] [place] [address] Care Team Providers Care Tubing Assembler Name Role Phone Unavailable Primary Care Provider [...] Plan of Treatment Not on file [place] [facility]
--- OUTSIDE RECORDS SUMMARY | 2024-09-02 12:41 | XMS_ITS | Encounter Summary ---
Author Organization [facility] Address [address] [place] [address] Care Team Providers Care Upper Leather Cutter Name Role Phone Unavailable Primary Care Provider Unavailabl e Encounter Details Date Type Department Care Team (Late st Contact Info) Description 02/06/[address] [facility] [address] [place] [phone] Katia Thapa, JAC [address] [place] [address] Tooth infection (Primary Dx); Gingival swelling Social [...]
--- OUTSIDE RECORDS SUMMARY | 2024-09-02 12:41 | XMS_ITS | Clinical Summary ---
Author Organization [address] [facility] Address [address] [place] [phone] Phone Care Team Providers Care Big 6 Dealer Name Role Phone Isaiah Harley MD Primary Care Provider [phone] Allergies No known active allergies Medications levETIRAcetam [...] [I50.9] Epileptic disorder (HCC) [G40.909] History of [place] (myocardial infarction) [I25.2] 024 Active incontinence pad, [...] [I42.8] Epileptic disorder (HCC) [G40.909] History of [place] (myocardial infarction) [I25.2] 023 Active wound dressings [...] A DAY 270 tablet 1 025 Active labetaloL (NORMODYNE) 300 mg tablet TAKE 1 TABLET BY MOUTH THREE TIMES A DAY 024 2024 Discontinued Active Problems Problem Noted Date Diagnosed Date Non-proliferative diabetic r etinopathy, mild, both eyes ([facility] V24, [facility] V28) 09/13/2023 Overview (03/31/2024): Dr. Gamez Type 2 diabetes mellitus wit h eye manifestations ([facility] V24, [facility] V28) 09/13/2023 Adrenal hyperplasia ([facility] V24) 09/05/2023 Assessment & Plan (05/05/2024 10:51 AM EST): She is scheduled to see with her exhibits manager for adrenal hyperplasia and multinodular goiter. High plasma von Willebrand factor (vWF) 09/05/19 24 Chronic kidney disease, stage 2 (mild) 3 History of [place] (myocardial infarction) 02/08/2023 Overview (01/03/2024): 2/2 hemorrhagic shock 10/2022 Epileptic disorder ([facility] V24, [facility] V28) Overview (03/31/2024): EEG with epileptiform changes after CVA 08/2021. Keppra 500 mg bid per [facility] neurology lifelong Dysphagia following cerebral infarction 12/20/19 23 Pressure ulcer of sacral reg ion, stage 3 ([facility] V24, [facility] V28) 11/28/2022 Stage 3 chronic kidney disease ([facility] V24, [facility] V28) 11/13/2022 Abnormal posture 11/12/2022 Anemia 11/12/2022 Diastolic congestive heart f ailure ([facility] V24, [facility] V28) 11/12/2022 Generalized muscle weakness 11/12/2022 Hemiplegia and hemiparesis f ollowing cerebral infarction affecting right dominant side ([facility] V24, [facility] V28) 11/12/2022 Assessment & Plan (05/05/2024 10:51 AM EST): She followed up with her neurologist, . She is currently on Aggrenox and atorvastatin. She is also on Keppra for seizures. No recent seizure episodes. Lymphoid interstitial pneumonia ([facility] V24, [facility] V28) 11/12/2022 Other lack of coordination 11/12/2022 Presence of other specified functional implants 11/12/2022 Cerebral infarction ([facility] V24, [facility] V28) 0 11/11/2022 Hemiplegia affecting right d ominant side ([facility] V24, [facility] V28) 11/11/2022 Elevation of levels of liver transaminase levels 11/11/2022 Metabolic encephalopathy 11/11/2022 Pleural effusion 11/11/2022 Nonischemic cardiomyopathy ([facility] V24, [facility] V28) 03/02/2022 Overview (01/03/2024): Last Assessment & Plan: [...] week. Aphasia 10/06/2021 CHF (congestive heart failure) ([facility] V24, [facility] V28) 10/06/2021 CKD (chronic kidney disease) 10/06/2021 Hemiparesis, right ([facility] V24, [facility] V28) History of CVA with residual deficit 10/06/2021 [...] associa jason with type 2 diabetes mellitus ([facility] V24, [facility] V28) 08/01/2021 Assessment & Plan (05/05/2024 10:51 AM [...] (05/05/2024 10:51 AM EST): She is seeing [facility] cardiology and is scheduled to see [...] in 1 week, he will let her section crews activities clerk know but we could increase her spironolactone dose to 100 mg daily or valsartan dose to 320 mg daily. Will monitor patient's electrolytes. Orders: Basic metabolic panel; Future Diabetes mellitus ([facility]/HCC V24, [facility] V28) Type 2 diabetes mellitus wit hout complication ([facility] V24, [facility] V28) 01/15/2013 Vitamin D deficiency 01/15/2013 Encounters Date Type Department Care Team Description 07/31/2024 Telephone [facility] - [address] [place] [address] Jose C Coles MD 07/15/2024 Telephone Internal Medicine - [address] [phone] Isaiah Harley MD provider call back (Copy of referral) 07/01/2024 10:30 AM EST Office Visit Internal Medicine - [address] [place] [address] sIaiah Harley MD Essential hypertension (Primary Dx) 06/23/2024 Telephone Internal Medicine - [address] [address] Isaiah Harley MD Referral from Last 3 Months Immunizations Name Administration Dates Next Due [employer] SARS-CoV-2 COVID -19, vector-nr, rS-Ad26, preservative free 09/14/2021,09/11/2021 Pfizer (ages 12 & older) Bivalent, COVID-19 11/0 11/2021 Pfizer SARS-CoV-2 COVID-19, mRNA, LNP-S, preservative free 10/09/2020,09/18/2020 Medical History Medical History Date Comments Polyp of colon 03/20/2017 DX:Polyp of colo n Obesity (BMI 30-39.9) 03/20/2017 DX:Obesity (BMI 30-39.9) DM (diabetes mellitus), type 2 with renal complications ([facility] V24, [facility] V28) 03/20/2017 DX:DM (diabetes mellitus), t ype 2 with renal complications (HCC) DM (diabetes mellitus), type 2 with neurological complications ([facility]/HCC V24, [facility] V28) 05/03/2020 DX:DM (diabetes mellitus), t ype 2 with neurological complications (HCC) Carpal tunnel syndrome, bilateral 05/03/2020 DX:Carpal tunnel syndrome, bilateral Goiter 05/03/2020 DX:Goiter Stasis dermatitis of both legs 05/03/2020 D X:Stasis dermatitis of both legs Epileptic disorder ([facility] V24, [facility] V28) 02/08/2023 DX:Epileptic disorder ([facility]); COMMENT: EEG with epileptiform changes after CVA 08/2021. Keppra 500 mg bid per [facility] neurology lifelong Stroke ([facility] V24, [facility] V28) DX:Stroke (HCC) Adrenal hyperplasia ([facility] V24) 09/05/2023 DX:Adrenal hyperplasia (HCC) Non-proliferative diabetic retinopathy, mild, both eyes ([facility] V24, [facility] V28) 09/13/2023 DX:Non-proliferative diabeti c retinopathy, mild, both eyes ([facility]); COMMENT: Dr. Gamez Type 2 diabetes mellitus wit h eye manifestations ([facility] V24, [facility] V28) 09/13/2023 DX: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[facility]) Family History Medical History Relation Name Comments [...] AM EDT Office Visit Orthopedic Surgery - [place] [address] [facility] [address] [place] [phone] Andreas Smith, DPM [address] [address] Health Maintenance Due Date Last Done Comments [...] Ended) 2025 Depression Screening 05/05/2025 05/05/2024, 03/01/20 23 Falls Risk Assessment 05/05/2025 05/05/2024 Medicare Annual [...] age to complete this topic Meningococcal B Vaccine Aged Out No l onger eligible based on patient's age to complete [...] nephropathy associated with type 2 diabetes mellitus ([facility] V24, [facility] V28) LIPID PANEL WITH REFLEX TO DIRECT LDL [...] mmol/L LAB CHEMISTRY METHOD 06/18/2024 2:26 PM [facility] Blood Venous blood specimen / Unknown Venipuncture / Unknown 06/18/2024 11:13 AM EST 06/18/2024 11:13 AM EST Isaiah Harley MD LAB BLOOD ORDERABLES Dorothea l Result [facility] [address] [place] [address], [place] [phone] * Lipid panel with reflex to direct LDL (2024 10:49 AM EST) Cholesterol 180 0 - 200 mg/dL LAB CHEMISTRY METHOD 2024 3:03 PM [facility] Triglycerides 73 0 - 150 mg/dL LAB CHEMISTRY METHOD 2024 3:03 PM [facility] HDL 65 >=40 mg/dL LAB CHEMISTRY METHOD 2024 3:03 PM [facility] LDL Calculated 100 0 - 100 mg/dL LAB CHEMISTRY METHOD 2024 3:03 PM [facility] VLDL Cholesterol Pavel 14.6 mg/dL LAB CHEMISTRY METHOD 2024 3:03 PM [facility] Non HDL Chol. (LDL+VLDL) 115 <145 mg/dL LAB CHEMISTRY METHOD 2024 3:03 PM [facility] Chol/HDL Ratio 2.8 0.0 - 4.4 LAB CHEMISTRY METHOD 2024 3:03 PM [facility] Blood Venous blood specimen / Unknown Venipuncture / Unknown 2024 10:49 AM EST 2024 10:49 AM EST Isaiah Harley MD LAB BLOOD ORDERABLES Dorothea l Result [facility] [address] [place] [address], [place] [phone] * Hemoglobin A1c (2024 10:49 AM EST) [facility] Hemoglobin A1C 5.9 <6.5 % LAB CHEMISTRY METHOD 2024 9:17 PM [facility] Mean Bld Glu Estim. 123 mg/dL LAB CHEMISTRY METHOD 2024 9:17 PM [facility] Blood Venous blood specimen / Unknown Venipuncture / Unknown 2024 10:49 AM EST 2024 10:49 AM EST Isaiah Harley MD LAB BLOOD ORDERABLES Dorothea l Result [facility] [address] [place] [address], [place] [phone] * (ABNORMAL) Basic metabolic panel (2024 10:49 AM EST) [facility] Sodium 140 133 - 145 mmol/L LAB CHEMISTRY METHOD 2024 2:58 PM [facility] Potassium 3.2(L) 3.5 - 5.5 mmol/L LAB CHEMISTRY METHOD 2024 2:58 PM [facility] Chloride 107 96 - 110 mmol/L LAB CHEMISTRY METHOD 2024 2:58 PM [facility] CO2 28 21 - 32 mmol/L LAB CHEMISTRY METHOD 2024 2:58 PM [facility] Anion Gap 5 3 - 11 LAB CHEMISTRY METHOD 2024 2:58 PM [facility] Glucose 140(H) 70 - 100 mg/dL LAB CHEMISTRY METHOD 2024 2:58 PM [facility] BUN 13 5 - 25 mg/dL LAB CHEMISTRY METHOD 2024 2:58 PM EST [facility] Creatinine 1.07 0.50 - 1.10 mg/dL LAB CHEMISTRY METHOD 2024 2:58 PM EST [facility] eGFR 53(L) >=60 mL/min/1. 73m2 LAB CHEMISTRY METHOD 2024 2:58 PM EST [facility] Comment:Calculation based on the??Chronic Kidney Disease Epidemiology Collaboration (CKD-EPI) equation refit??without adjustment for race. BUN/Creatinine Ratio 12.1 LAB CHEMISTRY METHOD 2024 2:58 PM EST [facility] Calcium 8.8 8.5 - 10.5 mg/dL LAB CHEMISTRY METHOD 2024 2:58 PM EST [facility] Blood Venous blood specimen / Unknown Venipuncture / Unknown 2024 10:49 AM EST 2024 10:49 AM EST Isaiah Harley MD LAB BLOOD ORDERABLES Dorothea l Result [facility] [address] [place] [address], * Diabetes Eye Exam (09/12/2023) [facility] Diabetes: Annual Retina Eye Exam abstracted Historical Provider HEALTH MAINTENANCE Final Result * Depression Screening (03/01/2023) [facility] Depression Screening completed Historical Provider HEALTH MAINTENANCE Final Result * Hepatitis C Screening (02/13/2023) [facility] Hepatitis C Screening negatibve Historical Provider [...] (World Health Organization Fracture Risk Assessment) [facility] Department of Internal Medicine recommends using [...] (World Health Organization Fracture Risk Assessment) [facility] Department of Internal Medicine recommendsusing National [...] PROCEDURES Final Re sult * Colonoscopy (12/02/2013) [facility] Signature Colonoscopy abnormal Anatomical Region Laterality Modality Other Historical Provider HEALTH MAINTENANCE Final Result from Last 3 Months or Most Recently Relevant to Health Maintenance Insurance [place]ICA[place] - [place] MEDICARE Advance Directives Documents on File Type Date Recorded Patient Coach Builder Expl anation Health Care Decision (hx) 09/14/2021 [...] DIRECTIVE Health Care Decision (hx) 08/19/2021 AD COFFMNA DIRECTIVE Health Care Decision (hx) 08/19/2021 AD COFFMAN DIRECTIVE Health Care Decision (hx) 08/19/2021 AD COFFMAN DIRECTIVE Health Care Decision (hx) 08/19/2021 AD COFFMAN DIRECTIVE Care Teams Big 6 Dealer Relationship Specialty Start Date End Date Isaiah Harley MD [address] [place] [phone] PCP - General Internal Medicine 05/03/20
--- OUTSIDE RECORDS SUMMARY | 2024-09-02 12:41 | XMS_ITS | Encounter Summary ---
Author Organization [facility] Address [address] [place] [address] Care Team Providers Care Vessel Ordinary Seaman Name Role Phone Isaiah Harley MD Primary Care Provider [phone] Encounter Details Date Type Department Care Team (Late st Contact Info) Description 02/20/2024 10:49 AM EDT Hospital Encounter TH HISTORIC ENCOUNTERS EASTERN CONVERSION ONLY Katherine Moya MD [address] [place] [phone] Social History Tobacco Use Types Packs/Day Years [...] for your loved ones. For example, child therapist or elderly care for an older [...] is a 78 y.o. female. HPI: 78-year-old -Mal[place]ian female who has multiple medical issues, I [...] unspecified type ANEMIA Patient is a 78-year-old -[place]ian female who has multiple medical issues, I [...] AM EDT Office Visit Orthopedic Surgery - [place] [address] [phone] Andreas Smith DPChau [address] [address] documented as of this encounter Visit Diagnoses Not on filedocumented in this encounter Care Teams Vessel Ordinary Seaman Relationship Specialty Start Date End Date Isaiah Harley MD [address] [place] [address] PCP - General Internal Medicine 05/03/20 documented as of this encounter
--- OUTSIDE RECORDS SUMMARY | 2024-09-02 12:41 | XMS_ITS | Clinical Summary ---
Author Organization [facility] Address [address] [address] Phone Care Team Providers Care Surgical Attendant Name Role Phone Isaiah Bradley Primary Care Provider [phone] Allergies No known active allergies Medications benazepril [...] 01/17/20 13 08/01/2021 Arthritis 01/15/2013 08/01/2021 Immunizations Immunization Administration Dates Next Due [employer] SARS-COV-2 09/14/2021 Pfizer SARS-COV-2 03/27/2022,10/09/2020,09/19/19 21 Family [...] Due Date Last Done Comments Pneumococcal Vaccine: 50+ Years (1 of 2 - PCV) 1964 Diabetes: Ophthalmology Exam 06/18/2020 Diabetes: Pedal Pulse Checked 06/18/2020 Diabetes: Sensory Foot Exam 06/18/2020 Diabetes: Visual Foot Exam 06/18/2020 Diabetes: Hemoglobin A1C 08/20/2024 025, 09/05/2023, 11/12/2020, Additional history exists Influenza Vaccine (Season Ended) 2025 Hepatitis B Vaccine Aged Out No longe [...] 9.2 8.7 - 10.7 mg/dL eGFR Non-Afr Slovak 60 Hemoglobin A1C 7.6(A) 4.0 - 6.0 Triglycerides 75 40 - 160 Cholesterol 218(A) 0 - 200 HDL 75(A) 35 - 70 MG/DL LDL Calculated 128 0 - 160 mg/dL 11/12/2020 Historical Provider LAB BLOOD ORDERABLES Dorothea l Result from Last 3 Months or Most Recently Relevant to Health Maintenance Insurance Medicaid [place] Medicaid [place] Medicare Care Teams Surgical Attendant Relationship Specialty Start Date End Date Isaiah Bradley [address] [place] [address] PCP - General Internal Medicine 08/02/21
--- OUTSIDE RECORDS SUMMARY | 2024-09-02 12:41 | XMS_ITS | Clinical Summary ---
Author Organization [facility] Address [address] [place] [address] Care Team Providers Care Food Editor Name Role Phone Isaiah Harley MD Primary Care Provider [phone] Allergies No known active allergies Medications Medication [...] age to complete this topic Care Teams Food Editor Relationship Specialty Start Date End Date Isaiah Harley MD [address] [place] [address] PCP - General Internal Medicine 07/27/23
== END 2024-09-02 11:19 | disposition home or self-care (01) ==
LOC: HO.HKAS 10:34
PROVIDERS: PCP Internal Medicine; Visit Provider Internal Medicine Nephrology
DX: N18.31 Chronic kidney disease, stage 3a (principal); I10 Essential (primary) hypertension
CPT/HCPCS: 99214

== ENCOUNTER → 2024-09-02 10:34 | Outpatient (BNVA) | payer MEDICARE, MEDICAID, SELFPAY | PROVIDERS: PCP Internal Medicine; Visit Provider Internal Medicine Nephrology | DX: I12.9 Hypertensive chronic kidney disease with stage 1 through stage 4 chronic kidney disease, or unspecified chronic kidney disease (principal); N18.31 Chronic kidney disease, stage 3a; I69.351 Hemiplegia and hemiparesis following cerebral infarction affecting right dominant side | CPT/HCPCS: 99212 ==

== ENCOUNTER 2024-11-18 10:47 | Outpatient (REF) | payer MEDICARE, MEDICAID, SELFPAY ==
--- OUTSIDE RECORDS SUMMARY | 2024-03-21 10:21 | XMS_ITS | Encounter Summary ---
Author Organization [facility] Address [address] [place] [address] Care Team Providers Care Provider Service Representative Name Role Phone Isaiah Harley MD Primary Care Provider [phone] Encounter Details Date Type Department Care Team (Late st Contact Info) Description 03/21/2024 10:21 AM EDT Hospital Encounter TH HISTORIC ENCOUNTERS EASTERN CONVERSION ONLY Katherine Moya MD [address] [place] [phone] Social History Tobacco Use Types Packs/Day Years [...] loved ones. For example, child and family therapist or elderly care for an older adult? [...] HPI: Patient is a very pleasant 78-year-old -Eritrean female who has multiple medical problem including [...] history physical laboratory data this 78-year-old - Eritrean female does not have any significant hematological [...] AM EDT Office Visit Orthopedic Surgery - [place] [address] [phone] Andreas Smith DPM [address] [address] documented as of this encounter Procedures Procedure [...] on filedocumented in this encounter Care Teams Provider Service Representative Relationship Specialty Start Date End Date Isaiah Harley MD [address] [place] [id number] PCP - General Internal Medicine 05/03/20 documented as of this encounter
--- OUTSIDE RECORDS SUMMARY | 2024-11-18 11:59 | XMS_ITS | Encounter Summary ---
Author Organization [facility] Address [address] [place] [address] Care Team Providers Care Director Of Cardiology Service Line Name Role Phone Unavailable Primary Care Provider Unavailabl e Encounter Details Date Type Department Care Team (Late st Contact Info) Description 02/06/2020 Pharmacist Visit [facility] [address] [place] [phone] Katia Thapa, JAC [address] [place] [address] Social History Tobacco Use Types Packs/Day Years [...]
--- OUTSIDE RECORDS SUMMARY | 2024-11-18 12:00 | XMS_ITS | Clinical Summary ---
Author Organization [facility] Address [address] [place] [address] Care Team Providers Care Survey Field Technician Name Role Phone Isaiah Harley MD Primary Care Provider [phone] Allergies No known active allergies Medications Medication [...] 66 03/21/2024 10:56 AM EDT Temperature 37.1 C (98.7 F) 03/21/2024 10:56 AM EDT Respiratory Rate - - Oxygen Saturation 100% [...] 09/14/2021, 10/09/2020, Additional history exists Influenza Vaccine (Season Ended) 2025 Hepatitis B Vaccines Aged Out No long er eligible based on patient's age to complete this topic RSV Ped < 20 months Aged Out No longe r eligible based on patient's age to complete this topic Care Teams Survey Field Technician Relationship Specialty Start Date End Date Isaiah Harley MD [address] [place] [address] PCP - General Internal Medicine 07/27/23
--- OUTSIDE RECORDS SUMMARY | 2024-11-18 12:00 | XMS_ITS | Clinical Summary ---
Author Organization [facility] Address [address] [address] Phone Care Team Providers Care Beverage Distiller Name Role Phone Isaiah Bradley Primary Care Provider [phone] Allergies No known active allergies Medications benazepril [...] 08/01/2021 Immunizations Immunization Administration Dates Next Due Must See [place] SARS-COV-2 09/14/2021 Pfizer SARS-COV-2 03/27/2022,10/09/2020,09/19/19 21 Family [...] 9.2 8.7 - 10.7 mg/dL eGFR Non-Afr Luxembourger 60 Hemoglobin A1C 7.6(A) 4.0 - 6.0 Triglycerides 75 40 - 160 Cholesterol 218(A) 0 - 200 HDL 75(A) 35 - 70 MG/DL LDL Calculated 128 0 - 160 mg/dL 11/12/2020 Historical Provider LAB BLOOD ORDERABLES Dorothea l Result from Last 3 Months or Most Recently Relevant to Health Maintenance Insurance Medicaid [place] Medicare Care Teams Beverage Distiller Relationship Specialty Start Date End Date Isaiah Bradley [address] [place] [address] PCP - General Internal Medicine 08/02/21
[2024-11-18 15:13] LABS: Anion Gap 12 (12-20); Blood Urea Nitrogen 13 mg/dL (9-16); Carbon Dioxide 24 mmol/L (22-29); Chloride 109 mmol/L (96-108); Estimated Glomerular Filt Rate 51; Potassium 3.0 mmol/L (3.3-5.1); Sodium 142 mmol/L (135-145)
== END 2024-11-18 10:48 | disposition home or self-care (01) ==
LOC: HO.HKASLDS 10:47
PROVIDERS: Visit Provider Internal Medicine Nephrology
DX: E87.6 Hypokalemia (principal); I12.9 Hypertensive chronic kidney disease with stage 1 through stage 4 chronic kidney disease, or unspecified chronic kidney disease; N18.31 Chronic kidney disease, stage 3a
CPT/HCPCS: 36415; 80051; 82565; 84520

== ENCOUNTER → 2024-11-19 12:13 | Outpatient (BNV) | payer MEDICARE, MEDICAID, SELFPAY | PROVIDERS: PCP Internal Medicine; Visit Provider Physical Medicine & Rehabilitation | DX: G81.10 Spastic hemiplegia affecting unspecified side (principal); I69.351 Hemiplegia and hemiparesis following cerebral infarction affecting right dominant side | CPT/HCPCS: 64643; 64644; 95874 ==

== ENCOUNTER 2024-11-19 13:53 | Outpatient (REF) | payer MEDICARE, MEDICAID, SELFPAY ==
--- OUTSIDE RECORDS SUMMARY | 2024-03-21 10:21 | XMS_ITS | Encounter Summary ---
Author Organization [facility] Address [address] [place] [address] Care Team Providers Care Requirements Engineer Name Role Phone Isaiah Harley MD Primary Care Provider [phone] [phone] Encounter Details Date Type Department Care Team (Late st Contact Info) Description 03/21/2024 10:21 AM EDT Hospital Encounter TH HISTORIC ENCOUNTERS EASTERN CONVERSION ONLY Katherine Moya MD [address] [place] [phone] Social History Tobacco Use Types Packs/Day Years [...] for your loved ones. For example, child nutrition assistant or elderly care for an older adult? [...] HPI: Patient is a very pleasant 78-year-old -British female who has multiple medical problem including [...] history physical laboratory data this 78-year-old - British female does not have any significant hematological [...] AM EDT Office Visit Orthopedic Surgery - [place] [address] [phone] Andreas Smith DPM [address] [address] documented as of this encounter Procedures Procedure [...] on filedocumented in this encounter Care Teams Requirements Engineer Relationship Specialty Start Date End Date Isaiah Harley MD [address] [place] [address] PCP - General Internal Medicine 05/03/20 documented as of this encounter
--- NOTE | ~2024-11-19 | XR_ITS ---
EXAMINATION: XR KNEE, RIGHT CLINICAL INFORMATION: G81.10 - Spastic hemiplegia affecting unspecified side COMPARISON: None available. TECHNIQUE: AP and lateral of the right knee. FINDINGS: There is severe narrowing and irregularity of the medial joint space. There is mild narrowing and irregularity of the lateral joint space. There is diffuse osteopenia. There is a large bony exostosis involving the superior pole patella. Small amount joint fluid is visible. There is moderate vascular calcifications. XR/XR knee RT 2V IMPRESSION: Severe osteoarthritis. Bony exostosis is present on the posterior superior pole patella of uncertain significance. Osteochondroma is not ruled out. It could also be remote posttraumatic. Borderline joint effusion. Osteopenia. IMPRESSION: Normal right knee. Electronically signed by: Bob Cavazos MD 11/19/2024 03:56 PM EDT
--- NOTE | 2024-11-19 12:13 | EMG_ITS ---
PROCEDURE PERFORMED: Botulinum toxin chemodenervation DIAGNOSIS:? Spastic hemiparesis affecting dominant side? G81.10 Hemiparesis affecting right side as late effect of cerebrovascular accident? I69.351 INDICATION: spastic muscles? PREVIOUS TREATMENT AND RESPONSE: Oral antispasticity medications and physical therapy without response Botulinum toxin injection 07/23/2024 EXAM ON 08/21/24: No more cogwheeling on right elbow, up to -20 degrees extension lag now, Tio 1 Right wrist flexion - still -30 degrees from neutral. Tio 2. Noted more pronation. 2nd and 4th PIP joints tend to flex. Right knee can fully extend, Tio 0. Right knee crepitus and patient complains of pain on right knee. TOXIN USED: Botox PROCEDURE: The procedure was explained to the patient/caregiver, and informed consent was obtained. The patient laid down on bed. Right arm and leg were cleansed with betadine in the usual sterile manner. A 26 gauge needle electrode was used.? Muscle Units per site Number of sites Units per muscle Right brachialis 50 2 100 Right brachioradialis 50 2 100 Right PT 50 1 50 Right FCR 50 1 50 Right FDSP 50 1 50 Right MH 50 1 50 Right Rectus 50 2 100 EMG-guidance was used during the injection. A total of 500 units injected. 0 units wastage. Vial size: 100 units per vial Dilution: 100 units per 2 ml of preservative free saline The patient tolerated the procedure well without complications. The patient was observed for 30 minutes, before being discharged with post procedure instructions. CODING: CPT code: 94722 1 ext, 5 or more muscles 81537 each add?l limb, 1-4 muscles Wastage: None Guidance code: 95718 EMG guidance for chemodenervation J code: Botox J0585 [facility] code: 1895-1829-29 Lot #: [id number] 4 vials, [id number] Expiration date: 4 vials, MTDD
--- OUTSIDE RECORDS SUMMARY | 2024-11-19 14:28 | XMS_ITS | Clinical Summary ---
Author Organization [facility] Address [address] [place] [address] Care Team Providers Care Master Fisher Name Role Phone Isaiah Harley MD Primary Care Provider [phone] Allergies No known active allergies Medications Medication [...] age to complete this topic Care Teams Master Fisher Relationship Specialty Start Date End Date Isaiah Harley MD [address] [place] [address] PCP - General Internal Medicine 07/27/23
--- OUTSIDE RECORDS SUMMARY | 2024-11-19 14:28 | XMS_ITS | Encounter Summary ---
Author Organization [facility] Address [address] [place] [address] Care Team Providers Care Bailing Machine Operator Name Role Phone Unavailable Primary Care Provider Unavailabl e Encounter Details Date Type Department Care Team (Late st Contact Info) Description 02/06/2020 Pharmacist Visit [facility] [address] [place] [phone] Katia Thapa, JAC [address] [place] [address] Social History Tobacco Use Types Packs/Day Years [...]
--- OUTSIDE RECORDS SUMMARY | 2024-11-19 14:28 | XMS_ITS | Clinical Summary ---
Author Organization [facility] Address [address] [address] Phone Care Team Providers Care Distribution District Supervisor Name Role Phone Isaiah Bradley Primary Care Provider [phone] Allergies No known active allergies Medications benazepril [...] 08/01/2021 Immunizations Immunization Administration Dates Next Due [employer] SARS-COV-2 09/14/2021 Pfizer SARS-COV-2 03/27/2022,10/09/2020,09/19/19 21 Family [...] 9.2 8.7 - 10.7 mg/dL eGFR Non-Afr Ethiopian 60 Hemoglobin A1C 7.6(A) 4.0 - 6.0 Triglycerides 75 40 - 160 Cholesterol 218(A) 0 - 200 HDL 75(A) 35 - 70 MG/DL LDL Calculated 128 0 - 160 mg/dL 11/12/2020 Historical Provider LAB BLOOD ORDERABLES Dorothea l Result from Last 3 Months or Most Recently Relevant to Health Maintenance Insurance Medicaid [place] Medicare Care Teams Distribution District Supervisor Relationship Specialty Start Date End Date Isaiah Bradley [address] [place] [address] PCP - General Internal Medicine 08/02/21
== END 2024-11-19 13:54 | disposition home or self-care (01) ==
LOC: HO.NEURO 13:53
PROVIDERS: PCP Internal Medicine; Visit Provider Physical Medicine & Rehabilitation
DX: R25.2 Cramp and spasm (principal); I69.351 Hemiplegia and hemiparesis following cerebral infarction affecting right dominant side; M17.11 Unilateral primary osteoarthritis, right knee
CPT/HCPCS: 64643; 64644; 73560; 95874; J0585

== ENCOUNTER → 2024-11-19 14:43 | Outpatient (BNV) | payer MEDICARE, MEDICAID, SELFPAY | PROVIDERS: PCP Internal Medicine; Visit Provider Radiology Diagnostic Radiology | DX: M17.11 Unilateral primary osteoarthritis, right knee (principal) | CPT/HCPCS: 73560 ==

== ENCOUNTER 2024-12-02 11:03 | Outpatient (REF) | payer MEDICARE, MEDICAID, SELFPAY | END 2024-12-02 11:04 | disposition home or self-care (01) | LOC: HO.HKASLDS 11:03 | PROVIDERS: PCP Internal Medicine; Visit Provider Internal Medicine Nephrology | DX: I12.9 Hypertensive chronic kidney disease with stage 1 through stage 4 chronic kidney disease, or unspecified chronic kidney disease (principal); N18.31 Chronic kidney disease, stage 3a; E87.6 Hypokalemia; I69.351 Hemiplegia and hemiparesis following cerebral infarction affecting right dominant side | CPT/HCPCS: 99212 ==

== ENCOUNTER 2024-12-02 11:03 | Outpatient (AMB) | payer MEDICARE, MEDICAID, SELFPAY ==
--- OUTSIDE RECORDS SUMMARY | 2024-03-21 10:21 | XMS_ITS | Encounter Summary ---
Author Organization [facility] Address [address] [place] [address] Care Team Providers Care Nurse Assistant Name Role Phone Isaiah Harley MD Primary Care Provider [phone] [phone] Encounter Details Date Type Department Care Team (Late st Contact Info) Description 03/21/2024 10:21 AM EDT Hospital Encounter TH HISTORIC ENCOUNTERS EASTERN CONVERSION ONLY Katherine Moya MD [address] [place] [phone] Social History Tobacco Use Types Packs/Day Years [...] for your loved ones. For example, children's tutor or elderly care for an older adult? [...] Date Recorded What is your living situation? 1 07/06/2023 Comments No Sex and Gender Information Value [...] HPI: Patient is a very pleasant 78-year-old -Congolese female who has multiple medical problem including [...] history physical laboratory data this 78-year-old - Congolese female does not have any significant hematological [...] Care Team (Late st Contact Info) Description 01/08/2025 10:15 AM EDT Office Visit Orthopedic Surgery - [place] [address] [phone] Andreas Smith DPM [address] [address] documented as of this encounter Procedures Procedure Name Priority Date/Time Associated Diagnosis Comments ..MISCELLANEOUS REFERENCE LAB TEST 03/21/2024 ..MISCELLANEOUS REFERENCE LAB TEST 03/21/2024 documented in this encounter Results * Miscellaneous reference lab test (03/21/2024) us Provider Onbase MD LAB BLOOD ORDERABLES Final Re sult * Miscellaneous reference lab test (03/21/2024) us Provider Onbase MD LAB BLOOD ORDERABLES Final Re sult documented in this encounter Visit Diagnoses Not on filedocumented in this encounter Care Teams Nurse Assistant Relationship Specialty Start Date End Date Isaiah Harley MD [address] [place] [address] PCP - General Internal Medicine 05/03/20 documented as of this encounter
--- NOTE | 2024-12-02 11:24 | HO.NEPHOV_ITS ---
Vital Signs 12/02/24 11:27 Height 5 ft 5 in BMI Reason not done Patient refused/unable BP 148/60 H Blood Pressure Location Lt brachial Position Sitting Pulse 67 Pulse Source Pulse Oximeter Pulse Oximetry (%) 98 Oxygen Delivery Method Room Air Intake Visit Reasons: 3mon follow-up w/labs-LVM Printing Equipment Mechanic Required: No Accompanied by: Son Allergies No Known Allergies Allergy (Verified 12/02/24 11:24) HPI Comments Details: Delaney was seen for management of her history of CKD and hypertension. She has had CVA with right hemiparesis. She has history of seizures and has been on Keppra. She has history of aortic stenosis and was evaluated for TAVR. She was deemed not to be a candidate for TAVR in the past. She regularly follows up cardiology. She has history of congestive heart failure. She is on multiple antihypertensive medications along with statins. She has history of adrenal hyperplasia seen on MRI and is going to be followed by an mail distribution clerk. She has history of anemia and pancreatic cyst. She has had colonic polyps and is due colonoscopy in 2024. She also has history of to pancreatic cyst his which was deemed not to be high risk for malignancy and Gastroenterology is closely following it up. She denies any chest pain, shortness of breath, proximal nocturnal dyspnea, orthopnea or orthostatic symptoms. Her last serum creatinine has been stable. [facility] Medical History (Updated 05/30/24 @ 11:48 by Ashley Contreras MD) Seizure Hypersomnia Snoring Polyp of colon Aortic stenosis Essential (primary) hypertension History of radioactive iodine thyroid ablation DM (diabetes mellitus), type 2 with renal complications Chronic pain of both knees Stasis dermatitis of both legs Goiter Carpal tunnel syndrome, bilateral DM (diabetes mellitus), type 2 with neurological complications Microalbuminuria Hyperlipidemia CHF (congestive heart failure) Insomnia Aphasia Hemiparesis History of CVA with residual deficit Chronic kidney disease (CKD) Nonischemic cardiomyopathy History of RI (myocardial infarction) Epileptic disorder Adrenal hyperplasia High plasma von Willebrand factor (vWF) Surgical History S/P cardiac cath Family History Son Hypertension Social History Current occupational status: disabled Current occupation: rt handed Review of Systems Const All systems reviewed & are unremarkable except as noted in HPI and below Physical Exam Vital Signs: Last Vital Signs Pulse 67 12/02/24 11:27 BP 148/60 H 12/02/24 11:27 Pulse Ox 98 12/02/24 11:27 Oxygen Delivery Method Room Air 12/02/24 11:27 Const General: comfortable and no acute distress Orientation/consciousness: patient oriented x3 HEENT Head: Yes normocephalic Mouth: Normal oral and palatal mucosa present Eyes EOM: EOMs intact bilaterally Neck Neck: Yes supple Resp Auscultation: clear to auscultation bilaterally Cardio Jugular venous distension: no JVD Rate: regular rate GI Palpation (GI): Soft to palpation Auscultation: normal bowel sounds General: Yes no CVA tenderness Back/Spine/Pelvis Back: no CVA tenderness Skin General skin exam: no rashes or lesions noted Neuro General: patient oriented x3 Extrem General: Yes no pedal edema Results Reviewed Nephrology Results: Sodium, (135-145) 142 mmol/L 11/18/24 Potassium, (3.3-5.1) 3.0 mmol/L L 11/18/24 Chloride, (96-108) 109 mmol/L H 11/18/24 Carbon Dioxide, (22-29) 24 mmol/L 11/18/24 BUN, (9-16) 13 mg/dL 11/18/24 Creatinine, (0.5-1.4) 1.05 mg/dL 11/18/24 Assessment & Plan Assessment & Plan (1) CKD stage 3a, GFR 45-59 ml/min: Code(s): N18.31 - Chronic kidney disease, stage 3a Category: Medical (2) Hypokalemia: Code(s): E87.6 - Hypokalemia Category: Medical (3) Essential (primary) hypertension: Code(s): I10 - Essential (primary) hypertension Category: Medical (4) Hemiparesis affecting right side as late effect of cerebrovascular accident: Code(s): I69.351 - Hemiplegia and hemiparesis following cerebral infarction affecting right dominant side Category: Medical Plan Delaney has longstanding hypertension with cardiomyopathy and history of CVA with a residual right hemiparesis. She has a diabetic. She has history of hy pokalemia and I increased her spironolactone to 100 mg daily which should control her serum potassium and blood pressure especially given history of cardiomyopathy. She needs to follow-up with her mail distribution clerk and needs labs to check for her adrenal issues. Her blood sugar needs to be maintained at goal. She needs to maintain good hydration and minimize salt in the diet. She should not take any nonsteroidal anti-inflammatories. All these have been discussed in detail. Answered all questions. Follow-up appointment given Orders: Orders Creatinine 4 Months E87.6 - Hypokalemia, N18.31 - Chronic kidney disease, stage 3a Blood Urea Nitrogen 4 Months E87.6 - Hypokalemia, N18.31 - Chronic kidney disease, stage 3a Creatinine Today E87.6 - Hypokalemia, I10 - Essential (primary) hypertension, N18.31 - Chronic kidney disease, stage 3a Electrolytes 4 Months E87.6 - Hypokalemia, N18.31 - Chronic kidney disease, stage 3a Electrolytes Today E87.6 - Hypokalemia, I10 - Essential (primary) hypertension, N18.31 - Chronic kidney disease, stage 3a Blood Urea Nitrogen Today E87.6 - Hypokalemia, I10 - Essential (primary) hypertension, N18.31 - Chronic kidney disease, stage 3a Medications: New spironolactone 100 mg PO DAILY 90 tabs 4RF Discontinued potassium chloride ER Discontinued Reason: Doctor's Order 20 mEq (2 x 10 mEq) PO DAILY 5 days 10 caps 0RF Coding Level of Care Code Est Pt Level 4 (17711) Diagnoses CKD stage 3a, GFR 45-59 ml/min N18.31 Hypokalemia E87.6 Essential (primary) hypertension I10 Hemiparesis affecting right side as late effect of cerebrovascular accident I69.351
[2024-12-02 11:27] VITALS: BP 148/60; PULSE 67; O2SAT 98
--- OUTSIDE RECORDS SUMMARY | 2024-12-02 12:27 | XMS_ITS | Encounter Summary ---
Author Organization [facility] Address [address] [place] [address] Care Team Providers Care Platinumsmith Name Role Phone Unavailable Primary Care Provider Unavailabl e Encounter Details Date Type Department Care Team (Late st Contact Info) Description 02/06/2020 Pharmacist Visit [facility] [address] [place] [phone] aKtia Thapa, JAC [address] [place] [address] Social History Tobacco Use Types Packs/Day Years [...]
--- OUTSIDE RECORDS SUMMARY | 2024-12-02 12:27 | XMS_ITS | Clinical Summary ---
Author Organization [facility] Address [address] [address] Phone Care Team Providers Care [place] Boatman Name Role Phone Isaiah Bradley Primary Care Provider [phone] Allergies No known active allergies Medications benazepril [...] 08/01/2021 Immunizations Immunization Administration Dates Next Due RELEASEIF SARS-COV-2 09/14/2021 Pfizer SARS-COV-2 03/27/2022,10/09/2020,09/19/19 21 Family [...] 09/05/2023, 11/12/2020, Additional history exists Influenza Vaccine (#1) 2025 Hepatitis B Vaccine Aged Out No [...] 9.2 8.7 - 10.7 mg/dL eGFR Non-Afr Guyanese 60 Hemoglobin A1C 7.6(A) 4.0 - 6.0 Triglycerides 75 40 - 160 Cholesterol 218(A) 0 - 200 HDL 75(A) 35 - 70 MG/DL LDL Calculated 128 0 - 160 mg/dL 11/12/2020 Historical Provider LAB BLOOD ORDERABLES Dorothea l Result from Last 3 Months or Most Recently Relevant to Health Maintenance Insurance Medicaid [place] Medicaid [place] Medicare Care Teams [place] Boatman Relationship Specialty Start Date End Date Isaiah Bradley [address] [place] [phone] PCP - General Internal Medicine 08/02/21
--- OUTSIDE RECORDS SUMMARY | 2024-12-02 12:27 | XMS_ITS | Clinical Summary ---
Author Organization [facility] Address [address] [place] [address] Care Team Providers Care Sales Consulting Director Name Role Phone Isaiah Harley MD Primary Care Provider [phone] Allergies No known active allergies Medications Medication [...] 10/09/2020, Additional history exists Influenza Vaccine (#1) 2025 Hepatitis B Vaccines Aged Out No long er eligible based on patient's age to complete this topic RSV Ped < 20 months Aged Out No longe r eligible based on patient's age to complete this topic Care Teams Sales Consulting Director Relationship Specialty Start Date End Date Isaiah Harley MD [address] [place] [phone] PCP - General Internal Medicine 07/27/23
== END 2024-12-02 12:12 | disposition home or self-care (01) ==
LOC: HO.HKAS 11:04
PROVIDERS: PCP Internal Medicine; Visit Provider Internal Medicine Nephrology
DX: N18.31 Chronic kidney disease, stage 3a (principal); E87.6 Hypokalemia; I10 Essential (primary) hypertension; I69.351 Hemiplegia and hemiparesis following cerebral infarction affecting right dominant side
CPT/HCPCS: 99214

== ENCOUNTER 2024-12-23 10:38 | Outpatient (REF) | payer MEDICARE, MEDICAID, SELFPAY ==
--- OUTSIDE RECORDS SUMMARY | 2024-03-21 10:21 | XMS_ITS | Encounter Summary ---
Author Organization [facility] Address [address] [place] [address] Care Team Providers Care Spool Maker Name Role Phone Isaiah Harley MD Primary Care Provider [phone] [phone] Encounter Details Date Type Department Care Team (Late st Contact Info) Description 03/21/2024 10:21 AM EDT Hospital Encounter TH HISTORIC ENCOUNTERS EASTERN CONVERSION ONLY Katherine Moya MD [address] [place] [phone] Social History Tobacco Use Types Packs/Day Years [...] for your loved ones. For example, child and family counselor or elderly care for an older adult? [...] HPI: Patient is a very pleasant 78-year-old -[place] Citizen female who has multiple medical problem including [...] history physical laboratory data this 78-year-old - [place] Citizen female does not have any significant hematological [...] Care Team (Late st Contact Info) Description 12/25/2024 10:30 AM EDT Office Visit Internal Medicine - [address] [phone] Sasha Bonner NP 305 [place] [address] 01/08/2025 10:15 AM EDT Office Visit Orthopedic Surgery - [place] [address] [place] [address] [place] [phone] Andreas Smith DPM 175 [facility] [address] [place] [address] documented as of this encounter Procedures Procedure Name Priority Date/Time Associated Diagnosis Comments ..MISCELLANEOUS REFERENCE LAB TEST 03/21/2024 ..MISCELLANEOUS REFERENCE LAB TEST 03/21/2024 documented in this encounter Results * Miscellaneous reference lab test (03/21/2024) Provider Onbase MD LAB BLOOD ORDERABLES Final Re sult * Miscellaneous reference lab test (03/21/2024) Provider Onbase MD LAB BLOOD ORDERABLES Final Re sult documented in this encounter Visit Diagnoses Not on filedocumented in this encounter Care Teams Spool Maker Relationship Specialty Start Date End Date Isaiah Harley MD [address] [place] [address] PCP - General Internal Medicine 05/03/20 documented as of this encounter
--- OUTSIDE RECORDS SUMMARY | 2024-12-22 07:48 | XMS_ITS | Continuity of Care Document ---
Author Organization [facility] Address [address] [place] [address]- Care Team Providers Care Systems Support Specialist Name Role Phone Cricket SOLIS, Isaiah Primary Care Physician Encounter [facility] [id number] Date(s): 10/23/24 - 12/22/[address] [address]- Encounter Diagnosis Hemiplegia and hemiparesis following cerebral infarction affecting right dominant side(Final) - Discharge Disposition: A-D/C Home Attending Physician: Isaiah Harley MD Admitting Physician: Isaiah Harley MD Referring Physician: Isaiah Harley MD Encounter Type: Disch Recurring OP Allergies, Adverse Reactions, Alerts No Known Allergies [...] 2:13:00 PM EST, Route to Pharmacy Electronically, [facility]/pharmacy #[id number], Partial fill upon patient request if the [...] 0 Refills, Maintenance, 07/30/23 9:13:00 AM EDT, [facility] STORE [id number], 178, cm, 05/17/23 3:27:00 EST, Height, 64, [...] Date: 10/29/22 Status: Ordered Repeat number: 1 spironolactone 50 mg oral tablet TAKE 1 TABLET BY MOUTH EVERY DAY Start Date: 08/05/24 Status: Ordered Repeat number: 1 valsartan 160 mg oral tablet 160 mg, 1, tablet, By Mouth, Daily Start Date: 10/29/22 Status: Ordered Repeat number: 1 Patient Care team information Care Team Personnel Name: Joshua Schmid Position: S Associate Professional Member Role: Lifetime Consulting Provider Address: [address] [place] [address] [address] [facility] [place] [place] [address]- Telecom: Name: Yanique Carrero RN Position: [facility] RN Member Role: Primary Care Nurse Name: Janet Durham RN Position: [facility] RN Supv Member Role: Primary Care Nurse Name: Cathy Quesada RN Position: S RN Member Role: Primary Care Nurse Name: Aliza Martinez RN Position: [facility] Hospital Classified Copy Control Clerk Member Role: Primary Care Nurse Name: Isaiah Harley MD Position: [facility] Outreach Member Role: PCP Address: [address] [place], [place] [address] Telecom: Name: Linda Gonzalez RN Position: [facility] RN Member Role: Primary Care Nurse Name: Kylee Do RN Position: [facility] RN Member Role: Primary Care Nurse Name: Yanelis Cabrera RN Position: [facility] RN Supv Member Role: Primary Care Nurse Name: Kayleigh Rojo RN Position: [facility] RN Member Role: Primary Care Nurse Name: Jina Donald RN Position: [facility] RN Member Role: Primary Care Nurse Name: Pinky Kinsey RN Position: [facility] RN Member Role: Primary Care Nurse Name: Malena Fajardo RN Position: [facility] RN Member Role: Primary Care Nurse Name: Jeff James MD Position: [facility] Outreach Member Role: Lifetime Consulting Physician Address: [address] [facility] [address] [facility] [place], [place] [address] Telecom: Name: Yoseph Faye RN Position: [facility] RN Member Role: Primary Care Nurse Name: Zuleika Ruelas RN Position: [facility] RN Member Role: Primary Care Nurse Name: Lore Cabrera RN Position: [facility] RN Member Role: Primary Care Nurse Name: Noman Avitia Position: [facility] RN Member Role: Primary Care Nurse Care Team Related Persons Name: NERISSA NELSON Insurance Providers Guarantor name: LUCIANO NELSON [facility] Information #: 1 Payer: MEDICARE B Payer Identifier: DERICK Member Number: [id number] Group Number: NA Subscriber Identifier: [id number] Relationship to Subscriber: self Coverage Type: NA Coverage Verification Date: NA Telecom: NA Address: NA Health Plan Information #: 2 Payer: [employer] Payer Identifier: DERICK Member Number: [id number] Group Number: [id number] Subscriber Identifier: [id number] Relationship to Subscriber: self Coverage Type: MEDICAID Coverage Verification Date: DERICK Telecom: DERICK Address: DERICK
--- OUTSIDE RECORDS SUMMARY | 2024-12-23 11:20 | XMS_ITS | Clinical Summary ---
Author Organization [facility] Address [address] [address] Phone Care Team Providers Care Customer Complaint Clerk Name Role Phone Isaiah Bradley Primary Care Provider [phone] Allergies No known active allergies Medications benazepril [...] 08/01/2021 Immunizations Immunization Administration Dates Next Due Eyeonix SARS-COV-2 09/14/2021 Pfizer SARS-COV-2 03/27/2022,10/09/2020,09/19/19 21 Family [...] 9.2 8.7 - 10.7 mg/dL eGFR Non-Afr Micronesian 60 Hemoglobin A1C 7.6(A) 4.0 - 6.0 Triglycerides 75 40 - 160 Cholesterol 218(A) 0 - 200 HDL 75(A) 35 - 70 MG/DL LDL Calculated 128 0 - 160 mg/dL 11/12/2020 Historical Provider LAB BLOOD ORDERABLES Dorothea l Result from Last 3 Months or Most Recently Relevant to Health Maintenance Insurance Medicaid [place] Medicaid [place] Medicare Care Teams Customer Complaint Clerk Relationship Specialty Start Date End Date Isaiah Bradley [address] [place] [id number] PCP - General Internal Medicine 08/02/21
--- OUTSIDE RECORDS SUMMARY | 2024-12-23 11:20 | XMS_ITS | Clinical Summary ---
Author Organization [facility] Address [address] [facility] [address] [place] [address] Phone Care Team Providers Care Director Of Mobile Marketing Name Role Phone Isaiah Harley MD Primary Care Provider [phone] Allergies No known active allergies Medications spironolactone (ALDACTONE) 50 MG tablet Take 1.5 tablets by mouth every morning. 07/26/2024 Active valsartan (DIOVAN) 160 MG tablet Take 160 mg by mouth daily. 07/31/2023 Active amLODIPine (NORVASC) 10 MG tablet Take 10 mg by mouth daily. Active aspirin-dipyrida mole (AGGRENOX) 25-200 mg per 12 hr capsule Take 1 capsule by mouth 2 (two) times a day. 06/22/2023 Active atorvastatin (LIPITOR) 80 MG tablet Take 80 mg by mouth daily. 02/28/2023 Active levETIRAcetam (KEPPRA) 500 MG tablet Take 500 mg by mouth 2 (two) times a day. 07/30/2023 Active labetaloL (TRANDATE) 300 MG tablet Take 1 tablet by mouth 3 (three) times a day. 08/04/2024 Active hydrALAZINE (APRESOLINE) 100 MG tablet Take 1 tablet by mouth 3 (three) times a day. 07/06/2023 Active dexAMETHasone (DECADRON) 1 MG tabletIndication s:Adrenal hyperplasia 1 tab orally once at 11 pm 1 tablet 08/12/2024 Active Active Problems Problem Noted Date Diagnosed Date Adrenal hyperplasia 08/12/2024 Assessment & Plan (08/12/2024 12:47 PM EDT): Bilateral adrenal hyperplasia as incidental finding on MRI abdomen. Has been following w/ renal & is on spironolactone, etc. BP appears well controlled. ? Has been evaluated for hyperaldosteronism? Will call for records from renal & our old office. Will do low dose dex suppression test to look for evidence of hypercortisolism. History of VT (myocardial infarction) 02/08/2023 Overview (08/12/2024): 2/ hemorrhagic shock 10/2022 Anemia 11/12/2022 Hemiplegia affecting right dominant side 023 CHF (congestive heart failure) 10/06/2021 History of CVA with residual deficit 10/06/2021 Overview (08/12/2024): 08/2021; Aphasia, right hemiparesis Multiple acute and [...] a decision made during her last hospitalization. Dyslipidemia 05/19/2013 Multinodular goiter 01/16/2013 Assessment & Plan (08/12/2024 12:48 PM EDT): Longstanding, s/p DISLA for hyperthyroidism. No compressive symptoms. Last TSH mildly high. Not on medication. Will call for records & determine if needs any follow up short of monitoring exam/TFTs. Arthritis 01/15/2013 Diabetes mellitus 01/15/2013 Assessment & Plan (08/12/2024 12:48 PM EDT): Appears well controlled, off of medications. Essential hypertension 01/15/2013 Overview (08/12/2024): Last Assessment & Plan: Blood pressure under excellent control with a reading today of 112/70. Continue with amlodipine, valsartan, hydralazine and labetalol as prescribed. Social History Tobacco Use Types Packs/Day Years Used Date Smoking Tobacco: Never Smokeless Tobacco: Never Tobacco Cessation:Counseling Given: Not Answered Alcohol Use Standard Drinks/Week Comments Not Currently 0 (1 standard drink = 0.6 oz pur e alcohol) Education Answer Date Recorded Are you interested in more education? Not on raghav e 11/08/2023 Are you concerned about learning? Not on file 11/08/2023 No 11/08/2023 No 11/08/2023 Digital Access Answer Date Recorded No 11/08/2023 No 11/08/2023 Reliable internet access at home? Not on file 11/08/2023 Device with a working camera? Not on file Comments Unknown Sex and Gender Information Value Date Recorded Sex Assigned at Not on file Legal Sex Female 4:19 PM EDT Gender Identity Not on file Sexual Orientation Not on file Last Filed Vital Signs Vital Sign Reading Time Taken Comments Blood Pressure 118/66 08/12/2024 10:52 AM EDT Pulse 65 08/12/2024 10:52 AM EDT Temperature - - Respiratory Rate 21 08/12/2024 10:52 AM EDT Oxygen Saturation 98% 08/12/2024 10:52 AM EDT Inhaled Oxygen Concentration - - Weight - - Height - - Body Mass Index - - Plan of Treatment Health Maintenance Due Date Last Done Comments Adult Td,Tdap Booster 1945 CREATININE LEVEL 1946 DEPRESSION SCREENING 1958 HEPATITIS C SCREENING 1964 PNEUMOCOCCAL VACCINES (50+ y ears) (1 of 2 - PCV) 1965 SMOKING STATUS SCREENING (On ce After 26 Yrs) 1972 ZOSTER VACCINES (1 of 2) 1996 OSTEOPOROSIS SCREENING INITI AL (ONE-TIME) 2011 RSV VACCINE (1 - 1-dose 75+ series) 2021 COVID-19 VACCINE (2023-2 5 season) 2024 DIABETIC EYE EXAM 08/12/2024 HEMOGLOBIN A1C 11/19/2024 2024 BLOOD PRESSURE 02/12/2025 08/12/2024 POTASSIUM LEVEL 06/18/2025 06/18/2024 HEPATITIS A VACCINES Aged Out No long er eligible based on patient's age to complete this topic HIB VACCINES Aged Out No longer eligi ble based on patient's age to complete this topic MENINGOCOCCAL VACCINES (ACWY) Aged Out No longer eligible based on patient's age to complete this topic MENINGOCOCCAL VACCINES (B) Aged Out N o longer eligible based on patient's age to complete this topic Medical Devices Not on file Insurance MEDICARE PART A & B [employer] MEDICARE PART A & B [place] & B [facility] MEDICARE PART A & B [facility] Care Teams Director Of Mobile Marketing Relationship Specialty Start Date End Date Isaiah Harley MD [address] [place] [id number] PCP - General Internal Medicine 08/12/24 Additional Source Comments The information contained in this document represents components of the legal health record. It is not the complete legal health record.[facility]
--- OUTSIDE RECORDS SUMMARY | 2024-12-23 11:20 | XMS_ITS | Encounter Summary ---
Author Organization [facility] Address [address] [place] [address] Care Team Providers Care Payroll And Benefits Assistant Name Role Phone Unavailable Primary Care Provider Unavailabl e Encounter Details Date Type Department Care Team (Late st Contact Info) Description 02/06/2020 Pharmacist Visit [facility] [address] [place] [phone] Katia Thapa, JAC [address] [place] [address] Social History Tobacco Use Types Packs/Day Years [...]
--- OUTSIDE RECORDS SUMMARY | 2024-12-23 11:20 | XMS_ITS | Clinical Summary ---
Author Organization [facility] Address [address] [place] [address] Care Team Providers Care Yarn Twister Name Role Phone Isaiah Harley MD Primary Care Provider [phone] Allergies No known active allergies Medications Medication [...] age to complete this topic Care Teams Yarn Twister Relationship Specialty Start Date End Date Isaiah Harley MD [address] [place] [id number] PCP - General Internal Medicine 07/27/23
[2024-12-23 14:00] LABS: Anion Gap 11 (12-20); Blood Urea Nitrogen 17 mg/dL (9-16); Carbon Dioxide 26 mmol/L (22-29); Chloride 107 mmol/L (96-108); Estimated Glomerular Filt Rate 48; Potassium 3.3 mmol/L (3.3-5.1); Sodium 141 mmol/L (135-145)
== END 2024-12-23 10:39 | disposition home or self-care (01) ==
LOC: HO.HKASLDS 10:38
PROVIDERS: Visit Provider Internal Medicine Nephrology
DX: I12.9 Hypertensive chronic kidney disease with stage 1 through stage 4 chronic kidney disease, or unspecified chronic kidney disease (principal); N18.31 Chronic kidney disease, stage 3a; E87.6 Hypokalemia
CPT/HCPCS: 36415; 80051; 82565; 84520

== ENCOUNTER 2024-12-26 10:04 | Outpatient (AMB) | payer MEDICARE, MEDICAID, SELFPAY ==
--- OUTSIDE RECORDS SUMMARY | 2024-03-21 10:21 | XMS_ITS | Encounter Summary ---
Author Organization [facility] Address [address] [place] [address] Care Team Providers Care Systems Planner Name Role Phone Isaiah Harley MD Primary Care Provider [phone] [phone] Encounter Details Date Type Department Care Team (Late st Contact Info) Description 03/21/2024 10:21 AM EDT Hospital Encounter TH HISTORIC ENCOUNTERS EASTERN CONVERSION ONLY Katherine Moya MD [address] [place] [phone] Social History Tobacco Use Types Packs/Day Years [...] for your loved ones. For example, child abuse worker or elderly care for an older adult? [...] HPI: Patient is a very pleasant 78-year-old -Welsh female who has multiple medical problem including chronic anemia, I did extensive workup, workup is basically unremarkable, there was a question of hemolysis I checked reticulocyte count haptoglobin and Igna test, all studies were negative for any [...] history physical laboratory data this 78-year-old - Welsh female does not have any significant hematological [...] AM EDT Office Visit Orthopedic Surgery - [place] [address] [phone] Andreas Smith DPM [address] [address] 04/27/2025 10:30 AM EST [facility] [address] [place] [address] Sasha Bonner, SLOANE 305 [place] [address] documented as of this encounter Procedures Procedure [...] on filedocumented in this encounter Care Teams Systems Planner Relationship Specialty Start Date End Date Isaiah Harley MD 305 [place] [address] PCP - General Internal Medicine 05/03/20 documented as of this encounter
--- OUTSIDE RECORDS SUMMARY | 2024-12-26 10:06 | XMS_ITS | Encounter Summary ---
Author Organization [facility] Address [address] [place] [address] Care Team Providers Care Combustion Engineer Name Role Phone Unavailable Primary Care Provider Unavailabl e Encounter Details Date Type Department Care Team (Late st Contact Info) Description 02/06/2020 Pharmacist Visit [facility] [address] [place] [phone] Katia Thapa, JAC [address] [place] [address] Social History Tobacco Use Types Packs/Day Years [...]
--- OUTSIDE RECORDS SUMMARY | 2024-12-26 10:06 | XMS_ITS | Clinical Summary ---
Author Organization [facility] Address [address] [facility] [address] [place] [address] Phone Care Team Providers Care Adding Machine Mechanic Name Role Phone Isaiah Harley MD Primary Care Provider [phone] Allergies No known active allergies Medications spironolactone [...] look for evidence of hypercortisolism. History of [place] (myocardial infarction) 02/08/2023 Overview (08/12/2024): 2/ hemorrhagic [...] file Insurance MEDICARE PART A & B [facility] MEDICARE PART A & [place]IC[place] PART [place] & B [facility] MEDICARE PART A & B [facility] Care Teams Adding Machine Mechanic Relationship Specialty Start Date End Date Isaiah Harley MD [address] [place] [phone] PCP - General Internal Medicine 08/12/24 Additional Source Comments The information contained in this document represents components of the legal health record. It is not the complete legal health record.[facility]
--- OUTSIDE RECORDS SUMMARY | 2024-12-26 10:07 | XMS_ITS | Clinical Summary ---
Author Organization [facility] Address [address] [place] [address] Care Team Providers Care Legal Writing Professor Name Role Phone Isaiah Harley MD Primary Care Provider [phone] Allergies No known active allergies Medications Medication [...] age to complete this topic Care Teams Legal Writing Professor Relationship Specialty Start Date End Date Isaiah Harley MD [address] [place] [id number] PCP - General Internal Medicine 07/27/23
--- OUTSIDE RECORDS SUMMARY | 2024-12-26 10:07 | XMS_ITS | Clinical Summary ---
Author Organization [facility] Address [address] [address] Phone Care Team Providers Care Card Cutter Helper Name Role Phone Isaiah Bradley Primary Care Provider [phone] Allergies No known active allergies Medications benazepril [...] 08/01/2021 Immunizations Immunization Administration Dates Next Due [employer] SARS-COV-2 09/14/2021 Pfizer SARS-COV-2 03/27/2022,10/09/2020,09/19/19 21 Family [...] 9.2 8.7 - 10.7 mg/dL eGFR Non-Afr Indian 60 Hemoglobin A1C 7.6(A) 4.0 - 6.0 Triglycerides 75 40 - 160 Cholesterol 218(A) 0 - 200 HDL 75(A) 35 - 70 MG/DL LDL Calculated 128 0 - 160 mg/dL 11/12/2020 Historical Provider LAB BLOOD ORDERABLES Dorothea l Result from Last 3 Months or Most Recently Relevant to Health Maintenance Insurance Medicaid [place] Care Teams Card Cutter Helper Relationship Specialty Start Date End Date Isaiah Bradley [address] [place] [id number] PCP - General Internal Medicine 08/02/21
[2024-12-26 10:15] VITALS: BMI 23.3
--- NOTE | 2024-12-26 10:15 | A.OFFVIS_ITS ---
Vital Signs 12/26/24 10:15 Height 5 ft 5 in Weight 140 lb BMI 23.3 Intake Visit Reasons: OV-1 month post botox ffup Intake Note: Delaney is a 79 year old female who presents today for a 1 month follow up for her post Botox Injection, 11/24/24. At last visit in office on 08/21/24 we discussed Physical therapy(Determined by patient). At today's visit she states she feels like her muscles are less stiff. She is now able to extend her left arm more than before. She is also requesting right knee injection. 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 History of CKD 3, aortic stenosis, adrenal hyperplasia, CHF, HTN, anemia and pancreatic cyst. Patient is on aspirin and Plavix. No oral spasticity medication listed on record. Tight on the elbow and wrist flexor, some on the right knee flexion. Has not tried baclofen. She had Botox once to right leg while she was in short term rehab but none since. Aphasia has improved since stroke. WC level, aliya transfer. Assistance with dressing, meal prep, dressing. Uses left hand to eat. Uses briefs, does not use toilet or commode. Bed baths only. Reports pain on right hand and right knee pain. History of right knee xray, had CT done for right knee per [place]. Does not complain of shoulder pain. Recently had outpatient PT at [facility]. Botulinum toxin injection 07/23/2024, 11/19/2024. We increased the dose to right elbow flexors and added dose to right rectus because of knee pain. They are happy with improvement for the right arm. Able to passively extend fingers and elbow much more. Denies pain. Denied complications. Hard to tell whether botulinum toxin injections were helpful for right knee area because of severe knee pain. X-ray done showed severe arthritis. Patient wanting steroid injection today. ? 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), type 2 with renal complications Chronic pain of both knees Stasis dermatitis of both legs Goiter Carpal tunnel syndrome, bilateral DM (diabetes mellitus), type 2 with neurological complications Microalbuminuria Hyperlipidemia CHF (congestive heart failure) Insomnia Aphasia Hemiparesis History of CVA with residual deficit Chronic kidney disease (CKD) Nonischemic cardiomyopathy History of PA (myocardial infarction) Epileptic disorder Adrenal hyperplasia High plasma von Willebrand factor (vWF) Surgical History S/P cardiac cath Family History Son Hypertension Social History Current occupational status: disabled Current occupation: rt handed Physical Exam Vital Signs: BMI result Body Mass Index 23.3 05/30/24: Right elbow flexion Tio 2 only, but has cogwheeling at end range towards full extension Right wrist flexion Tio 3 Fingers are not flex, straight on IP but slightly flexed on MCP joints Right knee flexion Tio 1-2 Right dorsiflexion Tio 0, foot not inverted 08/21/24: No more cogwheeling on right elbow, up to -20 degrees extension lag now, Tio 1 Right wrist flexion - still -30 degrees from neutral. Tio 2. Noted more pronation. 2nd and 4th PIP joints tend to flex. Right knee can fully extend, Tio 0. Right knee crepitus and patient complains of pain on right knee. Today 12/26/2024: Right wrist and fingers now can passively extend fully. Right elbow can passively extend,-10 degrees extension lag only. No more cogwheeling. Right knee tender to touch, warm. Office Procedures AMB Joint Injection/Aspiration Joint Injection/Aspiration Details: Consent obtained. Patient sits with right knee extended, on wheelchair. Medial edge of patella is identified and marked. Area is cleansed with betadine solution. A 27 gauge needle is injected at an angle laterally and slightly upwards under the patella. Solution containing 40 mg Kenalog and 3m of 2% Lidoca ine is instilled. Patient tolerated procedure well without complications. Post-injection instructions given. Secondary Site: right knee Injected: 40 mg of, Kenalog and with 3 mL of (2% lidocaine) Procedure: The patient tolerated the procedure well Coding 28151 - Large joint Procedure code (CPT) selection complete Results Reviewed Results Reviewed: Ordering Physician: Ashley Espitia Date of Service: 11/19/24 Procedure(s): XR knee RT 2V Accession Number(s): [id number] cc: Isaiah Harley MD; Ashley Espitia~ EXAMINATION: XR KNEE, RIGHT CLINICAL INFORMATION: G81.10 - Spastic hemiplegia affecting unspecified side COMPARISON: None available. TECHNIQUE: AP and lateral of the right knee. FINDINGS: There is severe narrowing and irregularity of the medial joint space. There is mild narrowing and irregularity of the lateral joint space. There is diffuse osteopenia. There is a large bony exostosis involving the superior pole patella. Small amount joint fluid is visible. There is moderate vascular calcifications. XR/XR knee RT 2V IMPRESSION: Severe osteoarthritis. Bony exostosis is present on the posterior superior pole patella of uncertain significance. Osteochondroma is not ruled out. It could also be remote posttraumatic. Borderline joint effusion. Osteopenia. IMPRESSION: Normal right knee. Electronically signed by: Bob Cavazos MD 11/19/2024 03:56 PM EDT Assessment & Plan Assessment & Plan (1) Arthritis of knee, right: Code(s): M17.11 - Unilateral primary osteoarthritis, right knee Category: Medical Plan: Shared x-ray images with patient and son, showing severe arthritis. Most likely cause of her right knee pain. Probably affecting her improvement from botulinum toxin injections as well. Patient wanted to try steroid injections. Injection done as above. Patient tolerated procedure well. Post-injection instructions given. (2) Spastic hemiparesis affecting dominant side: Code(s): G81.10 - Spastic hemiplegia affecting unspecified side Category: Medical (3) Hemiparesis affecting right side as late effect of cerebrovascular accident: Code(s): I69.351 - Hemiplegia and hemiparesis following cerebral infarction affecting right dominant side Category: Medical Plan Very good improvement from botulinum toxin injections. Especially for the right upper extremity. We will continue current dose for upper extremities, but may change the dose for lower extremity depending on improvement from steroid injection of the knee. Next injection February 18. Assessment and plan discussed with patient, and patient was agreeable. All questions were answered thoroughly. Ashley Contreras MD, BIRDIE Board Certified, [place] Board of Physical Medicine and Rehabilitation (ABPMR) Board Certified, [place] Board of Electrodiagnostic Medicine (ABEM) Orders: Orders AMB Joint Injection/Aspiration Today M17.11 - Unilateral primary osteoarthritis, right knee Coding Level of Care Code Est Pt Level 4 (24016) Diagnoses Arthritis of knee, right M17.11 Spastic hemiparesis affecting dominant side G81.10 Hemiparesis affecting right side as late effect of cerebrovascular accident I69.351 CPT Codes Coding - 43550 Large joint: 48370 - Large joint ([id number])
== END 2024-12-26 10:46 | disposition home or self-care (01) ==
LOC: HO.HOS 10:04
PROVIDERS: PCP Internal Medicine; Visit Provider Physical Medicine & Rehabilitation
DX: M17.11 Unilateral primary osteoarthritis, right knee (principal); G81.10 Spastic hemiplegia affecting unspecified side; I69.351 Hemiplegia and hemiparesis following cerebral infarction affecting right dominant side
CPT/HCPCS: 20610; 99214

== ENCOUNTER → 2024-12-26 10:04 | Outpatient (BNVA) | payer MEDICARE, MEDICAID, SELFPAY | PROVIDERS: PCP Internal Medicine; Visit Provider Physical Medicine & Rehabilitation | DX: M17.11 Unilateral primary osteoarthritis, right knee (principal); I69.351 Hemiplegia and hemiparesis following cerebral infarction affecting right dominant side; R25.2 Cramp and spasm | CPT/HCPCS: 20610; 99212; J2003; J3301 ==

== ENCOUNTER → 2025-02-18 12:17 | Outpatient (BNV) | payer MEDICARE, MEDICAID, SELFPAY | PROVIDERS: PCP Internal Medicine; Visit Provider Physical Medicine & Rehabilitation | DX: G81.10 Spastic hemiplegia affecting unspecified side (principal) | CPT/HCPCS: 64643; 64644; 95874 ==

== ENCOUNTER 2025-02-18 13:35 | Outpatient (REF) | payer MEDICARE, MEDICAID, SELFPAY ==
--- OUTSIDE RECORDS SUMMARY | 2024-02-20 10:49 | XMS_ITS | Encounter Summary ---
Author Organization [facility] [place] [address] Care Team Providers Care Shared Services And Outsourcing Manager Name Role Phone Isaiah Harley MD Primary Care Provider Un available Encounter Details Date Type Department Care Team (Late st Contact Info) Description 02/20/2024 10:49 AM EDT Hospital Encounter TH HISTORIC ENCOUNTERS EASTERN CONVERSION ONLY Katherine Moya MD [address] [place] [address] Social History Tobacco Use Types Packs/Day Years [...] for your loved ones. For example, children's lunchroom supervisor or elderly care for an older [...] is a 78 y.o. female. HPI: 78-year-old -[place] female who has multiple medical issues, I [...] unspecified type ANEMIA Patient is a 78-year-old -[place] female who has multiple medical issues, I [...] AM EST Office Visit Orthopedic Surgery - [place] [address] [phone] Andreas Smith DPM [address] [phone] 04/29/2025 10:30 AM EST Office Visit Internal Medicine - [address] [phone] Sasha Bonner, [address] [place] [phone] (work) documented as of this encounter Visit Diagnoses Not on filedocumented in this encounter Care Teams Shared Services And Outsourcing Manager Relationship Specialty Start Date End Date Isaiah Harley MD PCP - General Internal Medicine 05/03/20 02/15/25 documented as of this encounter
--- OUTSIDE RECORDS SUMMARY | 2024-03-21 10:21 | XMS_ITS | Encounter Summary ---
Author Organization [facility] [place] [address] Care Team Providers Care Kapok And Cotton Machine Operator Name Role Phone Isaiah Harley MD Primary Care Provider Un available Encounter Details Date Type Department Care Team (Late st Contact Info) Description 03/21/2024 10:21 AM EDT Hospital Encounter TH HISTORIC ENCOUNTERS EASTERN CONVERSION ONLY Katherine Moya MD [address] [place] [address] Social History Tobacco Use Types Packs/Day Years [...] care for your loved ones. For example, early childhood education instructor or elderly care for an older adult? [...] HPI: Patient is a very pleasant 78-year-old -Canadian female who has multiple medical problem including [...] history physical laboratory data this 78-year-old - Canadian female does not have any significant hematological [...] AM EST Office Visit Orthopedic Surgery - [place] [address] [phone] Andreas Smith DPM [address] [phone] 04/29/2025 10:30 AM EST Office Visit Internal Medicine - [address] [phone] Sasha Bonner, SLOANE 305 [place] [address] documented as of this encounter Procedures Procedure [...] on filedocumented in this encounter Care Teams Kapok And Cotton Machine Operator Relationship Specialty Start Date End Date Isaiah Harley MD PCP - General Internal Medicine 05/03/20 02/15/25 documented as of this encounter
--- NOTE | 2025-02-18 12:17 | EMG_ITS ---
PROCEDURE PERFORMED: Botulinum toxin chemodenervation DIAGNOSIS: Spastic hemiparesis affecting dominant side G81.10 Hemiparesis affecting right side as late effect of cerebrovascular accident I69.351 INDICATION: spastic muscles PREVIOUS TREATMENT AND RESPONSE: Oral antispasticity medications and physical therapy without response Botulinum toxin injection 11/19/2024, 07/23/2024 TOXIN USED: Botox PROCEDURE: The procedure was explained to the patient/caregiver, and informed consent was obtained. The patient sat on wheelchair. Right arm and leg were cleansed with betadine in the usual sterile manner. A 26 gauge needle electrode was used. Muscle Units per site Number of sites Units per muscle Right brachialis 50 2 100 Right brachioradialis 50 2 100 Right PT 50 1 50 Right FCR 50 1 50 Right FDS 50 1 50 Right Rectus 50 2 100 EMG-guidance was used during the injection. A total of 450 units injected. 50 units wastage. Vial size: 100 units per vial, 1 vial; 200 units per vial 2 vials Dilution: 100 units per 1 ml of preservative free saline The patient tolerated the procedure well without complications. The patient was observed for 30 minutes, before being discharged with post procedure instructions. CODING: CPT code: 37427 1 ext, 5 or more muscles 06844 each add?l limb, 1-4 muscles Wastage: Guidance code: 51868 EMG guidance for chemodenervation J code: Botox J0585 [facility] code: 0919-2600-25 2 vials; 0204-6952-63 1 vial Lot #: [id number] Expiration date: , , [facility]
--- OUTSIDE RECORDS SUMMARY | 2025-02-18 14:50 | XMS_ITS | Encounter Summary ---
Author Organization [facility] Address [address] [place] [address] Care Team Providers Care Vp Of Technology Name Role Phone Isaiah Harley MD Primary Care Provider Un available Reason for Referral * Consultation (Routine) - Closed Specialty Diagnoses / Procedures Referred By Contac t Referred To Contact Physical Therapy Diagnoses Cerebral infarction, unspecified mechanism (CMS/HCC V24, CMS/HCC V28) Sasha Bonner NP [address] [place] [address] Phone: tel: fax: [facility] [address] [facility], Floor [address] [place], [place] Referral ID Status Reason Start Date Expiration Date V isits Requested Visits Authorized [id number] Closed Specialty Services Required 01/15/2025 01/15/2026 1 1 Scheduling Instructions [facility] rehab care [address] [place] [address] * Consultation (Routine) - Closed Specialty Diagnoses / Procedures Referred By Contact Referred To Contact Occupational Therapy Diagnoses Cerebral infarction, unspecified mechanism (CMS/HCC V24, CMS/HCC V28) Sasha Bonner NP [address] [place] [address] Phone: tel: fax: [facility] [address] [facility] [place], [place] Referral ID Status Reason Start Date Expiration Date V isits Requested Visits Authorized [id number] Closed Specialty Services Required 01/15/2025 01/15/2026 1 1 [facility] [place] Reason for Visit * Reason Onset Date Comments Referral 01/15/2025 Encounter Details Date Type Department Care Team (Late st Contact Info) Description 01/15/2025 Telephone Internal Medicine - [facility] [address] [place] [address] Isaiah Harley MD needs address update Social History Tobacco Use Types Packs/Day Years [...] care for your loved ones. For example, child's nurse or elderly care for an older [...] as of this encounter Progress Notes * Sasha Gillespie NP - 01/15/2025 5:21 PM EDT Signed * Clari Jernigan MA - 01/15/2025 4:26 PM EDT Pended referrals, please fax to [phone] once signed, thank you. Last seen 12/25/24, next appt 04/27/25. * Jennifer Longo - 01/15/2025 4:10 PM EDT Patient's son is calling for 2 different referrals: Physical pt and OT Due to her stroke 3 yrs ago The ones that I see in the chart have Please call patient's son back at [phone] documented in this encounter Plan of Treatment Upcoming Encounters Date Type Department Care Team (Late st Contact Info) Description 04/13/2025 10:30 AM EST Office Visit Orthopedic Surgery - [place] [address] [place] [phone] Andreas Smith, DPM [address] [place] [phone] 04/29/2025 10:30 AM EST Office Visit Internal Medicine - [facility] [address] [place] [address] Sasha Bonner, SLOANE [address] [place] [address] Scheduled Referrals Name Type Priority Associated Diagnoses Order Schedule Ambulatory referral to Occupational Therapy Outpatient Referral Routine Cerebral infarction, unspecified mechanism ([facility] V24, CMS/[facility] V28) 1 Occurrences starting 01/15/2025 until 01/15/2026 Ambulatory referral to Physical Therapy and Athletic Training Outpatient Referral Routine Cerebral infarction, unspecified mechanism (CMS/[facility] V24, CMS/HCC V28) 1 Occurrences starting 01/15/2025 until 01/15/2026 documented as of this encounter Visit Diagnoses Diagnosis Cerebral infarction, unspecified mechanism (CMS/[facility] V24, CMS/HCC V28)- Primary documented in this encounter Additional Health Concerns Assessment Noted Time PHQ-9 Depression Total Score: 0 05/05/20 10:44 AM EST documented as of this encounter Care Teams Vp Of Technology Relationship Specialty Start Date End Date Isaiah Harley MD PCP - General Internal Medicine 05/03/20 02/15/25 documented as of this encounter
--- OUTSIDE RECORDS SUMMARY | 2025-02-18 14:50 | XMS_ITS | Encounter Summary ---
Author Organization [facility] Address [address] [place] [address] Care Team Providers Care Marketing Information Coordinator Name Role Phone Unavailable Primary Care Provider Unavailabl e Encounter Details Date Type Department Care Team (Late st Contact Info) Description 02/06/2020 Pharmacist Visit [facility] [address] [place] [phone] Katia Thapa, JAC [address] [place] [address] Social History Tobacco Use Types Packs/Day Years [...]
--- OUTSIDE RECORDS SUMMARY | 2025-02-18 14:51 | XMS_ITS ---
Author Name [facility] Organization Unknown Care Team Organization Name Specialty Phone Email Start Date End [facility] 01/07/2025
--- OUTSIDE RECORDS SUMMARY | 2025-02-18 14:51 | XMS_ITS | Clinical Summary ---
Author Organization [facility] Address [address] [address] Phone Care Team Providers Care Burr Machine Operator Name Role Phone Isaiah Bradley Primary Care Provider [phone] Allergies No known active allergies Medications benazepril [...] 08/01/2021 Immunizations Immunization Administration Dates Next Due [email or web address] SARS-COV-2 09/14/2021 Pfizer SARS-COV-2 03/27/2022,10/09/2020,09/19/19 21 Family [...] 9.2 8.7 - 10.7 mg/dL eGFR Non-Afr [place] 60 Hemoglobin A1C 7.6(A) 4.0 - 6.0 Triglycerides 75 40 - 160 Cholesterol 218(A) 0 - 200 HDL 75(A) 35 - 70 MG/DL LDL Calculated 128 0 - 160 mg/dL 11/12/2020 Historical Provider LAB BLOOD ORDERABLES Dorothea l Result from Last 3 Months or Most Recently Relevant to Health Maintenance [place] Care Teams Burr Machine Operator Relationship Specialty Start Date End Date Isaiah Bradley [address] [place] [id number] PCP - General Internal Medicine 08/02/21
--- OUTSIDE RECORDS SUMMARY | 2025-02-18 14:51 | XMS_ITS | Clinical Summary ---
Author Organization [address] [facility] Address [address] [place] [phone] Phone Care Team Providers Care Pairer Substandard Name Role Phone Jill Michaels MD Primary Care Provider [phone] Allergies No known active allergies Medications levETIRAcetam [...] (one) time each day. 05/24/19 24 Active protectives, O.U. (SKIN PROTECTANTS, MISC. TOP) Apply 1 Film topically daily. 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 180 capsule 1 06/06/19 25 Active labetaloL (NORMODYNE) 300 mg tabletIndication s:Essential (primary) hypertension Take 1 tablet (300 mg total) by mouth 3 (three) times a day. 270 tablet 12/03/19 25 Active valsartan (DIOVAN) 160 mg tablet TAKE 1 TABLET BY MOUTH 1 TIME EACH DAY. 90 tablet 01/17/20 25 Active Active Problems Problem Noted Date Diagnosed Date Type 2 diabetes mellitus wit h eye manifestations ([facility] V24, [facility] V28) 09/13/2023 Adrenal hyperplasia ([facility] V24) 09/05/2023 Assessment & Plan (05/05/2024 10:51 AM EST): She is scheduled to see with her biofuels production manager for adrenal hyperplasia and multinodular goiter. High plasma von Willebrand factor (vWF) 09/05/19 History of VA (myocardial infarction) 02/08/2023 Overview (01/03/2024): 2/2 hemorrhagic shock 10/2022 Abnormal posture 11/12/2022 Anemia 11/12/2022 Generalized muscle weakness 11/12/2022 Other lack of coordination 11/12/2022 Presence of other specified functional implants 11/12/2022 Cerebral infarction ([facility] V24, [facility] V28) 0 11/11/2022 Elevation of levels of liver transaminase levels 11/11/2022 Nonischemic cardiomyopathy ([facility] V24, [facility] V28) 03/02/2022 Overview (01/03/2024): Last Assessment & [...] week. Aphasia 10/06/2021 CHF (congestive heart failure) ([facility] V24, [facility] V28) 10/06/2021 Stage 3 chronic kidney disease ([facility] V24, [facility] V28) 10/06/2021 Hemiplegia and hemiparesis f ollowing cerebral infarction affecting right dominant side ([facility] V24, [facility] V28) 10/06/2021 Assessment & Plan (05/05/2024 10:51 AM EST): She followed up with her neurologist, . She is currently on Aggrenox and atorvastatin. She is also on Keppra for seizures. No recent seizure episodes. History of CVA with residual deficit 10/06/2021 [...] made during her last hospitalization. Insomnia 10/06/2021 Diabetic nephropathy associa jason with type 2 diabetes mellitus ([facility] V24, [facility] V28) 08/01/2021 Assessment & Plan (05/05/2024 10:51 [...] panel with reflex to direct LDL; Future Goiter 05/03/2020 Microalbuminuria 05/03/2020 Overview (01/03/2024): [facility] Stasis dermatitis of both legs 05/03/2020 Nonrheumatic aortic valve stenosis 03/20/2017 Overview (01/03/2024): [...] (05/05/2024 10:51 AM EST): She is seeing [facility] cardiology and is scheduled to see them in July for her aortic stenosis. Polyp of colon 03/20/2017 Dyslipidemia 05/19/2013 Multinodular goiter 01/16/2013 Assessment & Plan (05/05/2024 [...] in 1 week, he will let her casino surveillance officer know but we could increase her spironolactone dose to 100 mg daily or valsartan dose to 320 mg daily. Will monitor patient's electrolytes. Orders: Basic metabolic panel; Future Diabetes mellitus ([facility] V24, [facility] V28) Vitamin D deficiency 01/15/2013 Resolved Problems Problem Noted Date Diagnosed Date Resolved Date Non-proliferative diabetic r etinopathy, mild, both eyes ([facility] V24, [facility] V28) 09/13/202311/2024 Overview (03/31/2024): Dr. Gamez Epileptic disorder ([facility] V24, [facility] V28) 02/09/20 23 12/25/2024 Overview (03/31/2024): EEG with epileptiform changes after CVA 08/2021. Keppra 500 mg bid per [facility] lifelong Dysphagia following cerebral infarction 12/19/2022 12/25/2024 Pressure ulcer of sacral reg ion, stage 3 ([facility] V24, [facility] V28) 11/28/2022 12/25/2024 Diastolic congestive heart f ailure ([facility] V24, [facility] V28) 11/12/2022 12/25/2024 Lymphoid interstitial pneumo kareem ([facility] V24, [facility] V28) 11/12/2022 12/25/2024 Metabolic encephalopathy 11/11/202211/2024 Pleural effusion 11/11/2022 12/25/2024 Edema 08/01/2021 12/25/2024 Carpal tunnel syndrome, bilateral 05/03/2020 12/25/2024 Pain in right knee 11/17/2019 Low back pain 04/04/2013 12/25/2024 Encounters Date Type Department Care Team Description 01/29/2025 Telephone Internal Medicine [facility] [address] [facility] [place] [phone] Sasha Bonner NP 01/15/2025 Telephone Internal Medicine - [facility] [address] [facility] [place] [phone] Isaiah Harley MD 01/08/2025 10:15 AM EDT Office Visit Orthopedic Surgery [facility] [address] [facility] [address] [place] [address] Andreas Smith DPM Primary osteoarthritis of both feet (Primary Dx); Dermatophytosis of nail; Type II diabetes mellitus with peripheral circulatory disorder ([facility] V24, [facility] V28); Pain in toe of right foot; Pain in toe of left foot 12/25/2024 10:30 AM EDT [facility] [phone] Sasha Bonner, [place] Type 2 diabetes mellitus with other ophthalmic complication, without long-term current use of insulin ([facility] V24, [facility] V28) (Primary Dx); Hemiplegia and hemiparesis following cerebral infarction affecting right dominant side ([facility] V24, [facility] V28); Cerebral infarction, unspecified mechanism ([facility] V24, [facility] V28); Aphasia; Nonintractable epilepsy without status epilepticus, unspecified epilepsy type ([facility] V24, [facility] V28); Nonrheumatic aortic valve stenosis; Nonischemic cardiomyopathy ([facility] V24, [facility] V28); Essential hypertension; Congestive heart failure, unspecified HF chronicity, unspecified heart failure type ([facility] V24, [facility] V28); Stage 3a chronic kidney disease ([facility] V24, [facility] V28) 12/09/2024 [facility] [address] [place] [address] Isaiah Harley MD 12/08/2024 [facility] [address] [place] [address] [phone] Isaiah Harley MD 12/04/2024 [facility] [phone] Isaiah Harley MD 12/02/2024 [facility] [address] [place] [address] Isaiah Harley MD 12/02/2024 Telephone Internal Medicine - [address] [place] [phone] Isaiah Harley MD 11/28/2024 Telephone Internal Medicine - [address] [place] [phone] Isaiah Harley MD from Last 3 Months Immunizations Immunization Administration Dates Next Due Pidgon/Novogy SARS-CoV-2 COVID -19, vector-nr, rS-Ad26, preservative free 09/14/2021,09/11/2021 Pfizer (ages 12 & older) Bivalent, COVID-19 11/2021 Pfizer SARS-CoV-2 COVID-19, mRNA, LNP-S, preservative free 10/09/2020,09/18/2020 Medical History Medical History Date Comments Polyp of colon 03/20/2017 DX:Polyp of colo n Obesity (BMI 30-39.9) 03/20/2017 DX:Obesity (BMI 30-39.9) DM (diabetes mellitus), type 2 with renal complications ([facility] V24, [facility] V28) 03/20/2017 DX:DM (diabetes mellitus), t ype 2 with renal complications (HCC) DM (diabetes mellitus), type 2 with neurological complications ([facility] V24, [facility] V28) 05/03/2020 DX:DM (diabetes mellitus), t ype 2 with neurological complications (HCC) Carpal tunnel syndrome, bilateral 05/03/2020 DX:Carpal tunnel syndrome, bilateral Goiter 05/03/2020 DX:Goiter Stasis dermatitis of both legs 05/03/2020 D X:Stasis dermatitis of both legs Epileptic disorder ([facility] V24, [facility] V28) 02/08/2023 DX:Epileptic disorder (HCC); COMMENT: EEG with epileptiform changes after CVA 08/2021. Keppra 500 mg bid per [facility] lifelong Stroke ([facility] V24, [facility] V28) DX:Stroke (HCC) Adrenal hyperplasia ([facility] V24) 09/05/2023 DX:Adrenal hyperplasia (HCC) Non-proliferative diabetic retinopathy, mild, both eyes (CMS/HCC V24, CMS/HCC V28) 09/13/2023 DX:Non-proliferative diabeti c retinopathy, mild, both eyes (HCC); COMMENT: Dr. Gamez Type 2 diabetes mellitus wit h eye manifestations (CMS/HCC V24, CMS/HCC V28) 09/13/2023 DX:Type 2 diabetes mellitus with [...] for your loved ones. For example, child support specialist or elderly care for an older [...] Sign Reading Time Taken Comments Blood Pressure 130/64 12/25/2024 10:59 AM EDT Pulse 63 12/25/2024 10:34 AM EDT Temperature - - Respiratory Rate - - Oxygen Saturation - - Inhaled Oxygen Concentration - - Weight 76.7 kg (169 lb 1.5 oz) 01/08/2025 10:08 AM EDT Height 170.2 cm (5' 7.01 ) 01/08/2025 10:08 AM E DT Body Mass Index 26.48 01/08/2025 10:08 AM EDT Plan of Treatment Upcoming Encounters Date Type Department Care Team (Late st Contact Info) Description 04/13/2025 10:30 AM EST Office Visit Orthopedic Surgery - [place] [address] [phone] Andreas Smith DPM [address] [phone] 04/29/2025 10:30 AM EST Office Visit Internal Medicine - [address] [phone] Sasha Bonner, SLOANE [address] [place] [phone] Health Maintenance Due Date Last Done Comments Diabetes: Annual Foot Exam 1955 DTaP,Tdap,and Td Vaccines (1 - Tdap) 1965 Pneumococcal Vaccine: 50+ Years (1 of 2 - PCV) 1965 Zoster Vaccines (1 of 2) 1965 RSV Immunization Adult Patients (1 - 1-dose 75+ series) 2021 Diabetes: Annual Urine Albumin-Creatinine Ratio (uACR) 05/05/2022 Colorectal Cancer Screening: Colonoscopy 12/03/2023 12/02/2013 Depression Screening 05/21/2024 05/05/2024, 03/01/20 Diabetes: Blood Sugar Control Test (HGBA1C) 11/19/2024 2024, 09/05/2023 COVID-19 Vaccine ( - season) 2025 03/27/2022, 09/14/2021, 09/11/2021, Additional history exists Influenza Vaccine (#1) 2025 Falls Risk Assessment 05/05/2025 05/05/2024 Medicare Annual Wellness Visit 05/05/2025 05/05/2024 Social Influencers of Health Screening 05/05/2025 05/05/2024 Diabetes: Annual GFR (Glomerular Filtration Rate) 2025 2024, 09/05/2023 Hypertension/CHF/CAD Annual BMP Blood Test 2025 2024, 09/05/2023 Diabetes: Annual Retina Eye Exam 09/29/2025 09/29/2024, 09/12/2023 Osteoporosis Screening (Bone Density Screening) 05/17/2027 05/17/2017 [...] Procedure Name Priority Date/Time Associated Diagnosis Comments EXTERNAL CLINICAL LAB 12/03/2024 EXTERNAL XRAY REPORT 11/19/2024 EXTERNAL XRAY REPORT 11/19/2024 EXTERNAL DIABETIC RETINA EYE EXAM 09/29/2024 BASIC METABOLIC PANEL Routine 2024 10:49 AM EST Essential hypertension HEMOGLOBIN A1C Routine 2024 10:49 AM EST Diabetic nephropathy associated with type 2 diabetes mellitus ([facility] V24, [facility] V28) LIPID PANEL WITH REFLEX TO DIRECT LDL Routine 2024 10:49 AM EST Hyperlipidemia, unspecified hyperlipidemia type DEPRESSION SCREENING Routine 03/01/2023 HEPATITIS C SCREENING Routine 02/13/2023 DXA BONE DENSITY STUDY 1+ SITS AXIAL SKEL Routine 05/17/2017 9:20 AM EST Asymptomatic menopausal state COLONOSCOPY Routine 12/02/2013 from Last 3 Months or Most Recently Relevant to Health Maintenance Results * External clinical lab (12/03/2024) Provider [facility] LAB BLOOD ORDERABLES Fin al Result * External Xray Report (11/19/2024) Only the most recent of2 resultswithin the time period is included. Anatomical Region Laterality Modality Radiographic Brianne ging us Provider [facility] IM XR PROCEDURES Final Result * External Diabetic Retina Eye Exam Report (09/29/2024) Anatomical Region Laterality Modality Ultrasound [facility] IMG US PROCEDURES Final Result * Lipid panel with reflex to direct LDL (2024 10:49 AM EST) Cholesterol 180 0 - 200 mg/dL LAB CHEMISTRY METHOD 2024 3:03 PM [facility] Triglycerides 73 0 - 150 mg/dL LAB CHEMISTRY METHOD 2024 3:03 PM [facility] HDL 65 >=40 mg/dL LAB CHEMISTRY METHOD 2024 3:03 PM [facility] LDL Calculated 100 0 - 100 mg/dL LAB CHEMISTRY METHOD 2024 3:03 PM [facility] VLDL Cholesterol Pavel 14.6 mg/dL LAB CHEMISTRY METHOD 2024 3:03 PM [facility] Non HDL Chol. (LDL+VLDL) 115 <145 mg/dL LAB CHEMISTRY METHOD 2024 3:03 PM [facility] Chol/HDL Ratio 2.8 0.0 - 4.4 LAB CHEMISTRY METHOD 2024 3:03 PM [facility] Blood Venous blood specimen / Unknown Venipuncture / Unknown 2024 10:49 AM EST 2024 10:49 AM EST Isaiah Harley MD LAB BLOOD ORDERABLES Dorothea l Result [facility] [address] [place] [address], [place] [phone] * Hemoglobin A1c (2024 10:49 AM EST) Hemoglobin A1C 5.9 <6.5 % LAB CHEMISTRY METHOD 2024 9:17 PM [facility] Mean Bld Glu Estim. 123 mg/dL LAB CHEMISTRY METHOD 2024 9:17 PM [facility] Blood Venous blood specimen / Unknown Venipuncture / Unknown 2024 10:49 AM EST 2024 10:49 AM EST us Isaiah Harley MD LAB BLOOD ORDERABLES Dorothea l Result [facility] [address] [place] [address], * (ABNORMAL) Basic metabolic panel (2024 10:49 AM EST) Sodium 140 133 - 145 mmol/L LAB CHEMISTRY METHOD 2024 2:58 PM [facility] Potassium 3.2(L) 3.5 - 5.5 mmol/L LAB CHEMISTRY METHOD 2024 2:58 PM [facility] Chloride 107 96 - 110 mmol/L LAB CHEMISTRY METHOD 2024 2:58 PM [facility] CO2 28 21 - 32 mmol/L LAB CHEMISTRY METHOD 2024 2:58 PM [facility] Anion Gap 5 3 - 11 LAB CHEMISTRY METHOD 2024 2:58 PM [facility] Glucose 140(H) 70 - 100 mg/dL LAB CHEMISTRY METHOD 2024 2:58 PM [facility] BUN 13 5 - 25 mg/dL LAB CHEMISTRY METHOD 2024 2:58 PM [facility] Creatinine 1.07 0.50 - 1.10 mg/dL LAB CHEMISTRY METHOD 2024 2:58 PM [facility] eGFR 53(L) >=60 mL/min/1. 73m2 LAB CHEMISTRY METHOD 2024 2:58 PM EST [facility] Comment:Calculation based on the Chronic Kidney Disease Epidemiology Collaboration (CKD-EPI) equation refit without adjustment for race. BUN/Creatinine Ratio 12.1 LAB CHEMISTRY METHOD 2024 2:58 PM EST [facility] Calcium 8.8 8.5 - 10.5 mg/dL LAB CHEMISTRY METHOD 2024 2:58 PM EST [facility] Blood Venous blood specimen / Unknown Venipuncture / Unknown 2024 10:49 AM EST 2024 10:49 AM EST Isaiah Harley MD LAB BLOOD ORDERABLES Dorothea l Result [facility] [address] [place] [address], * Depression Screening (03/01/2023) Depression Screening completed Historical Provider HEALTH MAINTENANCE Final Result * Hepatitis C Screening (02/13/2023) Hepatitis C Screening negatibve Historical Provider HEALTH MAINTENANCE Final Result * DXA BONE DENSITY STUDY 1+ SITS AXIAL SKEL (05/17/2017 9:20 AM EST) Anatomical Region Laterality Modality Bone Densitometr y 03/20/2017 4:12 PM EDT Narrative 05/17/2017 2:52 PM EST BONE DENSITY Lumbar Spine T-score is +2.0 [...] (World Health Organization Fracture Risk Assessment) [facility] Department of Internal Medicine recommends [...] (World Health Organization Fracture Risk Assessment) [facility] Department of Internal Medicine recommendsusing [...] PROCEDURES Final Re sult * [facility] (12[facility] abnormal Anatomical Region Laterality Modality Other Historical Provider HEALTH MAINTENANCE Final Result from Last 3 Months or Most Recently Relevant to Health Maintenance Insurance [place] - [place] MEDICARE Advance Directives Documents on File Type Date Recorded Patient Remedial Teacher Expl anation Health Care Decision (hx) 09/14/2021 [...] (hx) 08/19/2021 AD COFFMAN DIRECTIVE Care Teams Pairer Substandard Relationship Specialty Start Date End Date Jill Michaels MD [address] [facility] [place] [phone] PCP - General Internal Medicine 02/16/25
--- OUTSIDE RECORDS SUMMARY | 2025-02-18 14:51 | XMS_ITS | Clinical Summary ---
Author Organization [facility] Address [address] [facility] [address] [place] [phone] Phone Care Team Providers Care Box Hinge And Lock Attacher Name Role Phone Isaiah Harley MD Primary Care Provider [phone] Allergies No known active allergies Medications spironolactone [...] look for evidence of hypercortisolism. History of DC (myocardial infarction) 02/08/2023 Overview (08/12/2024): 2/ hemorrhagic [...] VACCINE (1 - 1-dose 75+ series) 2021 DIABETIC EYE EXAM 08/12/2024 HEMOGLOBIN A1C 11/19/2024 2024 INFLUENZA VACCINE (#1) 2024 COVID-19 VACCINE ( - 2023-2 5 season) 2025 BLOOD PRESSURE 02/12/2025 08/12/2024 POTASSIUM LEVEL 06/18/2025 [...] file Insurance MEDICARE PART A & B [facility] & B [place] MED[place] PART [place] & B [facility] & [facility] MEDIC[facility] PART A & [facility] Care Teams Box Hinge And Lock Attacher Relationship Specialty Start Date End Date Isaiah Harley MD [address] [place] [phone] PCP - General Internal Medicine 08/12/24 Additional Source Comments The information contained in this document represents components of the legal health record. It is not the complete legal health record.[facility]
--- OUTSIDE RECORDS SUMMARY | 2025-02-18 14:51 | XMS_ITS | Clinical Summary ---
Author Organization [facility] Address [address] [place] [address] Care Team Providers Care Insurance Billing Clerk Name Role Phone Isaiah Harley MD Primary Care Provider [phone] Allergies No known active allergies Medications Medication [...] - 1-dose 75+ series) 2021 COVID-19 Vaccine (2024- season) 2025 03/27/2022, 09/14/2021, 10/09/2020, Additional history exists Influenza Vaccine (#1) 2025 Hepatitis B Vaccines Aged Out No long er eligible based on patient's age to complete this topic RSV Ped < 20 months Aged Out No longe r eligible based on patient's age to complete this topic Care Teams Insurance Billing Clerk Relationship Specialty Start Date End Date Isaiah Harley MD [address] [place] [phone] PCP - General Internal Medicine 07/27/23
== END 2025-02-18 13:36 | disposition home or self-care (01) ==
LOC: HO.NEURO 13:35
PROVIDERS: PCP Internal Medicine; Visit Provider Physical Medicine & Rehabilitation
DX: I69.351 Hemiplegia and hemiparesis following cerebral infarction affecting right dominant side (principal)
CPT/HCPCS: 64643; 64644; 95874; J0585

== ENCOUNTER 2025-04-08 10:31 | Outpatient (AMB) | payer MEDICARE, MEDICAID, SELFPAY ==
--- OUTSIDE RECORDS SUMMARY | 2024-02-20 09:49 | XMS_ITS | Encounter Summary ---
Author Organization [facility] Address [address] [place] [address] Care Team Providers Care Hand Crocheter Name Role Phone Isaiah Harley MD Primary Care Provider [phone] Encounter Details Date Type Department Care Team (Late st Contact Info) Description 02/20/2024 10:49 AM EDT Hospital Encounter TH HISTORIC ENCOUNTERS EASTERN CONVERSION ONLY Katherine Moya MD [address] [place] [id number] Social History Tobacco Use Types Packs/Day Years Used Date Smoking Tobacco: Never Smokeless Tobacco: Never Alcohol Use Standard Drinks/Week Comments Never 0 (1 standard drink = 0.6 oz pur e alcohol) Housing Instability Answer Date Recorde d Are you worried that in the next 2 months you may not have stable housing? No 05/05/2024 Food Access & Nutrition Answer Date Rec orded Do you have access to a vari ety of food including fruits and vegetables? No 05/05/2024 Health Literacy Answer Date Recorded How often do you need to hav e someone help you when you read instructions, pamphlets, or other written material from your doctor or pharmacy? Never 05/05/2024 Caregiver: How often do you need to have someone help you when you read instructions, pamphlets, or other written material from your doctor or pharmacy? Not on file 05/05/2024 Financial Risk Answer Date Recorded How hard is it for you to pa y for the very basics like food, housing, medical care, and air conditioning / heating? Not very hard 05/05/2024 Transportation Answer Date Recorded Has the lack of transportati on kept you from meetings, work, or from getting things needed for daily living? No Has the lack of transportati on kept you from medical appointments or from getting medications? No 05/05/2024 Social Isolation Answer Date Recorded How often do you feel lonely or isolated from th ose around you? Never 05/05/2024 Food Risk Answer Date Recorded Within the past 12 months we worried whether our food would run out before we got money to buy more. Never true 05/05/2024 Within the past 12 months th e food we bought just didn't last and we didn't have money to get more. Never true 05/05/2024 Dependent Care Answer Date Recorded Do you need help finding or paying for care for your loved ones. For example, children's service supervisor or elderly care for an older adult? No 05/05/2024 Education Answer Date Recorded Do you think completing more education or training, like finishing a GED, going to college, or learning a trade, would be helpful for you? No 05/05/2024 Employment and Income Answer Date Recor ded During the last four weeks, have you been actively looking for work? No 05/05/2024 Living Situation Answer Date Recorded What is your living situation? Unrecognized valu e 05/05/2024 Comments No Sex and Gender Information Value Date Recorded Sex Assigned at Not on file Legal Sex Female 11:30 PM EST Gender Identity Not on file Sexual Orientation Not on file documented as of this encounter Last Filed Vital Signs Vital Sign Reading Time Taken Comments Blood Pressure 186/66 02/20/2024 10:56 AM EDT Si tting Left arm Pulse 67 02/20/2024 10:56 AM EDT Temperature - - Respiratory Rate - - Oxygen Saturation - - Inhaled Oxygen Concentration - - Weight - - Height - - Body Mass Index - - documented in this encounter Progress Notes * Katherine Moya MD - 02/20/2024 10:45 AM EDT CHIEF COMPLAINT: Follow-up IDENTIFIER:Delaney Hinton is a 78 y.o. female. HPI: 78-year-old -[place] female who has multiple medical issues, I saw her earlier this year for anemia and bleeding disorder, her coagulopathy workup was unremarkable but she had significant anemia with hemoglobin less than 10 g with evidence of some hemolysis so my plan was to repeat labs in January and reassess her but unfortunately patient did not have labs done but she has been feelingfair ROS: Patient is wheelchair-bound but she told me she has been feeling fair Patient denies any obvious blood loss Patient did not have any labs done to reassess her PAST MEDICAL HISTORY: Hypertension Dyslipidemia Coronary artery disease Congestive heart failure/cardiomyopathy Type 2 diabetes Thyroid disease Chronic renal insufficiency Epileptic disorder Chronic arthritis Aortic stenosis CVA with significant deficit of right sided??hemiparesis ? SOCIAL HISTORY: She never smoker Used to drink socially She is single and on disability Her son is very involved in her care ?? FAMILY HISTORY: Noncontributory (no family history of any hematological disorder including anemia or bleeding disorder) Current Outpatient Medications: ??? amLODIPine (NORVASC) tablet 10 mg, Take 1 tablet (10 mg total) by mouth daily., Disp: , Rfl: ??? atorvastatin (LIPITOR) tablet 80 mg, Take 1 tablet (80 mg total) by mouth daily., Disp: , Rfl: ??? dipyridamole-aspirin (AGGRENOX) 200-25 MG per 12 hr capsule, Take 1 capsule by mouth 2 (two) times a day., Disp: , Rfl: ??? hydrALAZINE (APRESOLINE) 100 MG tablet, Take 1 tablet (100 mg total) by mouth 3 (three) times aday., Disp: , Rfl: ??? Klor-Con M20 20 MEQ tablet, Take 1 tablet (20 mEq total) by mouth 2 (two) times a day. for 7 days, Disp: , Rfl: ??? labetalol (NORMODYNE) 300 MG tablet, Take 1 tablet (300 mg total) by mouth 3 (three) times a day., Disp: , Rfl: ??? levETIRAcetam (KEPPRA) 500 MG tablet, Take 1 tablet (500 mg total) by mouth., Disp: , Rfl: ??? metFORMIN (GLUCOPHAGE) tablet 1000 mg, Take 1 tablet (1,000 mg total) by mouth., Disp: , Rfl: ??? valsartan (DIOVAN) tablet 160 mg, Take 1 tablet (160 mg total) by mouth daily., Disp: , Rfl: You are allergic to the following Date Reviewed: 02/20/2024 No active allergies PHYSICAL EXAM: BP 186/66 (BP Location: Left arm) Pulse 67 Temp 98.5 ??F (36.9 ??C) (Temporal) SpO2 100% ECOG 2 APPEARANCE: Alert and oriented in no acute distress EYES: nonicteric sclera pink conjunctiva ORAL CAVITY: No mucositis NECK: Neck supple, no significant adenopathy, HEART: normal S1 and S2 LUNG: clear to auscultation bilaterally except decreased breath sound at bases LYMPH NODES: No palpable superficial adenopathy ABDOMEN: soft, nontender and no organomegaly appreciated EXTREMITIES: Unchanged IMPRESSION: SNOMED CT(R) 1. Coagulopathy (HCC) BLOOD COAGULATION DISORDER 2. Anemia, unspecified type ANEMIA Patient is a 78-year-old -[place] female who has multiple medical issues, I saw patient earlier this year regarding anemia and coagulopathy/bleeding disorder, her coagulopathy workup was negative, patient has been not having any significant bleeding bruising etc., patient had significant anemia with evidence of some hemolysis, plan was to do further workup to rule out any autoimmune hemolytic anemia or any other underlying etiology for anemia but patient did not have labs done so I willdo labs today and reassess her in next month PLAN: I will check her labs today including reticulocyte count, haptoglobin, Gina test, iron studies etc. I will see her back next month for any further intervention Katherine Moya MD documented in this encounter Plan of Treatment Upcoming Encounters Date Type Department Care Team (Late st Contact Info) Description 04/13/2025 10:30 AM EST Office Visit Orthopedic Surgery - [place] [address] [phone] Andreas Smith DPM [address] [phone] 04/29/2025 10:30 AM EST Office Visit Internal Medicine - [address] [phone] Sasha Bonner, [address] [place] [address] documented as of this encounter Visit Diagnoses Not on filedocumented in this encounter Care Teams Hand Crocheter Relationship Specialty Start Date End Date Isaiah Harley MD PCP - General Internal Medicine 05/03/20 02/15/25 documented as of this encounter
--- OUTSIDE RECORDS SUMMARY | 2024-03-21 09:21 | XMS_ITS | Encounter Summary ---
Author Organization [facility] Address [address] [place] [address] Care Team Providers Care Bakery Demonstrator Name Role Phone Isaiah Harley MD Primary Care Provider [phone] [phone] Encounter Details Date Type Department Care Team (Late st Contact Info) Description 03/21/2024 10:21 AM EDT Hospital Encounter TH HISTORIC ENCOUNTERS EASTERN CONVERSION ONLY Katherine Moya MD [address] [place] [phone] Social History Tobacco Use Types Packs/Day Years [...] for your loved ones. For example, child care team lead or elderly care for an older adult? [...] HPI: Patient is a very pleasant 78-year-old -Gu[place]ian female who has multiple medical problem including [...] history physical laboratory data this 78-year-old - Gu[place]ian female does not have any significant hematological [...] AM EST Office Visit Orthopedic Surgery - [place] [address] [phone] Andreas Smith DPChau [address] [phone] 04/29/2025 10:30 AM EST Office Visit Internal Medicine - [facility] 305 [place] [address] Sasha Bonner, SLOANE 305 [place] [address] documented as of this encounter Procedures Procedure [...] on filedocumented in this encounter Care Teams Bakery Demonstrator Relationship Specialty Start Date End Date Isaiah Harley MD PCP - General Internal Medicine 05/03/20 02/15/25 documented as of this encounter
--- NOTE | 2025-04-08 10:33 | A.OFFVIS_ITS ---
Vital Signs 04/08/25 10:34 Height 5 ft 5 in BP 160/72 H Blood Pressure Location Lt brachial Position Sitting Pulse 65 Pulse Source Pulse Oximeter Pulse Oximetry (%) 99 Oxygen Delivery Method Room Air Intake Visit Reasons: follow up Intake Note: Follow up Hemiparesis affecting right side as late effect of cerebrovascular accident and seizures Practice Consultant Required: No Accompanied by: Son Allergies No Known Allergies Allergy (Verified 04/08/25 10:33) HPI Comments Details: 78y/o Right handed female comes for follow up of seizures. she is seeing for botox for right UE and LE No seizures. History from 02/2024she is accompanied by her son who helps with history.Some history was also obtained from her PCP Dr. Harley's note.she had a CVA ( Hemorrhagic stroke )in November of 2021 when she presented with Right hemiparesis and aphasia. According to her son she was started on Aspirin /dipyridamol 25/200 and levetiracetam 500mg bid He has not witnessed a seizure but was told that her seizures were due to stroke and needs it life long. She is home , wheelchair and bed bound with 24 hr help. she has some speech and swallowing issues and weakness Right UE and LE. she denies any side effects form medications I don't have reports from her stroke admission she has sleep issues with snoring and hypersomnia. [facility] Medical History Arthritis of knee, right Seizure Hypersomnia Snoring Polyp of colon Aortic stenosis Essential (primary) hypertension History of radioactive iodine thyroid ablation DM (diabetes mellitus), type 2 with renal complications Chronic pain of both knees Stasis dermatitis of both legs Goiter Carpal tunnel syndrome, bilateral DM (diabetes mellitus), type 2 with neurological complications Microalbuminuria Hyperlipidemia CHF (congestive heart failure) Insomnia Aphasia Hemiparesis History of CVA with residual deficit Chronic kidney disease (CKD) Nonischemic cardiomyopathy History of [place] (myocardial infarction) Epileptic disorder Adrenal hyperplasia High plasma von Willebrand factor (vWF) Surgical History S/P cardiac cath Family History Son Hypertension Social History Current occupational status: disabled Current occupation: rt handed Physical Exam Vital Signs: Last Vital Signs Pulse 65 04/08/25 10:34 BP 160/72 H 04/08/25 10:34 Pulse Ox 99 04/08/25 10:34 Oxygen Delivery Method Room Air 04/08/25 10:34 Const General: cooperative and comfortable Nutritional Appearance: overweight Orientation/consciousness: patient oriented x3 Eyes Pupils: Equal, round and reactive pupils present Neuro Other: Mild right facial weakness Speech- able to name , repeat , comprehend, dysarthria Mallampatti grade 4 Facial sensation - normal Motor- Left UE and LE 5/5 Tone - normal Right UE- 2-3/5 -spasticity in Right shoulder elbow wrist and fingers Left LE- 2-3/5 with increased tone wheel chair bound General: patient oriented x3 and Unable to assess gait Cranial nerves: Yes Equal, round and reactive pupils present, Yes Bilaterally intact EOM present, Yes Nystagmus not present and Yes Midline tongue present Cognition (Neuro): normal cognition Gait exam (Neuro): Unable to assess gait Assessment & Plan Assessment & Plan (1) Seizure: Code(s): R56.9 - Unspecified convulsions Category: Medical (2) Hemiparesis affecting right side as late effect of cerebrovascular accident: Code(s): I69.351 - Hemiplegia and hemiparesis following cerebral infarction affecting right dominant side Category: Medical Plan Continue levetiracetam 500mg bid ASA/Dipyridamol 25/200 qd Risk factor reduction Home sleep test was normal F/u Physiatry for treatment of spasticty with Botox. Coding Level of Care Code Est Pt Level 4 (32499) Complex EM visit Add On G2211 Diagnoses Seizure R56.9 Hemiparesis affecting right side as late effect of cerebrovascular accident I69.351
[2025-04-08 10:34] VITALS: BP 160/72; PULSE 65; O2SAT 99
--- OUTSIDE RECORDS SUMMARY | 2025-04-08 20:31 | XMS_ITS | Clinical Summary ---
Author Organization [facility] Address [address] [phone] Phone Care Team Providers Care Call Specialist Name Role Phone Isaiah Bradley Primary Care Provider [phone] Allergies No known active allergies Medications benazepril [...] 08/01/2021 Immunizations Immunization Administration Dates Next Due Move Loot SARS-COV-2 09/14/2021 Pfizer SARS-COV-2 03/27/2022,10/09/2020,09/19/19 21 Family [...] Exam 06/18/2020 Diabetes: Hemoglobin A1C 08/20/2024 025, 2024, 09/05/2023, Additional history exists Influenza Vaccine (#1) 2025 [...] 9.2 8.7 - 10.7 mg/dL eGFR Non-Afr Russian 60 Hemoglobin A1C 7.6(A) 4.0 - 6.0 Triglycerides 75 40 - 160 Cholesterol 218(A) 0 - 200 HDL 75(A) 35 - 70 MG/DL LDL Calculated 128 0 - 160 mg/dL 11/12/2020 Historical Provider LAB BLOOD ORDERABLES Dorothea l Result from Last 3 Months or Most Recently Relevant to Health Maintenance Insurance Medicaid [place] Medicare Care Teams Call Specialist Relationship Specialty Start Date End Date Isaiah Bradley [address] [place] [phone] PCP - General Internal Medicine 08/02/21
--- OUTSIDE RECORDS SUMMARY | 2025-04-08 20:31 | XMS_ITS | Clinical Summary ---
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), 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] Stasis dermatitis of both legs [I87.2] CKD (chronic kidney disease) [N18.9] History of CVA with residual deficit [I69.30] Hemiparesis, right ([facility]) [G81.91] Aphasia [R47.01] CHF (congestive heart failure) ([facility]) [I50.9] Nonischemic cardiomyopathy ([facility]) [I42.8] Epileptic disorder ([facility]) [G40.909] History of MS (myocardial infarction) [I25.2] 02/28/20 23 Active hydrALAZINE (APRESOLINE) 100 mg tabletIndication s:Essential (primary) hypertension TAKE 1 TABLET BY MOUTH THREE TIMES A DAY 270 tablet 1 05/23/19 25 Active spironolactone (ALDACTONE) 50 mg tablet Take 1.5 tablets (75 mg total) by mouth 1 (one) time each day. 05/26/19 25 Active labetaloL (NORMODYNE) 300 mg tabletIndication s:Essential (primary) hypertension Take 1 tablet (300 mg total) by mouth 3 (three) times a day. 270 tablet 12/03/19 25 Active valsartan (DIOVAN) 160 mg tablet TAKE 1 TABLET BY MOUTH 1 TIME EACH DAY. 90 tablet 01/17/20 25 Active aspirin-dipyrida mole (AGGRENOX) 25-200 mg per 12 hr capsule TAKE 1 CAPSULE BY MOUTH TWICE A DAY 180 capsule 1 03/06/20 25 Active Active Problems Problem Noted Date Diagnosed Date Type 2 diabetes mellitus wit h eye manifestations ([facility] V24, [facility] V28) 09/13/2023 Adrenal hyperplasia ([facility] V24) 09/05/2023 Assessment & Plan (05/05/2024 10:51 AM EST): She is scheduled to see with her chief nurse anesthetist for adrenal hyperplasia and multinodular goiter. High plasma von Willebrand factor (vWF) 09/05/19 History of MS (myocardial infarction) 02/08/2023 Overview (01/03/2024): 2/2 hemorrhagic shock 10/2022 Abnormal posture 11/12/2022 Anemia 11/12/2022 Generalized muscle weakness 11/12/2022 Other lack of coordination 11/12/2022 Presence of other specified functional implants 11/12/2022 Cerebral infarction ([facility] V24, [facility] V28) 0 11/11/2022 Elevation of levels of liver transaminase levels 11/11/2022 Nonischemic cardiomyopathy ([facility] V24, [facility] V28) 03/02/2022 Overview (01/03/2024): Last Assessment & [...] week. Aphasia 10/06/2021 CHF (congestive heart failure) ([facility] V24, [facility] V28) 10/06/2021 Stage 3 chronic kidney disease ([facility] V24, [facility] V28) 10/06/2021 Hemiplegia and hemiparesis f ollowing cerebral infarction affecting right dominant side ([facility] V24, [facility] V28) 10/06/2021 Assessment & Plan (05/05/2024 10:51 [...] associa jason with type 2 diabetes mellitus ([facility] V24, [facility] V28) 08/01/2021 Assessment & Plan (05/05/2024 10:51 [...] (05/05/2024 10:51 AM EST): She is seeing [facility] cardiology and is scheduled to see them [...] in 1 week, he will let her faro dealer know but we could increase her spironolactone dose to 100 mg daily or valsartan dose to 320 mg daily. Will monitor patient's electrolytes. Orders: Basic metabolic panel; Future Diabetes mellitus ([facility] [place], [facility] V28) Vitamin D deficiency 01/15/2013 Resolved Problems Problem Noted Date Diagnosed Date Resolved Date Non-proliferative diabetic r etinopathy, mild, both eyes ([facility]24, [facility] V28) 09/13/202311/2024 Overview (03/31/2024): Dr. Gamez Epileptic disorder ([facility]24, [facility] V28) 02/09/20 23 12/25/2024 Overview (03/31/2024): EEG with epileptiform changes after CVA 08/2021. Keppra 500 mg bid per [facility] neurology lifelong Dysphagia following cerebral infarction 12/19/2022 12/25/2024 Pressure ulcer of sacral reg ion, stage 3 ([facility], [facility] V28) 11/28/2022 12/25/2024 Diastolic congestive heart f ailure ([facility]24, [facility] V28) 11/12/2022 12/25/2024 Lymphoid interstitial pneumo kareem ([facility]24, [facility] V28) 11/12/2022 12/25/2024 Metabolic encephalopathy 11/11/202211/2024 Pleural effusion 11/11/2022 12/25/2024 Edema 08/01/2021 12/25/2024 Carpal tunnel syndrome, bilateral 05/03/2020 12/25/2024 Pain in right knee 11/17/2019 Low back pain 04/04/2013 12/25/2024 Encounters Date Type Department Care Team Description 03/20/2025 Telephone Internal Medicine [facility] [address] [place] [phone] Jill Michaels MD 02/20/2025 Telephone Internal Medicine - [facility] [address] [place] [phone] Jill Michaels MD 01/29/2025 Telephone Internal Medicine - [facility] [address] [place] [phone] Sasha Bonner NP 01/15/2025 Telephone [facility] Medicine - [facility] [address] [facility] [place] [phone] Isaiah Harley MD 01/08/2025 10:15 AM EDT Office Visit Orthopedic Surgery - [place] [address] [facility] [address] [place] [address] Andreas Smith, DPM Primary osteoarthritis of both feet (Primary Dx); Dermatophytosis of nail; Type II diabetes mellitus with peripheral circulatory disorder ([facility] V24, [facility] V28); Pain in toe of right foot; Pain in toe of left foot from Last 3 Months Immunizations Immunization Administration Dates Next Due MARIA ELENA/Bunker Mode SARS-CoV-2 COVID -19, vector-nr, rS-Ad26, preservative free 09/14/2021,09/11/2021 Pfizer (ages 12 & older) Bivalent, COVID-19 11/2021 Pfizer SARS-CoV-2 COVID-19, mRNA, LNP-S, preservative free 10/09/2020,09/18/2020 Medical History Medical History Date Comments Polyp of colon 03/20/2017 DX:Polyp of colo n Obesity (BMI 30-39.9) 03/20/2017 DX:Obesity (BMI 30-39.9) DM (diabetes mellitus), type 2 with renal complications ([facility] V24, [facility] V28) 03/20/2017 DX:DM (diabetes mellitus), t ype 2 with renal complications (HCC) DM (diabetes mellitus), type 2 with neurological complications ([facility] V24, [facility] V28) 05/03/2020 DX:DM (diabetes mellitus), t ype 2 with neurological complications (HCC) Carpal tunnel syndrome, bilateral 05/03/2020 DX:Carpal tunnel syndrome, bilateral Goiter 05/03/2020 DX:Goiter Stasis dermatitis of both legs 05/03/2020 D X:Stasis dermatitis of both legs Epileptic disorder ([facility] V24, [facility] V28) 02/08/2023 DX:Epileptic disorder (HCC); COMMENT: EEG with epileptiform changes after CVA 08/2021. Keppra 500 mg bid per [facility] neurology lifelong Stroke ([facility] V24, [facility] V28) DX:Stroke (HCC) Adrenal hyperplasia ([facility] V24) 09/05/2023 DX:Adrenal hyperplasia (HCC) Non-proliferative diabetic retinopathy, mild, both eyes ([facility] V24, [facility] V28) 09/13/2023 DX:Non-proliferative diabeti c retinopathy, mild, both eyes (HCC); COMMENT: Dr. Gamez Type 2 diabetes mellitus wit h eye manifestations ([facility] V24, [facility] V28) 09/13/2023 DX:Type 2 diabetes mellitus with [...] AM EST Office Visit Orthopedic Surgery - [place] [address] [phone] Andreas Smith, JERMAIN [address] [phone] 04/29/2025 10:30 AM EST Office Visit Internal Medicine - [facility] [address] [place], [place] [phone] Sasha Bonner, SLOANE [address] [place] [address] Health Maintenance Due Date Last Done Comments Diabetes: Annual Foot Exam 1955 DTaP,Tdap,and Td Vaccines (1 - Tdap) 1965 Pneumococcal Vaccine: 50+ Years (1 of 2 - PCV) 1965 Zoster Vaccines (1 of 2) 1965 RSV Immunization Adult Patients (1 - 1-dose 75+ series) 2021 Diabetes: Annual Urine Albumin-Creatinine Ratio (uACR) 05/05/2022 Colorectal Cancer Screening: Colonoscopy 12/03/2023 12/02/2013 Depression Screening 05/21/2024 05/05/2024, 03/01/20 23 Diabetes: Blood Sugar Control Test (HGBA1C) 11/19/2024 2024, 09/05/2023 COVID-19 Vaccine ( season) 2025 03/27/2022, 09/14/2021, 09/11/2021, Additional history [...] Name Priority Date/Time Associated Diagnosis Comments EXTERNAL DIABETIC RETINA EYE EXAM 09/29/2024 BASIC METABOLIC PANEL Routine 2024 10:49 AM EST Essential hypertension HEMOGLOBIN A1C Routine 2024 10:49 AM EST Diabetic nephropathy associated with type 2 diabetes mellitus ([facility] V24, [facility] V28) LIPID PANEL WITH REFLEX TO DIRECT LDL Routine 2024 10:49 AM EST Hyperlipidemia, unspecified hyperlipidemia type DEPRESSION SCREENING Routine 03/01/2023 HEPATITIS C SCREENING Routine 02/13/2023 DXA BONE DENSITY STUDY 1+ SITS AXIAL SKEL Routine 05/17/2017 9:20 AM EST Asymptomatic menopausal state COLONOSCOPY Routine 12/02/2013 from Last 3 Months or Most Recently Relevant to Health Maintenance Results * External Diabetic Retina Eye Exam Report (09/29/2024) Anatomical Region Laterality Modality Ultrasound us Provider [facility] US PROCEDURES Final Result * Lipid panel with reflex to direct LDL (2024 10:49 AM EST) Cholesterol 180 0 - 200 mg/dL LAB CHEMISTRY METHOD 2024 3:03 PM [facility] Triglycerides 73 0 - 150 mg/dL LAB CHEMISTRY METHOD 2024 3:03 PM [facility] HDL 65 >=40 mg/dL LAB CHEMISTRY METHOD 2024 3:03 PM [facility] LDL Calculated 100 0 - 100 mg/dL LAB CHEMISTRY METHOD 2024 3:03 PM [facility] VLDL Cholesterol Pavel 14.6 mg/dL LAB CHEMISTRY METHOD 2024 3:03 PM [facility] Non HDL Chol. (LDL+VLDL) 115 <145 mg/dL LAB CHEMISTRY METHOD 2024 3:03 PM [facility] Chol/HDL Ratio 2.8 0.0 - 4.4 LAB CHEMISTRY METHOD 2024 3:03 PM [facility] Blood Venous blood specimen / Unknown Venipuncture / Unknown 2024 10:49 AM EST 2024 10:49 AM EST Isaiah Harley MD LAB BLOOD ORDERABLES Dorothea l Result [facility] [address] [place] [address], * Hemoglobin A1c (2024 10:49 AM EST) Hemoglobin A1C 5.9 <6.5 % LAB CHEMISTRY METHOD 2024 9:17 PM [facility] Mean Bld Glu Estim. 123 mg/dL LAB CHEMISTRY METHOD 2024 9:17 PM [facility] Blood Venous blood specimen / Unknown Venipuncture / Unknown 2024 10:49 AM EST 2024 10:49 AM EST Isaiah Harley MD LAB BLOOD ORDERABLES Dorothea sabina Result [facility] [address] [place] [address], [place] [phone] * (ABNORMAL) Basic metabolic panel (2024 10:49 AM EST) Sodium 140 133 - 145 mmol/L LAB CHEMISTRY METHOD 2024 2:58 PM [facility] Potassium 3.2(L) 3.5 - 5.5 mmol/L LAB CHEMISTRY METHOD 2024 2:58 PM [facility] Chloride 107 96 - 110 mmol/L LAB CHEMISTRY METHOD 2024 2:58 PM [facility] CO2 28 21 - 32 mmol/L LAB CHEMISTRY METHOD 2024 2:58 PM [facility] Anion Gap 5 3 - 11 LAB CHEMISTRY METHOD 2024 2:58 PM [facility] Glucose 140(H) 70 - 100 mg/dL LAB CHEMISTRY METHOD 2024 2:58 PM [facility] BUN 13 5 - 25 mg/dL LAB CHEMISTRY METHOD 2024 2:58 PM [facility] Creatinine 1.07 0.50 - 1.10 mg/dL LAB CHEMISTRY METHOD 2024 2:58 PM [facility] eGFR 53(L) >=60 mL/min/1. 73m2 LAB CHEMISTRY METHOD 2024 2:58 PM [facility] Comment:Calculation based on the [...] l Result [facility] [address] [place] [address], * Depression Screening (03/01/2023) Pathologist [facility] Depression Screening completed Historical Provider HEALTH MAINTENANCE Final Result * Hepatitis C Screening (02/13/2023) Pathologist [facility] Hepatitis C Screening negatibve Historical Provider [...] (World Health Organization Fracture Risk Assessment) [facility] Department of Internal Medicine recommends using National [...] (World Health Organization Fracture Risk Assessment) [facility] Department of Internal Medicine recommendsusing National Osteoporosis [...] fracture risk by FRAX. Simona Vega MD IMG DXA PROCEDURES Final Re sult * Colonoscopy (12/02/2013) Colonoscopy abnormal Anatomical Region Laterality Modality Other Historical Provider HEALTH MAINTENANCE Final Result from Last 3 Months or Most Recently Relevant to Health Maintenance Insurance [place]ICA[place] - [place] MEDICARE Advance Directives Documents on File Type Date Recorded Patient Turner Machine Expl anation Health Care Decision (hx) 09/14/2021 [...] (hx) 08/19/2021 AD COFFMAN DIRECTIVE Care Teams Finance Specialist Relationship Specialty Start Date End Date Jill Michaels MD [address] [place] [phone] PCP - General Internal Medicine 02/16/25
--- OUTSIDE RECORDS SUMMARY | 2025-04-08 20:31 | XMS_ITS | Clinical Summary ---
Author Organization [facility] Address [address] [place] [phone] Phone Care Team Providers Care Surgical Scheduler Name Role Phone Isaiah Harley MD Primary Care Provider [phone] Allergies No known active allergies Medications spironolactone [...] VACCINE (#1) 2024 COVID-19 VACCINE ( - 2024-2 6 season) 2025 BLOOD PRESSURE 02/12/2025 08/12/2024 POTASSIUM [...] file Insurance MEDICARE PART A & B [facility] MEDICARE PART A & B [place] MED[place] PART A & [facility] MEDICARE PART A & B [facility] Care Teams Surgical Scheduler Relationship Specialty Start Date End Date Isaiah Harley MD [address] [place] [phone] PCP - General Internal Medicine 08/12/24 Additional Source Comments The information contained in this document represents components of the legal health record. It is not the complete legal health record.[facility]
--- OUTSIDE RECORDS SUMMARY | 2025-04-08 20:31 | XMS_ITS | Clinical Summary ---
Author Organization [facility] Address [address] [place] [address] Care Team Providers Care Concrete Pipe Plant Supervisor Name Role Phone Isaiah Harley MD Primary Care Provider [phone] Allergies No known active allergies Medications Medication [...] age to complete this topic Care Teams Con[employer] Pipe Plant Supervisor Relationship Specialty Start Date End Date Isaiah Harley MD [address] [place] [phone] PCP - General Internal Medicine 07/27/23
== END 2025-04-08 10:57 | disposition home or self-care (01) ==
LOC: HO.HSMS 10:32
PROVIDERS: PCP Internal Medicine; Visit Provider Psychiatry & Neurology Neurology
DX: R56.9 Unspecified convulsions (principal); I69.351 Hemiplegia and hemiparesis following cerebral infarction affecting right dominant side
CPT/HCPCS: 99214; G2211

== ENCOUNTER → 2025-04-08 10:31 | Outpatient (BNVA) | payer MEDICARE, MEDICAID, SELFPAY | PROVIDERS: PCP Internal Medicine; Visit Provider Psychiatry & Neurology Neurology | DX: I69.351 Hemiplegia and hemiparesis following cerebral infarction affecting right dominant side (principal); Z79.82 Long term (current) use of aspirin; I10 Essential (primary) hypertension; R56.9 Unspecified convulsions | CPT/HCPCS: 99212 ==

== ENCOUNTER 2025-04-21 11:17 | Outpatient (REF) | payer MEDICARE, MEDICAID, SELFPAY ==
--- OUTSIDE RECORDS SUMMARY | 2024-02-20 09:49 | XMS_ITS | Encounter Summary ---
Author Organization [facility] Address [address] [place] [address] Care Team Providers Care Diversity Intern Name Role Phone Isaiah Harley MD Primary Care Provider [phone] Encounter Details Date Type Department Care Team (Late st Contact Info) Description 02/20/2024 10:49 AM EDT Hospital Encounter TH HISTORIC ENCOUNTERS EASTERN CONVERSION ONLY Katherine Moya MD [address] [place] [phone] Social History Tobacco Use Types Packs/Day Years [...] care for your loved ones. For example, child advocate or elderly care for an older adult? [...] is a 78 y.o. female. HPI: 78-year-old -[place] female who has multiple medical issues, I [...] unspecified type ANEMIA Patient is a 78-year-old -[place] female who has multiple medical issues, I [...] Care Team (Late st Contact Info) Description 04/29/2025 10:30 AM EST Office Visit Internal Medicine - [facility] [address] [place] [address] Sasha Bonner, [address] [place] [address] 07/14/2025 10:30 AM EST Office Visit Orthopedic Surgery - [place] [address] [phone] Andreas Smith DPM [address] [phone] documented as of this encounter Visit Diagnoses Not on filedocumented in this encounter Care Teams Diversity Intern Relationship Specialty Start Date End Date Isaiah Harley MD PCP - General Internal Medicine 05/03/20 02/15/25 documented as of this encounter
--- OUTSIDE RECORDS SUMMARY | 2024-03-21 09:21 | XMS_ITS | Encounter Summary ---
Author Organization [facility] Address [address] [place] [address] Care Team Providers Care Vp Product Marketing Name Role Phone Isaiah Harley MD Primary Care Provider [phone] [phone] Encounter Details Date Type Department Care Team (Late st Contact Info) Description 03/21/2024 10:21 AM EDT Hospital Encounter TH HISTORIC ENCOUNTERS EASTERN CONVERSION ONLY Kathreine Moya MD [address] [place] [phone] Social History Tobacco Use Types Packs/Day Years [...] for your loved ones. For example, children's minister or elderly care for an older adult? [...] Sign Reading Time Taken Comments Blood Pressure 159/50 03/21/2024 10:56 AM EDT Si tting Left arm Pulse 65 03/21/2024 10:56 AM EDT Temperature - - Respiratory Rate - - Oxygen Saturation - - Inhaled Oxygen Concentration - - Weight - - Height - - Body Mass Index - - documented in this encounter Progress Notes * Katherine Moya MD - 03/21/2024 10:30 AM EDT CHIEF COMPLAINT: Follow-up IDENTIFIER:Delaney Hinton is a 78 y.o. female. HPI: Patient is a very pleasant 78-year-old -[place] female who has multiple medical problem including chronic anemia, I did extensive workup, workup is basically unremarkable, there was a question of hemolysis I checked reticulocyte count haptoglobin and Gina test, all studies were negative for any significant hemolysis ROS: Has been feeling fair, still confined to the wheelchair No significant change from previous visit of February 20, 2024 PAST MEDICAL HISTORY: Hypertension Dyslipidemia Coronary artery [...] are allergic to the following Date Reviewed: 03/21/2024 No active allergies PHYSICAL EXAM: BP 159/50 (BP Location: Left arm) Pulse 65 Temp 98.7 ??F (37.1 ??C) (Temporal) SpO2 100% ECOG 1-2 APPEARANCE: Alert and oriented in no acute distress EYES: nonicteric sclera pink conjunctiva ORAL CAVITY: No mucositis or thrush NECK: Neck supple, no significant adenopathy, HEART: normal S1 and S2 LUNG: clear to auscultation bilaterally except decreased breath sound the bases LYMPH NODES: No palpable superficial adenopathy ABDOMEN: Obese, distended soft, nontender and no organomegaly appreciated EXTREMITIES: No change LABS: WBC 5.4, hemoglobin 9.9 g, hematocrit 31%, MCV 96 and platelet count 219 Folate only 4.4 Normal iron studies Reticulocyte count normal Erythropoietin less than 10 IMPRESSION: SNOMED CT(R) 1. Anemia, unspecified type ANEMIA After reviewing history physical laboratory data this 78-year-old - [place] female does not have any significant hematological disorders she has chronic anemia of multiple etiology, including anemia of chronic disease, anemia secondary to renal insufficiency but possibility of refractory anemia due to myelodysplasia cannot be ruled out, since her recent hemoglobin is almost 10 g and she isnot significantly symptomatic, I would not do any further hematological workup, I gave her reassurance and explained patient's son in detail about potential causes of her anemia again, including anemia of chronic disease, anemia secondary renal insufficiency and possibly refractory anemia due to myelodysplasia etc. but again I will not recommend bone marrow biopsy at this time unless there is significant drop in her hemoglobin PLAN: Return to office as needed Katherine Moya MD documented in this encounter Plan of Treatment Upcoming Encounters Date Type Department Care Team (Late st Contact Info) Description 04/29/2025 10:30 AM EST Office Visit Internal Medicine - [address] [phone] Sasha Bonner NP 305 [place] [address] 07/14/2025 10:30 AM EST Office Visit Orthopedic Surgery - [place] [address] [facility] [address] [place] [phone] Andreas Smith DPChau 175 [facility] [address] [place] [phone] documented as of this encounter Procedures Procedure Name Priority Date/Time Associated Diagnosis Comments ..MISCELLANEOUS REFERENCE LAB TEST 03/21/2024 ..MISCELLANEOUS REFERENCE LAB TEST 03/21/2024 documented in this encounter Results * Miscellaneous reference lab test (03/21/2024) Provider Onbase MD LAB BLOOD ORDERABLES Final Re sult * Miscellaneous reference lab test (03/21/2024) us Provider Onbase MD LAB BLOOD ORDERABLES Final Re sult documented in this encounter Visit Diagnoses Not on filedocumented in this encounter Care Teams Vp Product Marketing Relationship Specialty Start Date End Date Isaiah Harley MD PCP - General Internal Medicine 05/03/20 02/15/25 documented as of this encounter
--- OUTSIDE RECORDS SUMMARY | 2025-04-21 14:01 | XMS_ITS | Clinical Summary ---
Author Organization [facility] Address [address] [address] Phone Care Team Providers Care Elevator Operator Freight Name Role Phone Isaiah Bradley Primary Care Provider [phone] Allergies No known active allergies Medications benazepril [...] 08/01/2021 Immunizations Immunization Administration Dates Next Due Wiz Maps SARS-COV-2 09/14/2021 Pfizer SARS-COV-2 03/27/2022,10/09/2020,09/19/19 21 Family [...] 9.2 8.7 - 10.7 mg/dL eGFR Non-Afr Djiboutian 60 Hemoglobin A1C 7.6(A) 4.0 - 6.0 Triglycerides 75 40 - 160 Cholesterol 218(A) 0 - 200 HDL 75(A) 35 - 70 MG/DL LDL Calculated 128 0 - 160 mg/dL 11/12/2020 Historical Provider LAB BLOOD ORDERABLES Dorothea l Result from Last 3 Months or Most Recently Relevant to Health Maintenance Insurance Medicaid [place] Medicaid [place] Medicare Care Teams Elevator Operator Freight Relationship Specialty Start Date End Date Isaiah Bradley [address] [place] [id number] PCP - General Internal Medicine 08/02/21
--- OUTSIDE RECORDS SUMMARY | 2025-04-21 14:01 | XMS_ITS | Clinical Summary ---
Author Organization [facility] Address [address] [place] [address] Care Team Providers Care Sheet Metal Former Name Role Phone Isaiah Harley MD Primary Care Provider [phone] Allergies No known active allergies Medications Medication [...] age to complete this topic Care Teams Sheet Metal Former Relationship Specialty Start Date End Date Isaiah Harley MD [address] [place] [id number] PCP - General Internal Medicine 07/27/23
--- OUTSIDE RECORDS SUMMARY | 2025-04-21 14:01 | XMS_ITS | Clinical Summary ---
Author Organization [facility] Address [address] [facility] [address] [place] [address] Phone Care Team Providers Care Circus Train Supervisor Name Role Phone Isaiah Harley MD Primary Care Provider [phone] Allergies No known active allergies Medications spironolactone [...] look for evidence of hypercortisolism. History of [place] (myocardial infarction) 02/08/2023 Overview (08/12/2024): 2/ hemorrhagic [...] file Insurance MEDICARE PART A & B [facility] MEDICARE PART A & B [place] MED[place] & [facility] B [facility] MEDICARE PART A & B [facility] Care Teams Circus Train Supervisor Relationship Specialty Start Date End Date Isaiah Harley MD [address] [place] [id number] PCP - General Internal Medicine 08/12/24 Additional Source Comments The information contained in this document represents components of the legal health record. It is not the complete legal health record.[facility]
--- OUTSIDE RECORDS SUMMARY | 2025-04-21 14:01 | XMS_ITS | Encounter Summary ---
Author Organization [facility] Address [address] [place] [address] Care Team Providers Care Cloth Winder Machine Operator Name Role Phone Jill Michaels MD Primary Care Provider [phone] Reason for Visit * Reason Onset Date Comments Fitting for DME 04/20/2025 Brooke Encounter Details Date Type Department Care Team (Late st Contact Info) Description 04/20/2025 Telephone Internal Medicine - [facility] [address] [place] [address] Jill Michaels MD [address] [place] Social History Tobacco Use Types Packs/Day Years [...] as of this encounter Progress Notes * George Marin - 04/20/2025 1:37 PM EST Brooke fax [phone] documented in this encounter Plan of Treatment Upcoming Encounters Date Type Department Care Team (Late st Contact Info) Description 04/29/2025 10:30 AM EST Office Visit Internal Medicine - [address] [phone] Sasha Bonner NP [address] [place] [address] 07/14/2025 10:30 AM EST Office Visit Orthopedic Surgery - [place] [address] [phone] Andreas Smith, DPM [address] [phone] documented as of this encounter Visit Diagnoses Not on filedocumented in this encounter Additional Health Concerns Assessment Noted Time PHQ-9 Depression Total Score: 0 05/05/20 10:44 AM EST documented as of this encounter Care Teams Cloth Winder Machine Operator Relationship Specialty Start Date End Date Jill Michaels MD [address] [place] [address] PCP - General Internal Medicine 02/16/25 documented as of this encounter
--- OUTSIDE RECORDS SUMMARY | 2025-04-21 14:01 | XMS_ITS | Clinical Summary ---
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) [G81.91] Aphasia [R47.01] CHF (congestive heart failure) ([facility]) [I50.9] Nonischemic cardiomyopathy ([facility]) [I42.8] Epileptic disorder ([facility]) [G40.909] History of [place] (myocardial infarction) [I25.2] 02/28/20 23 Active hydrALAZINE [...] 2 diabetes mellitus wit h eye manifestations ([facility] V24, [facility] V28) 09/13/2023 Adrenal hyperplasia ([facility] V24) 09/05/2023 Assessment & Plan (05/05/2024 10:51 AM EST): She is scheduled to see with her distributing clerk for adrenal hyperplasia and multinodular goiter. High plasma von Willebrand factor (vWF) 09/05/19 History of [place] (myocardial infarction) 02/08/2023 Overview (01/03/2024): 2/2 hemorrhagic shock 10/2022 Abnormal posture 11/12/2022 Anemia 11/12/2022 Generalized muscle weakness 11/12/2022 Other lack of coordination 11/12/2022 Presence of other specified functional implants 11/12/2022 Cerebral infarction ([facility] V24, [facility] V28) 0 11/11/2022 Elevation of levels of liver transaminase levels 11/11/2022 Nonischemic cardiomyopathy ([facility] V24, [facility] V28) 03/02/2022 Overview (01/03/2024): Last Assessment & [...] week. Aphasia 10/06/2021 CHF (congestive heart failure) ([facility] V24, [facility] V28) 10/06/2021 Stage 3 chronic kidney disease ([facility] V24, [facility] V28) 10/06/2021 Hemiplegia and hemiparesis f ollowing cerebral infarction affecting right dominant side ([facility] V24, [facility] V28) 10/06/2021 Assessment & Plan (05/05/2024 10:51 [...] associa jason with type 2 diabetes mellitus ([facility] V24, [facility] V28) 08/01/2021 Assessment & Plan (05/05/2024 10:51 [...] (05/05/2024 10:51 AM EST): She is seeing [facility] cardiology and is scheduled to see them [...] in 1 week, he will let her upholstery covers inspector know but we could increase her spironolactone [...] [facility]) 02/09/2012/25/2024 Overview (03/31/2024): EEG with epileptiform changes after CVA 08/2021. Keppra 500 mg bid per [facility] neurology lifelong Dysphagia following cerebral infarction [...] Encounters Date Type Department Care Team Description 04/20/2025 Telephone Internal Medicine - [facility] [address] [place] [address] Jill Michaels MD 04/13/2025 10:30 AM EST Office Visit Orthopedic Surgery [facility] [address] [place] [address] [address] [place] [address] Andreas Smith, DPM Primary osteoarthritis of both feet (Primary Dx); Dermatophytosis of nail; Type II diabetes mellitus with peripheral circulatory disorder ([facility] V24, [facility] V28); Pain in toe of right foot; Pain in toe of left foot 03/20/2025 Telephone Internal Medicine [address], [place] [phone] Jill Michaels MD 02/20/2025 [facility] [address] [phone] Jill Michaels MD 01/29/2025 [facility] [address] [phone] Sasha Bonner, RN RELIEF CHARGE from Last 3 Months Immunizations Immunization Administration Dates Next Due MARIA ELENA/ensembli SARS-CoV-2 COVID -19, vector-nr, rS-Ad26, preservative free 09/14/2021,09/11/2021 Pfizer (ages 12 & older) Bivalent, COVID-19 11/2021 Pfizer SARS-CoV-2 COVID-19, mRNA, LNP-S, preservative free 10/09/2020,09/18/2020 Medical History Medical History Date Comments Polyp of colon 03/20/2017 DX:Polyp of colo n Obesity (BMI 30-39.9) 03/20/2017 DX:Obesity (BMI 30-39.9) DM (diabetes mellitus), type 2 with renal complications ([facility] V24, [facility] V28) 03/20/2017 DX:DM (diabetes mellitus), t ype 2 with renal complications (HCC) DM (diabetes mellitus), type 2 with neurological complications ([facility] V24, [facility] V28) 05/03/2020 DX:DM (diabetes mellitus), t ype 2 with neurological complications (HCC) Carpal tunnel syndrome, bilateral 05/03/2020 DX:Carpal tunnel syndrome, bilateral Goiter 05/03/2020 DX:Goiter Stasis dermatitis of both legs 05/03/2020 D X:Stasis dermatitis of both legs Epileptic disorder ([facility] V24, [facility] V28) 02/08/2023 DX:Epileptic disorder (HCC); COMMENT: EEG with epileptiform changes after CVA 08/2021. Keppra 500 mg bid per [facility] neurology lifelong Stroke ([facility] V24, [facility] V28) DX:Stroke (HCC) Adrenal hyperplasia ([facility] V24) 09/05/2023 DX:Adrenal hyperplasia (HCC) Non-proliferative diabetic retinopathy, mild, both eyes ([facility] V24, [facility] V28) 09/13/2023 DX:Non-proliferative diabeti c retinopathy, mild, both eyes (HCC); COMMENT: Dr. Gamez Type 2 diabetes mellitus wit h eye manifestations ([facility] V24, [facility] V28) 09/13/2023 DX:Type 2 diabetes mellitus with [...] your loved ones. For example, child care coordinator or elderly care for an older adult? [...] AM EST Office Visit Internal Medicine - [address] [phone] Sasha Bonner NP [address] [place] [address] 07/14/2025 10:30 AM EST Office Visit Orthopedic Surgery - [place] [address] [phone] Andreas Smith, DPM [address] [phone] Health Maintenance Due Date Last Done Comments [...] nephropathy associated with type 2 diabetes mellitus ([facility]/HCC V24, [facility]/HCC V28) LIPID PANEL WITH REFLEX TO DIRECT [...] MD LAB BLOOD ORDERABLES Dorothea l Result [facility] [address] [place] [address], * Hemoglobin A1c (2024 10:49 AM EST) Hemoglobin A1C 5.9 <6.5 % LAB CHEMISTRY METHOD 2024 9:17 PM [facility] Mean Bld Glu Estim. 123 mg/dL LAB CHEMISTRY METHOD 2024 9:17 PM [facility] Blood Venous blood specimen / Unknown Venipuncture / Unknown 2024 10:49 AM EST 2024 10:49 AM EST Isaiah Harley MD LAB BLOOD ORDERABLES Dorothea sabina Result [facility] [address] [place] [address], [place] [phone] * (ABNORMAL) Basic metabolic panel (2024 10:49 [...] [facility] Comment:Calculation based on the Chronic Kidney Disease Epidemiology Collaboration (CKD-EPI) equation refit without adjustment for race. BUN/Creatinine Ratio 12.1 LAB CHEMISTRY METHOD 2024 2:58 PM [facility] Calcium 8.8 8.5 - 10.5 mg/dL LAB CHEMISTRY METHOD 2024 2:58 PM EST [facility] Blood Venous blood specimen / Unknown Venipuncture / Unknown 2024 10:49 AM EST 2024 10:49 AM EST Isaiah Harley MD LAB BLOOD ORDERABLES Dorothea l Result [facility] [address] [place] [address], [place] [phone] * Depression Screening (03/01/2023) Depression Screening completed [...] (World Health Organization Fracture Risk Assessment) [facility] Department of Internal Medicine recommends using [...] (World Health Organization Fracture Risk Assessment) [facility] Department of Internal Medicine recommendsusing National [...] Documents on File Type Date Recorded 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
[2025-04-21 18:33] LABS: Anion Gap 16 (12-20); Blood Urea Nitrogen 18 mg/dL (9-16); Calcium 9.3 mg/dL (8.4-10.2); Carbon Dioxide 25 mmol/L (22-29); Chloride 105 mmol/L (96-108); Estimated Glomerular Filt Rate 51; Potassium 3.9 mmol/L (3.3-5.1); Sodium 142 mmol/L (135-145)
== END 2025-04-21 11:18 | disposition home or self-care (01) ==
LOC: HO.HKASLDS 11:17
PROVIDERS: PCP Internal Medicine; Visit Provider Internal Medicine Nephrology
DX: I12.9 Hypertensive chronic kidney disease with stage 1 through stage 4 chronic kidney disease, or unspecified chronic kidney disease (principal); N18.31 Chronic kidney disease, stage 3a; Z79.899 Other long term (current) drug therapy
CPT/HCPCS: 36415; 80051; 82310; 82565; 84520; 99212

== ENCOUNTER 2025-04-21 11:17 | Outpatient (AMB) | payer MEDICARE, MEDICAID, SELFPAY ==
--- NOTE | 2025-04-21 11:27 | HO.NEPHOV ---
Vital Signs 04/21/25 11:30 Height 5 ft 5 in BP 150/70 H Blood Pressure Location Lt brachial Position Sitting Pulse 68 Pulse Source Pulse Oximeter Pulse Oximetry (%) 98 Oxygen Delivery Method Room Air Intake Visit Reasons: 4mon f/u w/labs-LVM Steward/Stewardess Chief Cargo Vessel Required: No Accompanied by: Son Allergies No Known Allergies Allergy (Verified 04/21/25 11:28) HPI Comments Details: Delaney was seen for management of her history of CKD and hypertension. She has had CVA with right hemiparesis. She has history of seizures and has been on Keppra. She has history of aortic stenosis and was evaluated for TAVR. She was deemed not to be a candidate for TAVR in the past. She regularly follows up cardiology. She has history of congestive heart failure. She is on multiple antihypertensive medications along with statins. She has history of adrenal hyperplasia seen on MRI and is going to be followed by an fleet manager/dispatch. She has history of anemia and pancreatic cyst. She has had colonic polyps and is due colonoscopy in 2024. She also has history of to pancreatic cyst his which was deemed not to be high risk for malignancy and Gastroenterology is closely following it up. She denies any chest pain, shortness of breath, proximal nocturnal dyspnea, orthopnea or orthostatic symptoms. Her last serum creatinine has been stable. [facility] Medical History Arthritis of knee, right Seizure Hypersomnia Snoring Polyp of colon Aortic stenosis Essential (primary) hypertension History of radioactive iodine thyroid ablation DM (diabetes mellitus), type 2 with renal complications Chronic pain of both knees Stasis dermatitis of both legs Goiter Carpal tunnel syndrome, bilateral DM (diabetes mellitus), type 2 with neurological complications Microalbuminuria Hyperlipidemia CHF (congestive heart failure) Insomnia Aphasia Hemiparesis History of CVA with residual deficit Chronic kidney disease (CKD) Nonischemic cardiomyopathy History of [place] (myocardial infarction) Epileptic disorder Adrenal hyperplasia High plasma von Willebrand factor (vWF) Surgical History S/P cardiac cath Family History Son Hypertension Social History Current occupational status: disabled Current occupation: rt handed Review of Systems Const All systems reviewed & are unremarkable except as noted in HPI and below Physical Exam Const General: comfortable and no acute distress Orientation/consciousness: patient oriented x3 HEENT Head: Yes normocephalic Mouth: Normal oral and palatal mucosa present Eyes EOM: EOMs intact bilaterally Neck Neck: Yes supple Resp Auscultation: clear to auscultation bilaterally Cardio Jugular venous distension: no JVD Rate: regular rate GI Palpation (GI): Soft to palpation Auscultation: normal bowel sounds General: Yes no CVA tenderness Back/Spine/Pelvis Back: no CVA tenderness Skin General skin exam: no rashes or lesions noted Neuro General: patient oriented x3 and moves all extremities Extrem General: Yes no pedal edema Results Reviewed Nephrology Results: Sodium, (135-145) 141 mmol/L 12/23/24 Potassium, (3.3-5.1) 3.3 mmol/L 12/23/24 Chloride, (96-108) 107 mmol/L 12/23/24 Carbon Dioxide, (22-29) 26 mmol/L 12/23/24 BUN, (9-16) 17 mg/dL H 12/23/24 Creatinine, (0.5-1.4) 1.11 mg/dL 12/23/24 Assessment & Plan Assessment & Plan (1) Essential (primary) hypertension: Code(s): I10 - Essential (primary) hypertension Category: Medical (2) CKD stage 3a, GFR 45-59 ml/min: Code(s): N18.31 - Chronic kidney disease, stage 3a Category: Medical Plan Delaney has longstanding hypertension with cardiomyopathy and history of CVA with a residual right hemiparesis. She has a diabetic. She has history of hypokalemia and has been on spironolactone 100 mg daily which should control her serum potassium and blood pressure especially given history of cardiomyopathy.( labs to be repeated after visit today). She needs to follow-up with her fleet manager/dispatch and needs labs to check for her adrenal issues. I increased her valsartan to 240 mg daily. Her blood sugar needs to be maintained at goal. She needs to maintain good hydration and minimize salt in the diet. She should not take any nonsteroidal anti-inflammatories. All these have been discussed in detail. Answered all questions. Follow-up labs ordered for today and in 2 months & appointment given Orders: Orders Blood Urea Nitrogen 2 Months I10 - Essential (primary) hypertension, N18.31 - Chronic kidney disease, stage 3a Electrolytes 2 Months I10 - Essential (primary) hypertension, N18.31 - Chronic kidney disease, stage 3a Calcium 2 Months I10 - Essential (primary) hypertension, N18.31 - Chronic kidney disease, stage 3a Electrolytes Today I10 - Essential (primary) hypertension, N18.31 - Chronic kidney disease, stage 3a Blood Urea Nitrogen Today I10 - Essential (primary) hypertension, N18.31 - Chronic kidney disease, stage 3a Creatinine Today I10 - Essential (primary) hypertension, N18.31 - Chronic kidney disease, stage 3a Creatinine 2 Months I10 - Essential (primary) hypertension, N18.31 - Chronic kidney disease, stage 3a Calcium Today I10 - Essential (primary) hypertension, N18.31 - Chronic kidney disease, stage 3a Medications: Changed From valsartan 240 mg PO DAILY To valsartan 240 mg (1.5 x 160 mg) PO DAILY 135 tabs 3RF 90 days Coding Level of Care Code Est Pt Level 4 (90245) Diagnoses Essential (primary) hypertension I10 CKD stage 3a, GFR 45-59 ml/min N18.31
[2025-04-21 11:30] VITALS: BP 150/70; PULSE 68; O2SAT 98
== END 2025-04-21 11:45 | disposition home or self-care (01) ==
LOC: HO.HKAS 11:17
PROVIDERS: PCP Internal Medicine; Visit Provider Internal Medicine Nephrology
DX: I10 Essential (primary) hypertension (principal); N18.31 Chronic kidney disease, stage 3a
CPT/HCPCS: 99214